=== PATIENT | male | born 1960 | race Hispanic/Latino ===

== ENCOUNTER 2017-02-26 23:08 | Emergency (ER) | payer BC, OTHER ==
[2017-02-26 23:20] VITALS: BMI 30.7
[2017-02-26 23:26] VITALS: TEMP 97.9
[2017-02-26] MEDS ORDERED: Sodium Chloride 0.9% 1,000 ML IV STA (23:45)
--- NOTE | 2017-02-26 23:48 | ED PDOC ---
Arrival/HPI - General Chief Complaint: Medical Clearance Time Seen by Provider: 02/26/17 23:35 Historian: Patient - History of Present Illness Narrative History of Present Illness (Text): 02/26/17 23:43 Taye Cristobal is a 56 year old male, whose past medical history includes renal CA on remission, presents to the emergency department complaining of sudden onset right low back and flank pain for past 2 hours. States that he has not experienced this pain before. States last chemo therapy was over a year ago , done by . Patient states he takes 2 Oxycodones at home daily for chronic body pains, but states he has not taken any in over a month. Denies any dysuria or hematuria. Denies fever, chills, headache, dizziness, nausea, vomiting, diarrhea, or any other complaints at this time. PMD: Oncologist: Dr. Tadeo. Time/Duration: 1-3 hours (2 hours ) Symptom Onset: Sudden Symptom Course: Unchanged Severity Level: Moderate Activities at Onset: Light Context: Home Past Medical History - Provider Review Nursing Documentation Reviewed: Yes - Past History Past History: No Previous - Infectious Disease Hx of Infectious Diseases: None - Tetanus Immunization Tetanus Immunization: Unknown - Cardiac Hx Cardiac Disorders: No Other/Comment: RENAL DISEASE - Pulmonary Hx Bronchitis: Yes - Neurological Hx Neurological Disorder: No Hx Paralysis: No - HEENT Hx HEENT Disorder: Yes (CELLULITIS TO LEFT EYE) - Renal Hx Renal Disorder: Yes (RENAL INSUFFICIENCY) Hx Dialysis: No - Endocrine/Metabolic Hx Endocrine Disorders: No - Hematological/Oncological Hx Blood Disorders: No (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ALT.) - Integumentary Hx Dermatological Disorder: (CELLULITIS TO L EYE 06-26-14,TATTOOS) Other/Comment: chemo 5 months ago for renal disease - Musculoskeletal/Rheumatological Hx Musculoskeletal Disorders: No Hx Falls: No - Gastrointestinal Hx Gastrointestinal Disorders: No Other/Comment: colonoscopy - Genitourinary/Gynecological Hx Genitourinary Disorders: Yes - Psychiatric Hx Substance Use: No - Surgical History Other/Comment: deviated septum 2014 left ft sx 1975 - Anesthesia Hx Anesthesia: Yes Hx Anesthesia Reactions: No Hx Malignant Hyperthermia: No - Suicidal Assessment Feels Threatened In Home Enviroment: No Family/Social History - Physician Review Nursing Documentation Reviewed: Yes Family/Social History: No Known Family HX Smoking Status: Never Smoked Hx Alcohol Use: No Hx Substance Use: No Hx Substance Use Treatment: No Allergies/Home Meds Allergies/Adverse Reactions: Allergies No Known Allergies Allergy (Verified 02/26/17 23:20) Review of Systems - Physician Review All systems were reviewed & negative as marked: Yes - Review of Systems Constitutional: Normal. absent: Fatigue, Fevers Respiratory: Normal. absent: SOB, Cough Cardiovascular: Normal. absent: Chest Pain Gastrointestinal: Normal. absent: Abdominal Pain, Diarrhea, Nausea, Vomiting Musculoskeletal: Other (right flank pain ) Psychiatric: Normal Physical Exam Vital Signs Reviewed: Yes Vital Signs Temp Pulse Resp BP Pulse Ox 02/27/17 02:09 61 18 136/77 96 02/27/17 00:45 60 18 157/94 H 95 02/26/17 23:23 97.9 F 84 20 216/84 H 99 Temperature: Afebrile Blood Pressure: Hypertensive Pulse: Regular Respiratory Rate: Normal Appearance: Positive for: Non-Toxic Pain Distress: None Mental Status: Positive for: Alert and Oriented X 3 - Systems Exam Head: Present: Atraumatic, Normocephalic Pupils: Present: PERRL Conjunctiva: Present: Normal Mouth: Present: Moist Mucous Membranes Respiratory/Chest: Present: Clear to Auscultation, Good Air Exchange. No: Respiratory Distress, Accessory Muscle Use Cardiovascular: Present: Regular Rate and Rhythm, Normal S1, S2. No: Murmurs Abdomen: Present: Normal Bowel Sounds. No: Tenderness, Distention, Peritoneal Signs Back: Present: CVA Tenderness (right CVA ), Paraspinal Tenderness (right) Upper Extremity: Present: NORMAL PULSES Lower Extremity: Present: NORMAL PULSES, Normal ROM, Neurovascularly Intact Neurological: Present: GCS=15, CN II-XII Intact, Speech Normal, Motor Func Grossly Intact, Normal Sensory Function, Norm Deep Tendon Reflexes Skin: Present: Warm, Dry, Normal Color. No: Rashes Psychiatric: Present: Alert, Oriented x 3, Normal Insight, Normal Concentration Medical Decision Making ED Course and Treatment: Progress Notes: 02/27/17 01:57 CT Abdomen and Pelvis results reviewed FINDINGS: Lower thorax: The bilateral lung bases are clear. ABDOMEN: Liver: No acute findings Gallbladder and bile ducts: The gallbladder is only minimally distended, with a single calcified a dependent stone. No intra-extrahepatic biliary ductal dilation. Pancreas: Limited evaluation secondary to the lack of intravenous contrast. Spleen: No acute findings. Adrenals: No acute findings. Kidneys and ureters: No obstructing stones. No hydronephrosis. The bilateral kidneys are nodular in contour. Moderate perinephric inflammatory change, more than one would expect for a patient of this age. PELVIS: Bladder: No acute findings. Reproductive: No acute findings. Appendix: The appendix is of normal caliber (series 2, image 117; series 601, image 47). ABDOMEN and PELVIS: Stomach and bowel: No acute findings. Peritoneum: No acute findings. Lymph nodes: Limited evaluation without intravenous contrast. Vasculature: No aortic aneurysm. Bones: No acute fracture. IMPRESSION: No obstructive uropathy. Infiltration of the perinephric fat within the retroperitoneum, more than normally expected for a patient of this age. Cholelithiasis, without cholecystitis. Normal appendix. On reevaluation patient states that his pain has resolved completely. He is comfortable w dc. Follow up and return precautions advised - Lab Interpretations Lab Results: 02/26/17 23:50 02/26/17 23:50 Lab Results 02/27/17 01:10: Urine Color Yellow, Urine Appearance Clear, Urine pH 6.0, Ur Specific [place] 1.010, Urine Protein Negative, Urine Glucose (UA) Negative, Urine Ketones Negative, Urine Blood Negative, Urine Nitrate Negative, Urine Bilirubin Negative, Urine Urobilinogen 0.2, Ur Leukocyte Esterase Negative, Urine Opiates Screen Negative, Urine Methadone Screen Negative, Ur Barbiturates Screen Negative, Ur Phencyclidine Scrn Negative, Ur Amphetamines Screen Negative , U Benzodiazepines Scrn Negative, U Oth Cocaine Metabols Negative, U Cannabinoids Screen Negative 02/26/17 23:50: WBC 9.8 D, RBC 5.13, Hgb 15.4, Hct 43.0, MCV 83.8, MCH 30.0, MCHC 35.8, RDW 12.7, Plt Count 188, MPV 9.5, Gran % 68.8 H, Lymph % (Auto) 21.0 L, [place] % (Auto) 7.8 H, Eos % (Auto) 2.2, Baso % (Auto) 0.2, Gran # 6.72 H, Lymph # 2.1, [place] # 0.8 H, Eos # 0.2, Baso # 0.02, Sodium 138, Potassium 3.5 L, Chloride 100, Carbon Dioxide 26, Anion Gap 16, BUN 32 H, Creatinine 2.1 H, Est GFR ( Amer) 40, Est GFR (Non-Af Amer) 33, Random Glucose 110, Calcium 9.4 , Total Bilirubin 0.4, AST 22, ALT 36, Alkaline Phosphatase 82, Total Protein 7.8, Albumin 4.1, Globulin 3.7, Albumin/Globulin Ratio 1.1, Lipase 90, Alcohol, Quantitative < 10 - RAD Interpretation Radiology Orders: 02/26/17 23:44 ABD & PELVIS W/O PO OR IV CONT [CT] Stat - Medication Orders Current Medication Orders: Discontinued Medications Sodium Chloride (Sodium Chloride 0.9%) 1,000 mls @ 999 mls/hr IV .Q1H1M STA Stop: 02/27/17 00:45 Last Admin: 02/26/17 23:59 Dose: 999 MLS/HR eMAR Start Stop Document 02/26/17 23:59 SB (Rec: 02/26/17 23:59 [facility]-[id number]) Intravenous Solution Start Date 02/26/17 Start Time 23:59 End Date 02/26/17 Ketorolac Tromethamine (Toradol) 10 mg IVP STAT STA Stop: 02/26/17 23:46 Last Admin: 02/26/17 23:59 Dose: 10 MG IVP Administration Document 02/26/17 23:59 SB (Rec: 02/27/17 00:00 [facility]-[id number]) Charges for Administration # of IVP Administrations 1 Ondansetron HCl (Zofran Inj) 4 mg IVP ONCE ONE Stop: 02/26/17 23:53 Last Admin: 02/27/17 00:00 Dose: 4 MG IVP Administration Document 02/27/17 00:00 SB (Rec: 02/27/17 00:00 [facility]-[id number]) Charges for Administration # of IVP Administrations 1 - Scribe Statement The provider has reviewed the documentation as recorded by the Ritaibe Ventura Rivera Provider Attestation: All medical record entries made by the Scribe were at my direction and personally dictated by me. I have reviewed the chart and agree that the record accurately reflects my personal performance of the history, physical exam, medical decision making, and the department course for this patient. I have also personally directed, reviewed, and agree with the discharge instructions and disposition. Disposition/Present on Arrival - Present on Arrival Any Indicators Present on Arrival: No History of DVT/PE: No History of Uncontrolled Diabetes: No Urinary Catheter: No History of Decub. Ulcer: No History Surgical Site Infection Following: None - Disposition Have Diagnosis and Disposition been Completed?: Yes Diagnosis: Low back pain Disposition: HOME/ ROUTINE Disposition Time: 02:00 Condition: IMPROVED Discharge Instructions (ExitCare): Back Pain (ED) Additional Instructions: Please follow up with your doctor. Return to the ER for any worsening symptoms or for any other concerns. Prescriptions: Naproxen [Naprosyn] 500 mg PO Q12H PRN #6 tablet PRN Reason: Pain, Moderate (4-7)
[2017-02-26 23:58] LABS: ADD MANUAL DIFF? NO
[2017-02-27 00:03] LABS: BASO # 0.02 K/mm3 (0.0-2.0); BASO % 0.2 % (0.0-3.0); EOS # 0.2 (0.0-0.7); EOS % 2.2 % (1.5-5.0); GRAN # 6.72 (1.4-6.5); GRAN % 68.8 % (50.0-68.0); LYMPH # 2.1 (1.2-3.4); MEAN CELL VOLUME 83.8 fL (80.0-105.0); MEAN CORPUSCULAR HGB CONC 35.8 g/dl (31.0-37.0); MEAN PLATELET VOLUME 9.5 fl (7.0-11.0); MONO # 0.8 (0.1-0.6); MONO % 7.8 % (1.0-6.0); PLATELET COUNT 188 10^3/uL (120.0-450.0); RED CELL DISTRIBUTION WIDTH 12.7 % (11.5-14.5); WHITE BLOOD COUNT 9.8 10^3/ul (4.5-11.0)
[2017-02-27 00:14] LABS: ALB/GLOB RATIO 1.1 (1.1-1.8); BILIRUBIN,TOTAL 0.4 mg/dL (0.2-1.3); CALCIUM 9.4 mg/dL (8.4-10.5); POTASSIUM 3.5 mmol/L (3.6-5.0); TOTAL PROTEIN 7.8 g/dL (5.8-8.3)
--- NOTE | 2017-02-27 00:48 | CT ---
EXAM: CT Abdomen and Pelvis Without Intravenous Contrast CLINICAL HISTORY: 56 years old, male; Pain; Abdominal pain; Flank; Other: Unkown; Prior surgery; Surgery type: Hernia. Kidney biopsy; Additional info: Flank pain TECHNIQUE: Axial computed tomography images of the abdomen and pelvis without intravenous contrast. This CT exam was performed using one or more of the following dose reduction techniques: automated exposure control, adjustment of the mA and/or kV according to patient size, and/or use of iterative reconstruction technique. Coronal and sagittal reformatted images were created and reviewed. COMPARISON: No relevant prior studies available. FINDINGS: Lower thorax: The bilateral lung bases are clear. ABDOMEN: Liver: No acute findings Gallbladder and bile ducts: The gallbladder is only minimally distended, with a single calcified a dependent stone. No intra-extrahepatic biliary ductal dilation. Pancreas: Limited evaluation secondary to the lack of intravenous contrast. Spleen: No acute findings. Adrenals: No acute findings. Kidneys and ureters: No obstructing stones. No hydronephrosis. The bilateral kidneys are nodular in contour. Moderate perinephric inflammatory change, more than one would expect for a patient of this age. PELVIS: Bladder: No acute findings. Reproductive: No acute findings. Appendix: The appendix is of normal caliber (series 2, image 117; series 601, image 47). ABDOMEN and PELVIS: Stomach and bowel: No acute findings. Peritoneum: No acute findings. Lymph nodes: Limited evaluation without intravenous contrast. Vasculature: No aortic aneurysm. Bones: No acute fracture. IMPRESSION: No obstructive uropathy. Infiltration of the perinephric fat within the retroperitoneum, more than normally expected for a patient of this age. Cholelithiasis, without cholecystitis. Normal appendix.
[2017-02-27 01:28] LABS: URINE BILIRUBIN NEGATIVE (NEGATIVE); URINE BLOOD NEGATIVE (NEGATIVE); URINE GLUCOSE (UA) NEGATIVE (NEGATIVE); URINE KETONE NEGATIVE (NEGATIVE); URINE LEUKOCYTE ESTERASE NEGATIVE Leu/uL (NEGATIVE); URINE PROTEIN NEGATIVE mg/dL (<30 mg/dL); URINE UROBILINOGEN 0.2 E.U./dL (<1 E.U./dL)
[2017-02-27 01:33] LABS: URINE APPEARANCE CLEAR (CLEAR); URINE COLOR YELLOW (YELLOW)
[2017-02-27 02:10] VITALS: BP 136/77; PULSE 61; RESP 18; O2SAT 96
== END 2017-02-27 02:18 | disposition home or self-care (01) ==
LOC: ED 23:08
DX: M54.5 Low back pain (principal); Z85.528 Personal history of other malignant neoplasm of kidney
CPT/HCPCS: 74176; 80053; 81003; 83690; 85025; 96374; 96375; 99283; G0480; J1885; J2405; J7040

== ENCOUNTER 2017-06-09 19:48 | Emergency (ER) | payer SELFPAY ==
[2017-06-09 19:49] VITALS: BMI 30.7
[2017-06-09 20:54] VITALS: RESP 18; TEMP 98.2
--- NOTE | 2017-06-09 21:55 | ED PDOC ---
Arrival/HPI - General Chief Complaint: Abnormal Skin Integrity Time Seen by Provider: 06/09/17 21:21 Historian: Patient - History of Present Illness Narrative History of Present Illness (Text): 06/09/17 21:53 57 y/o male, c/o lt. pelvic pain s/p slipped and fall on the lt. hip x 1 week from slipped on the wooden step. Aching pain, painful to walk and sit, no fever or chills, no headache or night sweat, no dizziness, no hematuria, no back or neck pain, no numbness or tinging, no other medical or psychological complaints. Past Medical History - Provider Review Nursing Documentation Reviewed: Yes - Past History Past History: No Previous - Infectious Disease Hx of Infectious Diseases: None - Tetanus Immunization Tetanus Immunization: Unknown - Cardiac Hx Cardiac Disorders: No Other/Comment: RENAL DISEASE - Pulmonary Hx Bronchitis: Yes - Neurological Hx Neurological Disorder: No Hx Paralysis: No - HEENT Hx HEENT Disorder: Yes (CELLULITIS TO LEFT EYE) - Renal Hx Renal Disorder: Yes (RENAL INSUFFICIENCY) Hx Dialysis: No - Endocrine/Metabolic Hx Endocrine Disorders: No - Hematological/Oncological Hx Blood Disorders: No (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ALT.) - Integumentary Hx Dermatological Disorder: (CELLULITIS TO L EYE 06-26-14,TATTOOS) Other/Comment: chemo 5 months ago for renal disease - Musculoskeletal/Rheumatological Hx Musculoskeletal Disorders: No Hx Falls: No - Gastrointestinal Hx Gastrointestinal Disorders: No Other/Comment: colonoscopy - Genitourinary/Gynecological Hx Genitourinary Disorders: Yes - Psychiatric Hx Psychophysiologic Disorder: No (OCCASIONAL BEERS) Hx Substance Use: No - Surgical History Other/Comment: deviated septum 2014 left ft sx 1975 - Anesthesia Hx Anesthesia: Yes Hx Anesthesia Reactions: No Hx Malignant Hyperthermia: No - Suicidal Assessment Feels Threatened In Home Enviroment: No Family/Social History - Physician Review Nursing Documentation Reviewed: Yes Family/Social History: Unknown Family HX Smoking Status: Never Smoked Hx Alcohol Use: No Hx Substance Use: No Hx Substance Use Treatment: No Allergies/Home Meds Allergies/Adverse Reactions: Allergies No Known Allergies Allergy (Verified 02/26/17 23:20) Review of Systems - Review of Systems Constitutional: absent: Fatigue, Fevers Eyes: absent: Vision Changes ENT: absent: Hearing Changes Respiratory: absent: SOB, Cough Cardiovascular: absent: Chest Pain Gastrointestinal: absent: Abdominal Pain, Nausea, Vomiting Musculoskeletal: Arthralgias. absent: Back Pain, Myalgias Skin: absent: Rash, Pruritis, Skin Lesions Neurological: absent: Headache, Dizziness Physical Exam Vital Signs Reviewed: Yes Vital Signs Temp Pulse Resp BP Pulse Ox 06/09/17 20:48 98.2 F 84 18 118/75 99 Temperature: Afebrile Blood Pressure: Normal Pulse: Regular Respiratory Rate: Normal Appearance: Positive for: Well-Appearing, Non-Toxic, Comfortable Pain Distress: Mild Mental Status: Positive for: Alert and Oriented X 3 - Systems Exam Head: Present: Atraumatic, Normocephalic Pupils: Present: PERRL Extroacular Muscles: Present: EOMI Conjunctiva: Present: Normal Mouth: Present: Moist Mucous Membranes Neck: Present: Normal Range of Motion Respiratory/Chest: Present: Clear to Auscultation, Good Air Exchange. No: Respiratory Distress, Accessory Muscle Use Cardiovascular: Present: Regular Rate and Rhythm, Normal S1, S2. No: Murmurs Abdomen: Present: Normal Bowel Sounds. No: Tenderness, Distention, Peritoneal Signs Back: Present: Normal Inspection. No: CVA Tenderness, Midline Tenderness, Paraspinal Tenderness, Pain with Leg Raise, Decubitus Ulcer Upper Extremity: Present: Normal Inspection. No: Cyanosis, Edema Lower Extremity: Present: Normal Inspection, Other (+ttp on the pelvic region). No: Edema Neurological: Present: GCS=15, Speech Normal, Gait Normal, Memory Normal Skin: Present: Warm, Dry, Normal Color. No: Rashes Psychiatric: Present: Alert, Oriented x 3, Normal Insight, Normal Concentration Medical Decision Making ED Course and Treatment: 06/09/17 21:54 -pelvic and hip CT -toradol IM -observe and reassess 06/09/17 23:51 -CT hip and pelvis show no acute fracture or subluxation, there is degenerative changes to the lower spine -Pain decreased, feeling much better, will discharge home. -Discharge home with naproxen, ice compression, avoid excessive sitting or standing, follow up with your own pmd and orthopedic within 2 days, return to the ER for any new or worsening signs or symptoms. - RAD Interpretation Radiology Orders: 06/09/17 21:53 PELVIS W/O PO OR IV CONTRAST [CT] Stat 06/09/17 21:55 HIP WITHOUT CONTRAST LEFT [CT] Stat CT Pelvis: FINDINGS: Bones/joints: L4 and L5 vertebral bodies are normal in height. There degenerative changes at L5/S1. There is disc space narrowing and vacuum phenomenon. There is osteophyte formation. Posterior disc bulging. Sacroiliac joints are patent. No sacral fractures identified. There are no pelvic fractures. There are no hip fractures. Soft tissues: unremarkable Vasculature: There are vascular calcifications. Stomach and bowel: There is a nonspecific gas pattern in the pelvis. Appendix and terminal ileum are unremarkable. No obstruction. No mucosal thickening. Intraperitoneal space: There is no free air or free fluid. Bladder: Bladder is partially distended. No stones. Reproductive: Seminal vesicles and prostate are unremarkable. IMPRESSION: No acute or healing fractures; degenerative changes L5-S1; no acute intraabdominal/pelvic abnormality Thank you for allowing us to participate in the care of your patient. Dictated and Authenticated by: Dian Nicholas MD 06/09/2017 11:30 PM Eastern Time ( & [place]) CT Left Hip: IMPRESSION: No acute or healing fracture; no focal soft tissue abnormality Thank you for allowing us to participate in the care of your patient. Dictated and Authenticated by: Dian Nicholas MD 06/09/2017 11:33 PM Eastern Time ([place] & [place]) Nutrition Manager: Radiologist - Medication Orders Current Medication Orders: Discontinued Medications Ketorolac Tromethamine (Toradol) 60 mg IM STAT STA Stop: 06/09/17 21:57 Last Admin: 06/09/17 22:27 Dose: 60 mg - PA / INTERN ARCHITECT / Resident Statement / has reviewed & agrees with the documentation as recorded. Disposition/Present on Arrival - Present on Arrival Any Indicators Present on Arrival: No History of DVT/PE: No History of Uncontrolled Diabetes: No Urinary Catheter: No History of Decub. Ulcer: No History Surgical Site Infection Following: None - Disposition Have Diagnosis and Disposition been Completed?: Yes Diagnosis: Accidental fall, Contusion Disposition: HOME/ ROUTINE Disposition Time: 23:52 Patient Plan: Discharge Condition: IMPROVED Additional Instructions: -Discharge home with naproxen, ice compression, avoid excessive sitting or standing, follow up with your own pmd and orthopedic within 2 days, return to the ER for any new or worsening signs or symptoms. Prescriptions: Naproxen 500 mg PO BID PRN #20 tab PRN Reason: Other Referrals: MJHsara Khan, [Primary Care Provider] - Follow up with primary Joaquina Cui MD [Staff Provider] - Follow up with primary Forms: [facility] ([place]i), WORK NOTE
--- NOTE | 2017-06-09 23:31 | CT ---
EXAM: CT Pelvis Without Intravenous Contrast CLINICAL HISTORY: 57 years old, male; Injury or trauma; Fall; Initial encounter; Blunt trauma (contusions or hematomas); Left; Pelvic region; Injury date: 1 week ago; Additional info: Lt. Pelvis pain S/P fall x 1 week TECHNIQUE: Axial computed tomography images of the pelvis without intravenous contrast. This CT exam was performed using one or more of the following dose reduction techniques: automated exposure control, adjustment of the mA and/or kV according to patient size, and/or use of iterative reconstruction technique. Coronal and sagittal reformatted images were created and reviewed. EXAM DATE/TIME: 06/09/2017 9:53 PM COMPARISON: CT - ABD PELVIS W/O PO OR IV CONT 02/27/2017 12:00:55 AM FINDINGS: Bones/joints: L4 and L5 vertebral bodies are normal in height. There degenerative changes at L5/S1. There is disc space narrowing and vacuum phenomenon. There is osteophyte formation. Posterior disc bulging. Sacroiliac joints are patent. No sacral fractures identified. There are no pelvic fractures. There are no hip fractures. Soft tissues: unremarkable Vasculature: There are vascular calcifications. Stomach and bowel: There is a nonspecific gas pattern in the pelvis. Appendix and terminal ileum are unremarkable. No obstruction. No mucosal thickening. Intraperitoneal space: There is no free air or free fluid. Bladder: Bladder is partially distended. No stones. Reproductive: Seminal vesicles and prostate are unremarkable. IMPRESSION: No acute or healing fractures; degenerative changes L5-S1; no acute intra-abdominal/pelvic abnormality
--- NOTE | 2017-06-09 23:34 | CT ---
EXAM: CT Left Lower Extremity Without Intravenous Contrast, Hip CLINICAL HISTORY: 57 years old, male; Injury or trauma; Fall; Initial encounter; Blunt trauma; Hip; Left; Injury date: 1 week ago; Additional info: Lt. Hip/gluteal pain S/P fall x 1 week TECHNIQUE: Axial computed tomography images of the left hip without intravenous contrast. This CT exam was performed using one or more of the following dose reduction techniques: automated exposure control, adjustment of the mA and/or kV according to patient size, and/or use of iterative reconstruction technique. Coronal and sagittal reformatted images were created and reviewed. EXAM DATE/TIME: 06/09/2017 9:55 PM COMPARISON: CT - ABD PELVIS W/O PO OR IV CONT 02/27/2017 12:00:55 AM FINDINGS: Bones/joints: Left acetabulum is intact. Left ischium and pubis are intact. Proximal left femur is intact. There are no acute or healing fractures. Femoral head is anatomically positioned within the acetabulum. Soft tissues: There is no focal soft tissue swelling about the left hip. Vasculature: Vascular structures are unremarkable. Lymph nodes: There are shotty inguinal nodes. IMPRESSION: No acute or healing fracture; no focal soft tissue abnormality
[2017-06-10] VITALS: BP 128/74; PULSE 74; O2SAT 100
== END 2017-06-10 | disposition home or self-care (01) ==
LOC: ED 19:48
DX: S30.0XXA Contusion of lower back and pelvis, initial encounter (principal); W01.0XXA Fall on same level from slipping, tripping and stumbling without subsequent striking against object, initial encounter; Y93.9 Activity, unspecified; Y92.9 Unspecified place or not applicable
CPT/HCPCS: 72192; 73700; 96372; 99283; J1885

== ENCOUNTER 2017-08-26 18:35 | Emergency (ER) | payer MEDICARE ==
[2017-08-26 18:43] VITALS: BMI 26.1
[2017-08-26 18:48] VITALS: BP 190/106; PULSE 80; RESP 16; TEMP 98.8; O2SAT 96
[2017-08-26] MEDS ORDERED: PrednisoLONE 1% Opht Susp(5 ml) OD STA (19:15)
--- NOTE | 2017-08-26 19:28 | ED PDOC ---
Arrival/HPI - General Chief Complaint: Eye Problem Time Seen by Provider: 08/26/17 18:53 Historian: Patient - History of Present Illness Narrative History of Present Illness (Text): 08/26/17 19:33 57 y/o male w/ hx of uveitis presents with right eye pain since last night. Pain is worse with light. States his vision is blurry in the right eye due to watery discharge. States he gets the same pain every yr due to his hx of uveitis. His soft iron inspector is. Dr. Glover and he follows up with him every yr. pt denies any recent trauma to the eye or foreign body sensation. Past Medical History - Provider Review Nursing Documentation Reviewed: Yes - Travel History Have you recently traveled outside [place] w/in the past 3 mons?: No - Past History Past History: No Previous - Infectious Disease Hx of Infectious Diseases: None - Tetanus Immunization Tetanus Immunization: Unknown - Cardiac Hx Cardiac Disorders: No Hx Hypertension: Yes Other/Comment: RENAL DISEASE - Pulmonary Hx Bronchitis: Yes - Neurological Hx Neurological Disorder: No Hx Paralysis: No - HEENT Hx HEENT Disorder: Yes (CELLULITIS TO LEFT EYE) - Renal Hx Renal Disorder: Yes (RENAL INSUFFICIENCY) Hx Dialysis: No Other/Comment: kidney problem - Endocrine/Metabolic Hx Endocrine Disorders: No - Hematological/Oncological Hx Blood Disorders: No (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ALT.) - Integumentary Hx Dermatological Disorder: (CELLULITIS TO L EYE 06-26-14,TATTOOS) Other/Comment: chemo 5 months ago for renal disease - Musculoskeletal/Rheumatological Hx Musculoskeletal Disorders: No Hx Falls: No - Gastrointestinal Hx Gastrointestinal Disorders: No Other/Comment: colonoscopy - Genitourinary/Gynecological Hx Genitourinary Disorders: Yes - Psychiatric Hx Psychophysiologic Disorder: No (OCCASIONAL BEERS) Hx Substance Use: No - Surgical History Other/Comment: deviated septum 2014 left ft sx 1975 - Anesthesia Hx Anesthesia: Yes Hx Anesthesia Reactions: No Hx Malignant Hyperthermia: No - Suicidal Assessment Feels Threatened In Home Enviroment: No Family/Social History - Physician Review Nursing Documentation Reviewed: Yes Family/Social History: Unknown Family HX Smoking Status: Never Smoked Hx Alcohol Use: Yes Frequency of alcohol use: Socially Hx Substance Use: No Hx Substance Use Treatment: No Allergies/Home Meds Allergies/Adverse Reactions: Allergies No Known Allergies Allergy (Verified 02/26/17 23:20) Home Medications: Home Meds Medication Instructions Recorded Confirmed No Known Home Med 08/26/17 08/26/17 Review of Systems - Physician Review All systems were reviewed & negative as marked: Yes - Review of Systems Constitutional: absent: Fevers Eyes: Vision Changes, Photophobia, Eye Pain Physical Exam Vital Signs Reviewed: Yes Vital Signs Temp Pulse Resp BP Pulse Ox 08/26/17 18:35 98.8 F 80 16 190/106 H 96 Temperature: Afebrile Blood Pressure: Hypertensive Pulse: Regular Respiratory Rate: Normal Appearance: Positive for: Non-Toxic Pain Distress: Mild Mental Status: Positive for: Alert and Oriented X 3 - Systems Exam Head: Present: Atraumatic, Normocephalic Pupils: Present: Other (pupils round and reactive to light) Extroacular Muscles: Present: EOMI Conjunctiva: Present: Injected (right ) Neurological: Present: GCS=15, CN II-XII Intact Psychiatric: Present: Alert, Oriented x 3 Medical Decision Making ED Course and Treatment: 08/26/17 19:[address] Glover who recommended administering pred forte and follow up with him in the office on Monday08/28/17 at 9 am. Pt expressed understanding and agrees with the plan. Reassessment Condition: Improved - Medication Orders Current Medication Orders: Discontinued Medications Acetaminophen (Tylenol 325mg Tab) 975 mg PO STAT STA Stop: 08/26/17 19:20 Last Admin: 08/26/17 19:25 Dose: 975 mg MAR Pain/Vitals Document 08/26/17 19:25 PATRICIA (Rec: 08/26/17 19:25 PATRICIA [id number]) Pain Reassessment Is This A Pain ReAssessment? No Prednisolone Acetate (Pred Forte 1% Opht Susp) 2 ml OD STAT STA Stop: 08/26/17 19:16 Last Admin: 08/26/17 19:28 Dose: 2 drop Disposition/Present on Arrival - Present on Arrival Any Indicators Present on Arrival: No History of DVT/PE: No History of Uncontrolled Diabetes: No Urinary Catheter: No History of Decub. Ulcer: No History Surgical Site Infection Following: None - Disposition Have Diagnosis and Disposition been Completed?: Yes Diagnosis: Uveitis Disposition: HOME/ ROUTINE Disposition Time: 19:25 Patient Plan: Discharge Patient Problems: Current Active Problems Problem Status Onset Uveitis Acute Condition: STABLE Discharge Instructions (ExitCare): Eye Pain (ED) Print Language: SWEDISH Additional Instructions: Administer pred forte eye drop 2 drops on right eye 4 times a day. Follow up with Dr. Glover on Monday08/28/17 at 9 am. Referrals: Jovanni Garrido MD [Primary Care Provider] - Follow up with primary Ke Glover MD [Staff Provider] - Follow up with primary Forms: [employer] ([employer])
== END 2017-08-26 19:36 | disposition home or self-care (01) ==
LOC: ED 18:35
DX: H20.9 Unspecified iridocyclitis (principal)

== ENCOUNTER 2017-11-13 12:59 | Inpatient (IN) | payer MEDICARE ==
[2017-11-13 13:12] VITALS: BMI 25.4
[2017-11-13] MEDS ORDERED: Tetracaine 0.5% Ophth 2 ML BOTTLE OD STA (13:21)
[2017-11-13] MEDS ORDERED: Oxycodone/Acetaminophen 5/325 mg Tab PO STA (13:22)
--- NOTE | 2017-11-13 13:24 | ED PDOC ---
Arrival/HPI - General Chief Complaint: Eye Problem Time Seen by Provider: 11/13/17 13:13 Historian: Patient - History of Present Illness Narrative History of Present Illness (Text): 11/13/17 14:38 pt p/w + ~ 1-2 days onset of right eye pain/right nasal region pain with clear nasal discharge; pt states since last night with blurry vision; pt states similiar symptoms occurred 1 year ago and was dx with Uveitis/possible nasal infection; pt had remaining optho steroids left from last treatment and he used a few drops of it last night; pt states pain/itching/irritation is severe at most pain is 8-9/10; pt states no fever/chills/sweats, + mild headache, no neck pain, no cp/sob/palpitations, no abd pain, no n/v, no numbness/tingling, no urinary/bowel changes, no fall/trauma/sick contact, no travel; pt is here for further eval; pt's without other complaints. PMD: Dr. Jovanni Garrido 11/13/17 18:17 Time/Duration: < week (2 days) Symptom Onset: Sudden Symptom Course: Worsening Quality: Stabbing Severity Level: 9, Severe Activities at Onset: Light Past Medical History - Provider Review Nursing Documentation Reviewed: Yes - Travel History Have you recently traveled outside [place] w/in the past 3 mons?: No - Past History Past History: No Previous - Infectious Disease Hx of Infectious Diseases: None - Tetanus Immunization Tetanus Immunization: Unknown - Reproductive Currently Lactating: No - Cardiac Hx Cardiac Disorders: No Hx Hypertension: Yes Other/Comment: RENAL DISEASE - Pulmonary Hx Bronchitis: Yes - Neurological Hx Neurological Disorder: No - HEENT Hx HEENT Disorder: Yes (CELLULITIS TO LEFT EYE) - Renal Hx Renal Disorder: Yes (RENAL INSUFFICIENCY) Hx Dialysis: No Other/Comment: kidney problem - Endocrine/Metabolic Hx Endocrine Disorders: No - Hematological/Oncological Hx Blood Disorders: No (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ALT.) - Integumentary Hx Dermatological Disorder: (CELLULITIS TO L EYE 06-26-14,TATTOOS) Other/Comment: chemo 5 months ago for renal disease - Musculoskeletal/Rheumatological Hx Musculoskeletal Disorders: No - Gastrointestinal Hx Gastrointestinal Disorders: No Other/Comment: colonoscopy - Genitourinary/Gynecological Hx Genitourinary Disorders: Yes - Psychiatric Hx Psychophysiologic Disorder: No (OCCASIONAL BEERS) Hx Substance Use: No - Surgical History Other/Comment: deviated septum 2014 left ft sx 1976 - Anesthesia Hx Anesthesia: Yes Hx Anesthesia Reactions: No Hx Malignant Hyperthermia: No - Suicidal Assessment Feels Threatened In Home Enviroment: No Family/Social History - Physician Review Nursing Documentation Reviewed: Yes Family/Social History: No Known Family HX Smoking Status: Never Smoked Hx Alcohol Use: Yes Frequency of alcohol use: Socially Hx Substance Use: No Hx Substance Use Treatment: No Allergies/Home Meds Allergies/Adverse Reactions: Allergies No Known Allergies Allergy (Verified 02/26/17 23:20) Home Medications: Home Meds Medication Instructions Recorded Confirmed No Known Home Med 08/26/17 08/26/17 Review of Systems - Review of Systems Constitutional: Normal Eyes: Vision Changes, Eye Pain ENT: Rhinorrhea Respiratory: Normal Cardiovascular: Normal Gastrointestinal: Normal Genitourinary Male: Normal Musculoskeletal: Normal Skin: Normal Neurological: Normal Endocrine: Normal Hemo/Lymphatic: Normal Psychiatric: Normal Physical Exam Vital Signs Reviewed: Yes (elevated BP) Vital Signs Temp Pulse Resp BP Pulse Ox 11/13/17 17:44 51 L 18 149/90 98 11/13/17 13:00 97.7 F 70 18 184/102 H 99 Temperature: Afebrile Blood Pressure: Hypertensive Pulse: Regular Respiratory Rate: Normal Appearance: Positive for: Well-Appearing, Non-Toxic, Other (uncomfortable, moderate distress due to right eye pain, resting on exam bed, cooperative, alert /awake) Pain Distress: Moderate Mental Status: Positive for: Alert and Oriented X 3 - Systems Exam Head: Present: Atraumatic, Normocephalic Pupils: Present: Sluggish (right eye: sclera injection/swelling/chemosis is noted; does not traverse the cornea; + slight photophobia is noted; Fluroescine stain: NO uptake is noted; no FB/obvious masses/lesions noted; visual acuity: 20 /40 right and left, 20/40 b/l; left EYE: WNL, PERRLA, EOMI, scler anicteric), Other Extroacular Muscles: Present: EOMI, Other Conjunctiva: Present: Normal Mouth: Present: Moist Mucous Membranes, Other (uvula/tongue are midline, no exudate/lesions, no drooling/stridor) Pharnyx: Present: Normal Neck: Present: Normal Range of Motion, Trachea Midline. No: MIDLINE TENDERNESS Respiratory/Chest: Present: Clear to Auscultation, Good Air Exchange, Other ( CTA b/l, no w/r/r). No: Respiratory Distress, Accessory Muscle Use Cardiovascular: Present: Regular Rate and Rhythm, Normal S1, S2, Other (no regurg). No: Murmurs Abdomen: Present: Normal Bowel Sounds. No: Tenderness, Distention, Peritoneal Signs Back: Present: Normal Inspection Upper Extremity: Present: Normal Inspection, Normal ROM, NORMAL PULSES, Neurovascularly Intact, Capillary Refill < 2s. No: Cyanosis, Edema Lower Extremity: Present: Normal Inspection, NORMAL PULSES, Other (+1/5 b/l pitting edema noted up to mid tib-fib; no mac's sign noted b/l, strength 5/5 grossly intact in all limbs, neurovasc intact b/l). No: Edema Neurological: Present: GCS=15, CN II-XII Intact, Speech Normal Skin: Present: Warm, Dry, Normal Color, Other (cap refill < 1 sec, no ulcerations, no petechiae, no pallor). No: Rashes Psychiatric: Present: Alert, Oriented x 3, Normal Insight, Normal Concentration Medical Decision Making ED Course and Treatment: 11/13/17 14:12 Impression: right eye pain/right face pain i have consider all the differential diagnosis regarding pt's chief medical complaints/clinical findings, including but are not limited to: uveitis vs iritis, corneal abrasion; FB; orbital/pre-orbital cellulitis; nasal infection; shingles A/P: right eye pain - labs - cultures - iv - ct - observe - supportive care 11/13/2017 14:[address] IMPRESSION: No acute intracranial hemorrhage. Dictator: Taye Pete DO 11/13/17 15:[address] Glover ~ 40min without reply 11/13/17 18:[address] Glover ~ 4:30pm - states agrees with ED mgt/txt, would like pt started on PredForte 1 drop t1ohrbo; cyclogel 1% 1 drop to right eye TID; and prednisone 20mg po TID; pt will be evaluated tomorrow by Dr Glover I spoke to fusion operator PCP, Dr Hirsch, made aware, agrees with ED mgt/txt/dx, agrees with admission pt states his pain is more tolerable pt is made aware of his medical results agrees with admission Re-evaluation Time: 15:23 Reassessment Condition: Improving,but remains with symptoms - Lab Interpretations Lab Results: 11/13/17 14:20 11/13/17 14:20 Lab Results 11/13/17 14:20: Sodium 142, Potassium 4.4, Chloride 104, Carbon Dioxide 27, Anion Gap 15, BUN 18, Creatinine 2.2 H, Est GFR ( Amer) 38, Est GFR (Non- Af Amer) 31, Random Glucose 92, Calcium 10.1, Total Bilirubin 0.4, AST 19, ALT 30, Alkaline Phosphatase 80, Total Protein 7.3, Albumin 4.0, Globulin 3.3, Albumin/Globulin Ratio 1.2 11/13/17 14:20: PT 10.9, INR 1.00, APTT 32.1 11/13/17 14:20: WBC 10.1, RBC 5.33, Hgb 16.0, Hct 45.7, MCV 85.7, MCH 30.0, MCHC 35.0, RDW 13.3, Plt Count 155, MPV 9.6, Gran % 76.8 H, Lymph % (Auto) 16.0 L, [place] % (Auto) 5.7, Eos % (Auto) 1.3 L, Baso % (Auto) 0.2, Gran # 7.76 H, Lymph # 1.6, [place] # 0.6, Eos # 0.1, Baso # 0.02, ESR 11 elevated CREAT I have reviewed the lab results: Yes Interpretation: Abnormal lab values - RAD Interpretation Radiology Orders: 11/13/17 13:19 ORBITS/ FACIALS W/O CONTRAST [CT] Stat 11/13/17 13:25 Brain [HEAD W/O CONTRAST] [CT] Stat PROCEDURE: CT HEAD WITHOUT CONTRAST. HISTORY: Right sided headache. Allergic reaction eye and face. COMPARISON: Lipoma Correlation also made with concurrent CT scan orbits. Comparison also made with prior CT scan of the brain 03/30/2015. TECHNIQUE: Axial computed tomography images were obtained through the head/brain without intravenous contrast. Radiation dose: Total exam DLP = 823.33 mGy-cm. This CT exam was performed using one or more of the following dose reduction techniques: Automated exposure control, adjustment of the mA and/or kV according to patient size, and/or use of iterative reconstruction technique. FINDINGS: HEMORRHAGE: No acute parenchymal, subarachnoid nor extra-axial hemorrhage. BRAIN: No obvious parenchymal nor extra-axial masses or collections seen on this noncontrast study. VENTRICLES: Unremarkable. No hydrocephalus. CALVARIUM: Unremarkable. PARANASAL SINUSES: Postoperative changes of the nasal cavity in the medial wall antrostomy defects and partial ethmoidectomy again noted. . There is there complete opacification right maxillary antrum and minor mucosal thickening within the residual ethmoid air cells and sphenoid sinus. MASTOID AIR CELLS: Unremarkable as visualized. No inflammatory changes. OTHER FINDINGS: Questionable mild left periorbital soft tissue swelling. Globes intact and lenses appropriately located. There are no retrobulbar hemorrhages or collections seen. IMPRESSION: No acute intracranial hemorrhage. HISTORY: Right orbital pain/teary eye; history of R eye/nose infection PROCEDURE: CT orbits dated 11/13/2017. COMPARISON: Correlation made with concurrent CT scan of the brain and prior CT scan brain TECHNIQUE: Contiguous helical/ transaxial l CT images of the orbits were obtained. Coronal and sagittal reformats were generated. Radiation dose: Total exam DLP = 489.95 MGy-cm. This CT exam was performed using one or more of the following dose reduction techniques: Automated exposure control, adjustment of the mA and/or kV according to patient size, and/or use of iterative reconstruction technique. FINDINGS: The current study re- demonstrates postsurgical changes of the nasal cavity and paranasal sinuses. . There has been resection of the middle turbinates and medial allen both maxillary antra. Partial ethmoidectomy also noted. Near complete opacification of the right maxillary antrum. There is mild mucosal thickening seen within multiple residual ethmoid air cells extending superiorly into the inferior margin of the frontal sinus. Minor mucosal thickening present within the sphenoid sinus. There appears to be an periorbital right periorbital infiltration and swelling with less on pronounced left periorbital of infiltration. Minimal on extension into the supraorbital and infraorbital soft tissues. Findings suggest the periorbital cellulitis. No evidence of postseptal extension. The globes intact and lenses appropriately located. There are no retrobulbar hemorrhages or collections. Optic nerves and extraocular musculature unremarkable. There is minor focal leftward deviation of the anterior margin of the nasal septum. Probable old fracture deformity right nasal bone IMPRESSION: Postoperative changes of the nasal cavity and paranasal sinuses as described. Subtotal opacification right maxillary antrum with mild mucosal thickening several residual ethmoid air cells extending superiorly into the inferior margin of the frontal sinus. There is also minor mucosal thickening in the sphenoid sinus. Mild to moderate right periorbital soft tissue swelling which extends slightly into the supraorbital and to a lesser degree infraorbital soft tissues. . Findings consistent with periorbital cellulitis. No evidence of postseptal extension. There appears to be some minor left periorbital soft tissue swelling as well. Lubricating Specialist: Radiologist - Medication Orders Current Medication Orders: Cyclopentolate HCl (Cyclogyl 1% Opht) 1 drop OD TID FINESSE Last Admin: 11/13/17 18:15 Dose: 1 drop Prednisolone Acetate (Pred Forte 1% Opht Susp) 1 ml OD Q2 FINESSE Discontinued Medications Ampicillin Sodium/Sulbactam (Sodium 3 gm/ Sodium Chloride) 100 mls @ 100 mls/ hr IVPB STAT STA PRN Reason: Protocol Stop: 11/13/17 16:18 Last Admin: 11/13/17 15:49 Dose: 100 mls/hr eMAR Start Stop Document 11/13/17 15:49 SRE (Rec: 11/13/17 15:51 SRE [id number]) Intravenous Solution Start Date 11/13/17 Start Time 15:51 End Date 11/13/17 End time 16:50 Total Infusion Time 59 Ibuprofen (Motrin Tab) 400 mg PO STAT STA Stop: 11/13/17 13:23 Last Admin: 11/13/17 13:29 Dose: 400 mg [facility] Pain/Vitals Document 11/13/17 13:29 SRE (Rec: 11/13/17 13:30 SRE [id number]) Pain Reassessment Is This A Pain ReAssessment? Yes Sleep Is patient sleeping during reassessment? No Presence of Pain Presence of Pain Yes Pain Scale Used Pain Scale Used Numeric Location Left, Right or Bilateral Right Pain Location Body Site Eye Description Constant Scale Used Numeric Re-Assess: [facility] Pain/Vitals Document 11/13/17 14:29 SRE (Rec: 01/01/18 15:31 SRE [id number]) Pain Reassessment Is This A Pain ReAssessment? Yes Sleep Is patient sleeping during reassessment? No Presence of Pain Presence of Pain Yes Pain Scale Used Pain Scale Used Numeric Location Left, Right or Bilateral Right Pain Location Body Site Eye Description Constant Oxycodone/Acetaminophen (Percocet 5/325 Mg Tab) 1 tab PO STAT STA Stop: 11/13/17 13:23 Last Admin: 11/13/17 13:31 Dose: 1 tab [facility] Pain Assessment Document 11/13/17 13:31 SRE (Rec: 11/13/17 13:31 SRE [id number]) Pain Reassessment Is this a pain reassessment? Yes Re-Assess: [facility] Pain Assessment Document 11/13/17 14:31 SRE (Rec: 11/13/17 15:31 SRE [id number]) Pain Reassessment Is this a pain reassessment? Yes Sleep Is patient sleeping during reassessment? No Presence of Pain Presence of Pain Yes Pain Scale Used Pain Scale Used Numeric Location Left, Right or Bilateral Right Pain Location Body Site Eye Description Description Constant Prednisone (Prednisone Tab) 20 mg PO STAT STA Stop: 11/13/17 16:38 Last Admin: 11/13/17 17:28 Dose: 20 mg Tetracaine HCl (Tetracaine 0.5% Ophth Soln) 3 drop OD STAT STA Stop: 11/13/17 13:22 Last Admin: 11/13/17 13:31 Dose: 1 bottle Disposition/Present on Arrival - Present on Arrival Any Indicators Present on Arrival: No History of DVT/PE: No History of Uncontrolled Diabetes: No Urinary Catheter: No History of Decub. Ulcer: No History Surgical Site Infection Following: None - Disposition Have Diagnosis and Disposition been Completed?: Yes Diagnosis: Pain, eye, right, Periorbital cellulitis of right eye, Chronic renal failure, Uveitis Disposition: HOSPITALIZED Disposition Time: 17:15 Patient Plan: Admission Condition: STABLE Discharge Instructions (ExitCare): Cellulitis (ED) Referrals: Jovanni Garrido MD [Primary Care Provider] - Follow up with primary Forms: MD [employer] (Kinyarwanda)
--- NOTE | 2017-11-13 14:23 | CT ---
PROCEDURE: CT HEAD WITHOUT CONTRAST. HISTORY: Right sided headache. Allergic reaction eye and face. COMPARISON: Lipoma Correlation also made with concurrent CT scan orbits. Comparison also made with prior CT scan of the brain 03/30/2015. TECHNIQUE: Axial computed tomography images were obtained through the head/brain without intravenous contrast. Radiation dose: Total exam DLP = 823.33 mGy-cm. This CT exam was performed using one or more of the following dose reduction techniques: Automated exposure control, adjustment of the mA and/or kV according to patient size, and/or use of iterative reconstruction technique. FINDINGS: HEMORRHAGE: No acute parenchymal, subarachnoid nor extra-axial hemorrhage. BRAIN: No obvious parenchymal nor extra-axial masses or collections seen on this noncontrast study. VENTRICLES: Unremarkable. No hydrocephalus. CALVARIUM: Unremarkable. PARANASAL SINUSES: Postoperative changes of the nasal cavity in the medial wall antrostomy defects and partial ethmoidectomy again noted. . There is there complete opacification right maxillary antrum and minor mucosal thickening within the residual ethmoid air cells and sphenoid sinus. MASTOID AIR CELLS: Unremarkable as visualized. No inflammatory changes. OTHER FINDINGS: Questionable mild left periorbital soft tissue swelling. Globes intact and lenses appropriately located. There are no retrobulbar hemorrhages or collections seen. IMPRESSION: No acute intracranial hemorrhage.
[2017-11-13 14:33] LABS: BASO # 0.02 K/mm3 (0.0-2.0); BASO % 0.2 % (0.0-3.0); EOS # 0.1 (0.0-0.7); EOS % 1.3 % (1.5-5.0); GRAN # 7.76 (1.4-6.5); GRAN % 76.8 % (50.0-68.0); LYMPH # 1.6 (1.2-3.4); MEAN CELL VOLUME 85.7 fl (80.0-105.0); MEAN PLATELET VOLUME 9.6 fl (7.0-11.0); MONO # 0.6 (0.1-0.6); MONO % 5.7 % (1.0-6.0); RBC 5.33 10^6/uL (3.5-6.1); RED CELL DISTRIBUTION WIDTH 13.3 % (11.5-14.5); WHITE BLOOD COUNT 10.1 10^3/ul (4.5-11.0)
[2017-11-13 14:44] LABS: ALB/GLOB RATIO 1.2 (1.1-1.8); CALCIUM 10.1 mg/dL (8.4-10.5)
[2017-11-13 14:49] LABS: PARTIAL THROMBOPLASTIN TIME 32.1 Seconds (25.1-36.5); PROTHROMBIN TIME 10.9 SECONDS (9.4-12.5)
--- NOTE | 2017-11-13 14:55 | CT ---
HISTORY: Right orbital pain/teary eye; history of R eye/nose infection PROCEDURE: CT orbits dated 11/13/2017. COMPARISON: Correlation made with concurrent CT scan of the brain and prior CT scan brain 03/30/2015 TECHNIQUE: Contiguous helical/ transaxial l CT images of the orbits were obtained. Coronal and sagittal reformats were generated. Radiation dose: Total exam DLP = 489.95 MGy-cm. This CT exam was performed using one or more of the following dose reduction techniques: Automated exposure control, adjustment of the mA and/or kV according to patient size, and/or use of iterative reconstruction technique. FINDINGS: The current study re- demonstrates postsurgical changes of the nasal cavity and paranasal sinuses. . There has been resection of the middle turbinates and medial allen both maxillary antra. Partial ethmoidectomy also noted. Near complete opacification of the right maxillary antrum. There is mild mucosal thickening seen within multiple residual ethmoid air cells extending superiorly into the inferior margin of the frontal sinus. Minor mucosal thickening present within the sphenoid sinus. There appears to be an periorbital right periorbital infiltration and swelling with less on pronounced left periorbital of infiltration. Minimal on extension into the supraorbital and infraorbital soft tissues. Findings suggest the periorbital cellulitis. No evidence of postseptal extension. The globes intact and lenses appropriately located. There are no retrobulbar hemorrhages or collections. Optic nerves and extraocular musculature unremarkable. There is minor focal leftward deviation of the anterior margin of the nasal septum. Probable old fracture deformity right nasal bone IMPRESSION: Postoperative changes of the nasal cavity and paranasal sinuses as described. Subtotal opacification right maxillary antrum with mild mucosal thickening several residual ethmoid air cells extending superiorly into the inferior margin of the frontal sinus. There is also minor mucosal thickening in the sphenoid sinus. Mild to moderate right periorbital soft tissue swelling which extends slightly into the supraorbital and to a lesser degree infraorbital soft tissues. . Findings consistent with periorbital cellulitis. No evidence of postseptal extension. There appears to be some minor left periorbital soft tissue swelling as well.
[2017-11-13] MEDS: CYCLOPENTOLATE 1% OD SCH (18:15)
[2017-11-13] MEDS: PrednisoLONE 1% Opht Susp(5 ml) OD SCH ×3 (18:32→22:18)
[2017-11-13] MEDS ORDERED: AMPicillin/Sulbactam 1.5gm 1 GM/100 ML BAG IVPB ONE (21:05)
[2017-11-13] MEDS ORDERED: Oxycodone/Acetaminophen 5/325 mg Tab PO PRN (21:10)
[2017-11-13] MEDS ORDERED: Influenza Vaccine 60 mcg/0.5 mL SYR (4YR UP) IM ONE (22:36)
[2017-11-13] MEDS ORDERED: Pneumococcal 23-Valent Vaccine IM ONE (22:36)
[2017-11-13] MEDS: Piperacillin/Tazobact 3.375 gm 100 ML IVPB SCH (23:16)
[2017-11-14] MEDS: PrednisoLONE 1% Opht Susp(5 ml) OD SCH ×12 (02:34→21:56)
[2017-11-14] MEDS: Piperacillin/Tazobact 3.375 gm 100 ML IVPB SCH (06:12)
--- NOTE | 2017-11-14 09:52 | CON ---
DATE: HISTORY OF PRESENT ILLNESS: Mr. Cristobal was asked to be seen by me for uveitis in his right eye. He said uveitis in his right eye several times. I put him on Pred Forte one drop in the right eye every 2 hours last night and prednisone 20 mg three times a day orally. Today, he feels much, much better and can see much better. PHYSICAL EXAMINATION: The eye is slightly injected to the right eye. The anterior chamber shows 2+ flare and cells. The corneas exam is normal. The lens exam shows some peripheral anterior synechiae. The retina exam is normal. ASSESSMENT: Mr. Cristobal has chronic uveitis, which can be seen by me after discharge. Ke Glover MD
[2017-11-14] MEDS: CYCLOPENTOLATE 1% OD SCH ×3 (10:38→17:29)
--- NOTE | 2017-11-14 12:22 | CP.PCM.CON ---
<Shawn Haddad - Last Filed: 11/14/17 12:32> History of Present Illness - History of Present Illness History of Present Illness: Infectious disease consultation Attending: This is a 57 yo male with past medical hx of IGG nephritis, chronic uveitis, HTN , renal cell carcinoma, presenting with chief complaint of right eye pain and irritation x 2 days. Pt previously had similar issue in left eye 1 year ago with dx of uveitis. Pt was given steroid eye drops by Dr. Glover. Pt used some remaining drops in right eye before coming into ER. Denies fevers, chills. Reports headache. Denies drainage of pus. Denies recent travel and sick contacts. Reports chronic rhinorrhea but denies sinus tenderness. PMH: RCC, s/p chemotherapy, IGG nephritis, chronic uveitis, HTN PSH: foot surgery Allergies: NKDA FH: DM, lung cancer in family Home meds: percocet, xanax, steroid eye drops, lisinopril Social: denies smoking. social drinker. denies drug use. Review of Systems - Review of Systems All systems: reviewed and no additional remarkable complaints except Review of Systems: negative except as stated in HPI Past Patient History - Infectious Disease Hx of Infectious Diseases: None - Tetanus Immunizations Tetanus Immunization: Unknown - Past Medical History & Family History Past Medical History?: Yes Past Family History: Reviewed and not pertinent - Past Social History Smoking Status: Never Smoked Chewing Tobacco Use: No Cigar Use: No Alcohol: Social Drugs: Denies Home Situation {Lives}: Alone Domestic Violence: Negative - CARDIAC Hx Cardiac Disorders: No Hx Hypertension: Yes - PULMONARY Hx Bronchitis: Yes - NEUROLOGICAL Hx Dizziness: Yes Hx Migraine: Yes - HEENT Hx HEENT Problems: Yes (CELLULITIS TO LEFT EYE) Other/Comment: sx for deviated septum 4 yrs ago, c/o of having 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 after having deviated septum sx, has had for last 2 yrs recurrent migranes and uvitis, c/o photophobia, blurred vision r eye - RENAL Hx Chronic Kidney Disease: Yes (RENAL INSUFFICIENCY) Hx Dialysis: No Other/Comment: kidney problem, 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 - ENDOCRINE/METABOLIC Hx Endocrine Disorders: No - HEMATOLOGICAL/ONCOLOGICAL Hx Blood Disorders: No (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[employer].) - INTEGUMENTARY Hx Dermatological Problems: (CELLULITIS TO L EYE 06-26-14,TATTOOS) Other/Comment: multiple tatoos - MUSCULOSKELETAL/RHEUMATOLOGICAL Hx Falls: No - GASTROINTESTINAL Hx Gastrointestinal Disorders: No Other/Comment: colonoscopy - GENITOURINARY/GYNECOLOGICAL Hx Genitourinary Disorders: Yes Hx Prostate Problems: (pt denies prostate problems) - PSYCHIATRIC Hx Substance Use: No - SURGICAL HISTORY Other/Comment: deviated septum 2014 left ft sx 1975 - ANESTHESIA Hx Anesthesia: Yes Hx Anesthesia Reactions: No Hx Malignant Hyperthermia: No Meds Allergies/Adverse Reactions: Allergies Allergy/AdvReac Type Severity Reaction Status Date / Time No Known Allergies Allergy Verified 02/26/17 23:20 - Medications Medications: Current Medications Alprazolam (Xanax) 1 mg PO TID PRN; Protocol PRN Reason: Anxiety Last Admin: 11/13/17 22:59 Dose: 1 mg Cyclopentolate HCl (Cyclogyl 1% Opht) 1 drop OD TID [facility] Last Admin: 11/14/17 10:38 Dose: 1 drop Ampicillin Sodium/Sulbactam (Sodium 3 gm/ Sodium Chloride) 100 mls @ 200 mls/ hr IVPB Q6 [facility] PRN Reason: Protocol Lisinopril (Zestril) 10 mg PO DAILY [facility] Last Admin: 11/14/17 10:36 Dose: 10 mg Oxycodone/Acetaminophen (Percocet 5/325 Mg Tab) 1 tab PO Q4H PRN PRN Reason: Pain, moderate (4-7) Stop: 11/16/17 21:11 Prednisolone Acetate (Pred Forte 1% Opht Susp) 1 ml OD Q2 [facility] Last Admin: 11/14/17 10:37 Dose: 1 drop Prednisone (Prednisone Tab) 20 mg PO TID [facility] Last Admin: 11/14/17 10:36 Dose: 20 mg Physical Exam - Constitutional Appears: No Acute Distress - Head Exam Head Exam: ATRAUMATIC, NORMOCEPHALIC - Eye Exam Eye Exam: Conjunctival injection, Periorbital swelling. absent: Periorbital tenderness Additional comments: mild injection and mild periorbital swelling - ENT Exam ENT Exam: Mucous Membranes Moist - Neck Exam Neck exam: Positive for: Normal Inspection - Respiratory Exam Respiratory Exam: Clear to Auscultation Bilateral - Cardiovascular Exam Cardiovascular Exam: REGULAR RHYTHM - GI/Abdominal Exam GI & Abdominal Exam: Normal Bowel Sounds, Soft - Extremities Exam Extremities exam: Positive for: full ROM, normal inspection - Neurological Exam Neurological exam: Alert, Oriented x3 - Psychiatric Exam Psychiatric exam: Normal Affect, Normal Mood - Skin Skin Exam: Dry, Intact, Normal Color, Warm Results - Vital Signs Recent Vital Signs: Last Vital Signs Temp 97.3 F L 11/14/17 07:00 Pulse 60 11/14/17 10:36 Resp 18 11/14/17 07:00 BP 161/99 H 11/14/17 10:36 Pulse Ox 95 11/14/17 07:00 - Labs Result Diagrams: 11/13/17 14:20 11/13/17 14:20 Assessment & Plan - Assessment and Plan (Free Text) Assessment: This is a 57 yo male with past medical hx of IGG nephritis, chronic uveitis, HTN presenting with eye pain and irritation/swelling x 2 days. 1. Preseptal cellulitis -orbit CT is suspicious for preseptal cellulitis -given IV zosyn in ER yesterday, empirically started on unasyn -continue IV unasyn 3 g q 6 hrs -clinically improving -steroid eye drops per ophtho -will discharge on PO antibiotics if clinical picture continues to improve discussed with Dr. Hargrove. <Raúl Hargrove - Last Filed: 11/14/17 17:54> Meds - Medications Medications: Current Medications Alprazolam (Xanax) 1 mg PO TID PRN; Protocol PRN Reason: Anxiety Last Admin: 11/13/17 22:59 Dose: 1 mg Cyclopentolate HCl (Cyclogyl 1% Opht) 1 drop OD TID [facility] Last Admin: 11/14/17 17:29 Dose: 1 drop Ampicillin Sodium/Sulbactam (Sodium 3 gm/ Sodium Chloride) 100 mls @ 200 mls/ hr IVPB Q6 [facility] PRN Reason: Protocol Last Admin: 11/14/17 17:28 Dose: 200 mls/hr Lisinopril (Zestril) 10 mg PO DAILY [facility] Last Admin: 11/14/17 10:36 Dose: 10 mg Oxycodone/Acetaminophen (Percocet 5/325 Mg Tab) 1 tab PO Q4H PRN PRN Reason: Pain, moderate (4-7) Stop: 11/16/17 21:11 Prednisolone Acetate (Pred Forte 1% Opht Susp) 1 ml OD Q2 [facility] Last Admin: 11/14/17 17:29 Dose: 1 drop Prednisone (Prednisone Tab) 20 mg PO TID [facility] Last Admin: 11/14/17 17:28 Dose: 20 mg Results - Vital Signs Recent Vital Signs: Last Vital Signs Temp 98.4 F 11/14/17 16:02 Pulse 78 11/14/17 16:02 Resp 18 11/14/17 16:02 BP 143/93 H 11/14/17 16:02 Pulse Ox 97 11/14/17 16:02 - Labs Result Diagrams: 11/13/17 14:20 11/13/17 14:20 Assessment & Plan - Assessment and Plan (Free Text) Assessment: Infectious Diseases Attending Attestation Patient seen and examined and discussed with back office medical assistant. I have reviewed the history of present illness, past medical, social, personal, family histories , as well as physical exam, laboratories and imaging studies, assessment and plan of the back office medical assistant. I agree with the above findings, assessment. In addition, patient has right sided facial preseptal cellulitis. Cannot rule out sinus infection as etiology. Patient clinically improving on Unasyn - will continue this antibiotic and discussed with Dr. Hirsch about ENT evaluation. Will monitor clinically.
[2017-11-14] MEDS: Fluticasone Nasal 50 mcg/Spray NS SCH (18:47)
[2017-11-14] MEDS: MethylPREDNISolone 40 mg Vial IV SCH (21:55)
[2017-11-15] MEDS: PrednisoLONE 1% Opht Susp(5 ml) OD SCH ×7 (00:06→12:32)
--- NOTE | 2017-11-15 01:22 | HP ---
HISTORY OF PRESENT ILLNESS: Mr. Cristobal is a 57-year-old male, admitted to the hospital with 1-day swelling of the right eye and decrease in vision. He has chronic uveitis. He has been on prednisone at home. He stopped taking prednisone for the past few days. He had similar symptoms a year ago when he was diagnosed with uveitis. There is a slight discharge from the right eye. CT head did not show any acute changes. CAT scan of the right orbit showed orbital cellulitis. PAST MEDICAL HISTORY: Chronic uveitis, renal insufficiency, IgA nephropathy. SURGICAL HISTORY: Deviated septum surgery. PERSONAL HISTORY: Never smoked. No history of alcohol abuse. FAMILY HISTORY: Noncontributory. ALLERGIES: NO KNOWN DRUG ALLERGIES. HOME MEDICATIONS: Prednisone. REVIEW OF SYSTEMS: As per HPI. Rest of 12-point review of systems reviewed and negative. PHYSICAL EXAMINATION: GENERAL: Comfortable in bed, in no acute distress. VITAL SIGNS: Temperature 98.7, heart rate is 70 per minute, blood pressure 140/90, pulse oximetry is 98% on room air, respiratory rate 18 per minute. HEENT: Swelling around the right eye markedly decreased. Slight congestion of the conjunctiva. No discharge from the eye. NECK: No lymphadenopathy. CHEST: Air entry present and equal bilateral. No added sounds. CARDIOVASCULAR: S1 and S2 normal. No murmurs, no gallops. ABDOMEN: Soft, nontender. No hepatosplenomegaly. EXTREMITIES: No edema. ASSET COORDINATOR: Alert and oriented x3. No focal sensory or motor deficit. PSYCH: Alert and oriented x3. No cranial nerve palsy. SKIN: No petechiae. No rash. LABORATORY DATA: White count 10.1, hemoglobin 16, hematocrit 45.7, platelets 155. Sodium 142, potassium 4.4, BUN 18, creatinine 2.2, glucose 92. CAT scan of the head and orbital CAT scan as per HPI. ASSESSMENT AND PLAN: He will be admitted to the hospital, ID consultation with Dr. De La Garza requested. IV antibiotics, Zosyn given in the ER. Zosyn was discontinued and Augmentin started by ID q.6 hours IV. He was given Solu-Medrol. We will wean the Solu-Medrol quickly, lisinopril 20 mg daily, Xanax 1 mg p.o. t.i.d. p.r.n. We will continue to monitor clinically. Ophthalmology consultation with Dr. Glover requested. Notes reviewed. Padmini Mckinney MD
--- NOTE | 2017-11-15 02:32 | HP ---
HISTORY OF PRESENT ILLNESS: The is a 57-year-old, patient of Dr. Benton who has been suffering from uveitis for almost 5 years. He has been on prednisone and lately Dr. Benton was trying to taper him down. He states currently he was on 10 mg and 2 weeks ago, he stopped his prednisone and for the last few days, he started to have pain, itching, heaviness, and blurry vision from the right eye. He has been using the eye drops that was given by Dr. Glover, but yesterday, his pain and discomfort got worse, so he came to Emergency Room for further evaluation with complaint of nasal stuffiness, complaint of severe headache, but no fever or chills. PAST MEDICAL HISTORY: Significant for: 1. IgA nephropathy. 2. He has tubulointerstitial nephritis. 3. Uveitis. 4. History of sinusitis. 5. Borderline hypertension. SOCIAL HISTORY: He does smoke. 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 Currently, he is retired and he stays at home. MEDICATIONS AT HOME: The patient is on Percocet, lisinopril 10 mg daily, and Xanax 1 mg three times a day. REVIEW OF SYSTEMS: Complain of having foggy vision from the right eye and feels like there is a snow in front of his visual field. He does complain of slight headache and light bothers him. PHYSICAL EXAMINATION: VITAL SIGNS: He is afebrile, pulse 78, respirations 18, and blood pressure 143/93. HEAD AND NECK: He has conjunctival redness with watery tears. His pupil is slow to react to light. LUNGS: Bilateral fair airflow. No rhonchi or crackle. HEART: S1 and S2 audible. ABDOMEN: Soft and nontender. No rebound. No guarding. NEUROLOGIC: The patient is awake, alert, oriented, and communicative. LABORATORY DATA: WBC is 10.1, hemoglobin 16, hematocrit 45, and platelets 155. PT 10.9 and INR 1.00. Chemistry: Sodium 142, potassium 4.4, chloride 104, CO2 of 27, BUN 18, creatinine 2.2, and blood sugar of 92. C-reactive protein is 9.46. CT scan of the head done that is negative. CT scan of the orbit shows postop changes in the nasal cavity and paranasal sinuses, right maxillary antrum is specified and residual ethmoid air cell extending into inferior margin of the frontal sinus with mucosal thickening. ASSESSMENT: 1. Right eye uveitis. 2. Maxillary and ethmoid sinusitis. 3. Hypertension 4. Immunoglobulin A nephropathy. PLAN: Currently, the patient is on multiple eye drops as recommended by card cutter. We will give him analgesic as needed. He is on prednisone 20 mg three times a day. We will continue him on Unasyn as recommended by ID. We will resume his lisinopril and Xanax. I will start him on Flonase. Dr. Benton will follow up the patient in a.m. Dirk Hirsch MD
[2017-11-15 03:23] VITALS: RESP 20; O2SAT 94
[2017-11-15 07:53] VITALS: BP 140/80; PULSE 74; TEMP 97.8
[2017-11-15] MEDS: CYCLOPENTOLATE 1% OD SCH (09:05)
[2017-11-15] MEDS: MethylPREDNISolone 40 mg Vial IV SCH (09:05)
[2017-11-15] MEDS: Fluticasone Nasal 50 mcg/Spray NS SCH (09:05)
--- NOTE | 2017-11-15 10:26 | PN ---
DATE: 11/15/2017 SUBJECTIVE: The patient has no complaints of any chest pain. No shortness of breath. No headaches. PHYSICAL EXAMINATION: VITAL SIGNS: Temperature is 97.5, pulse of 65, blood pressure 145/84, and respirations 20. GENERAL: The patient is lying in bed, flat, comfortable. HEENT: No oral lesion. Anicteric sclerae. Moist mucosa. NECK: No JVD, adenopathy, or thyromegaly. CARDIOVASCULAR: S1 and S2, regular. No murmurs, rubs, or gallops. LUNGS: Clear to auscultation bilaterally. No wheeze, rales, or rhonchi. ABDOMEN: Bowel sounds are positive, soft, nontender and nondistended. EXTREMITIES: No cyanosis, clubbing or edema. right periorbital cellulitis, improving. ASSESSMENT: 1. Right eye uveitis. 2. IgG4-associated tubulointerstitial nephritis. 3. Chronic kidney disease, stage III. PLAN: The patient is currently comfortable. His creatinine is stable at 3.2. He has IgG4 tubulointerstitial nephritis. The patient also has uveitis. The patient is on eye drops. He is also on Solu-Medrol. The patient is on Xanax daily. She is on heart-healthy diet. The patient is on Xanax as needed. He is feeling better. Jeovany Benton MD
--- NOTE | 2017-11-15 12:45 | CP.PCM.PN ---
<Shawn Haddad - Last Filed: 11/15/17 12:46> Subjective - Date & Time of Evaluation Date of Evaluation: 11/15/17 Time of Evaluation: 12:45 - Subjective Subjective: Infectious disease progress note. Attending: Dr. Hargrove Pt seen and examined at bedside. No acute distress. No events overnight. Swelling improved around pt's right eye. Pt has been afebrile and pt feels much better. Will be discharged home on augmentin. Objective - Vital Signs/Intake and Output Vital Signs (last 24 hours): Temp Pulse Resp BP Pulse Ox 97.8 F 74 20 140/80 94 L 11/15/17 07:30 11/15/17 09:05 11/15/17 07:30 11/15/17 09:05 11/15/17 07:30 Intake and Output: 11/15/17 11/15/17 06:59 18:59 Intake Total 1080 Balance 1080 - Medications Medications: Current Medications Alprazolam (Xanax) 1 mg PO TID PRN; Protocol PRN Reason: Anxiety Last Admin: 11/13/17 22:59 Dose: 1 mg Cyclopentolate HCl (Cyclogyl 1% Opht) 1 drop OD TID [facility] Last Admin: 11/15/17 09:05 Dose: 1 drop Fluticasone Propionate (Flonase) 1 actuation NS DAILY [facility] Last Admin: 11/15/17 09:05 Dose: 1 spr Ampicillin Sodium/Sulbactam (Sodium 3 gm/ Sodium Chloride) 100 mls @ 200 mls/ hr IVPB Q6 [facility] PRN Reason: Protocol Last Admin: 11/15/17 12:32 Dose: Not Given Lisinopril (Zestril) 10 mg PO DAILY [facility] Last Admin: 11/15/17 09:05 Dose: 10 mg Methylprednisolone (Solu-Medrol) 40 mg IV Q12 [facility] Last Admin: 11/15/17 09:05 Dose: 40 mg Oxycodone/Acetaminophen (Percocet 5/325 Mg Tab) 1 tab PO Q4H PRN PRN Reason: Pain, moderate (4-7) Stop: 11/16/17 21:11 Prednisolone Acetate (Pred Forte 1% Opht Susp) 1 ml OD Q2 [facility] Last Admin: 11/15/17 12:32 Dose: Not Given - Labs Labs: PT 10.9 SECONDS (9.4-12.5) 11/13/17 14:20 INR 1.00 (0.93-1.08) 11/13/17 14:20 APTT 32.1 Seconds (25.1-36.5) 11/13/17 14:20 - Constitutional Appears: Non-toxic, No Acute Distress - Head Exam Head Exam: ATRAUMATIC, NORMAL INSPECTION, NORMOCEPHALIC - Eye Exam Eye Exam: absent: Periorbital tenderness, Scleral icterus Additional comments: markedly improved swelling and injection - ENT Exam ENT Exam: Mucous Membranes Moist - Neck Exam Neck Exam: Normal Inspection - Respiratory Exam Respiratory Exam: NORMAL BREATHING PATTERN. absent: Respiratory Distress - Cardiovascular Exam Cardiovascular Exam: +S1, +S2 - GI/Abdominal Exam GI & Abdominal Exam: Soft, Normal Bowel Sounds. absent: Tenderness - Extremities Exam Extremities Exam: Full ROM, Normal Inspection - Neurological Exam Neurological Exam: Alert, Awake - Psychiatric Exam Psychiatric exam: Normal Affect, Normal Mood - Skin Skin Exam: Dry, Intact, Normal Color, Warm Assessment and Plan - Assessment and Plan (Free Text) Assessment: This is a 57 yo male with past medical hx of IGG nephritis, chronic uveitis, HTN presenting with eye pain and irritation/swelling x 2 days. 1. Preseptal cellulitis -orbit CT is suspicious for preseptal cellulitis -given IV zosyn in ER initially, empirically started on unasyn -patient treated in hospital on IV unasyn -clinically improving -steroid eye drops per ophtho, -recommendation for discharge on PO augmentin 875 mg/125 mg BID x [address] Hargrove. <Raúl Hargrove - Last Filed: 11/15/17 15:02> Objective - Vital Signs/Intake and Output Vital Signs (last 24 hours): Temp Pulse Resp BP Pulse Ox 97.8 F 74 20 140/80 94 L 11/15/17 07:30 11/15/17 09:05 11/15/17 07:30 11/15/17 09:05 11/15/17 07:30 Intake and Output: 11/15/17 11/15/17 06:59 18:59 Intake Total 1080 Balance 1080 - Labs Labs: PT 10.9 SECONDS (9.4-12.5) 11/13/17 14:20 INR 1.00 (0.93-1.08) 11/13/17 14:20 APTT 32.1 Seconds (25.1-36.5) 11/13/17 14:20 Assessment and Plan - Assessment and Plan (Free Text) Assessment: Infectious Diseases Attending Physician Attestation Patient seen and examined, discussed with medical claims processor. I agree with the above findings, assessment and plan. In addition, patient should follow up PMD to monitor resolution of the right sided facial preseptal cellulitis.
== END 2017-11-15 14:32 | disposition home or self-care (01) | DRG 603 ==
LOC: ED 12:59 → ERH 17:50 → 5RNO 19:20
PROVIDERS: ADMIT Internal Medicine; ATTEND Internal Medicine Nephrology
DX: L03.213 Periorbital cellulitis (principal); N18.3 Chronic kidney disease, stage 3 (moderate); N12 Tubulo-interstitial nephritis, not specified as acute or chronic; H20.9 Unspecified iridocyclitis; J32.0 Chronic maxillary sinusitis; J32.2 Chronic ethmoidal sinusitis; I12.9 Hypertensive chronic kidney disease with stage 1 through stage 4 chronic kidney disease, or unspecified chronic kidney disease; F17.210 Nicotine dependence, cigarettes, uncomplicated; Z92.21 Personal history of antineoplastic chemotherapy; Z80.1 Family history of malignant neoplasm of trachea, bronchus and lung; Z83.3 Family history of diabetes mellitus

== ENCOUNTER 2017-12-20 03:22 | Inpatient (IN) | payer MEDICARE, OTHER ==
--- NOTE | 2017-12-20 03:44 | ED PDOC ---
Arrival/HPI - General Chief Complaint: Abdominal Pain Time Seen by Provider: 12/20/17 03:35 Historian: Patient - History of Present Illness Narrative History of Present Illness (Text): 12/20/17 03:43 Taye Cristobal is a 57 year old male, whose past medical history includes renal insufficiency, hypertension, and bronchitis, who presents to the Emergency department with right flank pain since yesterday. Patient reports associated vomiting. Patient denies any fever, chills, chest pain, shortness of breath, diarrhea, urinary symptoms, neck pain, headache, dizziness, or any other complaints. Time/Duration: 24 hours Symptom Onset: Sudden Symptom Course: Unchanged Activities at Onset: Light Context: Home Past Medical History - Provider Review Nursing Documentation Reviewed: Yes - Past History Past History: No Previous - Infectious Disease Hx of Infectious Diseases: None - Tetanus Immunization Tetanus Immunization: Unknown - Reproductive Currently Lactating: No - Cardiac Hx Cardiac Disorders: No Hx Hypertension: Yes - Pulmonary Hx Bronchitis: Yes - Neurological Hx Dizziness: Yes Hx Migraine: Yes - HEENT Hx HEENT Disorder: Yes (CELLULITIS TO LEFT EYE) Other/Comment: sx for deviated septum 4 yrs ago, c/o of having 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 after having deviated septum sx, has had for last 2 yrs recurrent migranes and uvitis, c/o photophobia, blurred vision r eye - Renal Hx Renal Disorder: Yes (RENAL INSUFFICIENCY) Hx Dialysis: No Other/Comment: kidney problem, 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 - Endocrine/Metabolic Hx Endocrine Disorders: No - Hematological/Oncological Hx Blood Disorders: No (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ALT.) - Integumentary Hx Dermatological Disorder: (CELLULITIS TO L EYE 06-26-14,TATTOOS) Other/Comment: multiple tatoos - Musculoskeletal/Rheumatological Hx Falls: No - Gastrointestinal Hx Gastrointestinal Disorders: No Other/Comment: colonoscopy - Genitourinary/Gynecological Hx Genitourinary Disorders: Yes Hx Prostate Problems: (pt denies prostate problems) - Psychiatric Hx Psychophysiologic Disorder: No (OCCASIONAL BEERS) Hx Substance Use: No Other/Comment: in last 5 years lost his his job and his house - Surgical History Other/Comment: deviated septum 2014 left ft sx 1975 - Anesthesia Hx Anesthesia: Yes Hx Anesthesia Reactions: No Hx Malignant Hyperthermia: No - Suicidal Assessment Feels Threatened In Home Enviroment: No Family/Social History - Physician Review Nursing Documentation Reviewed: Yes Family/Social History: Unknown Family HX Smoking Status: Never Smoked Hx Alcohol Use: Yes (occasional beer) Hx Substance Use: No Hx Substance Use Treatment: No Allergies/Home Meds Allergies/Adverse Reactions: Allergies No Known Allergies Allergy (Verified 02/26/17 23:20) Home Medications: Home Meds Medication Instructions Recorded Confirmed Lisinopril [Zestril] 10 mg PO DAILY 12/20/17 12/20/17 Prednisone [Charles] 5 mg PO .5XDAY 12/20/17 12/20/17 oxyCODONE/Acetaminophen [Percocet 1 tab PO DAILY 12/20/17 12/20/17 5/325 mg Tab] Review of Systems - Physician Review All systems were reviewed & negative as marked: Yes - Review of Systems Constitutional: Normal Eyes: Normal ENT: Normal Respiratory: Normal. absent: SOB, Cough Cardiovascular: Normal. absent: Chest Pain Gastrointestinal: Vomiting. absent: Diarrhea, Nausea Genitourinary Male: Normal. absent: Dysuria, Frequency, Hematuria, Urinary Output Changes Musculoskeletal: Back Pain (+right flank pain). absent: Neck Pain Skin: Normal. absent: Rash Endocrine: Normal. absent: Diaphoresis, Polyuria, Polydipsia Hemo/Lymphatic: Normal Psychiatric: Normal Physical Exam Vital Signs Reviewed: Yes Vital Signs Temp Pulse Resp BP Pulse Ox 12/20/17 08:30 98.1 F 54 L 16 166/84 H 98 12/20/17 07:30 66 18 155/80 H 98 12/20/17 05:23 98.5 F 78 16 160/73 H 99 12/20/17 03:35 98 F 61 18 179/81 H 98 Temperature: Afebrile Blood Pressure: Hypertensive Pulse: Regular Respiratory Rate: Normal Appearance: Positive for: Well-Appearing, Non-Toxic, Comfortable Pain Distress: None Mental Status: Positive for: Alert and Oriented X 3 - Systems Exam Head: Present: Atraumatic, Normocephalic Pupils: Present: PERRL Extroacular Muscles: Present: EOMI Conjunctiva: Present: Normal Mouth: Present: Moist Mucous Membranes Neck: Present: Normal Range of Motion Respiratory/Chest: Present: Clear to Auscultation, Good Air Exchange. No: Respiratory Distress, Accessory Muscle Use Cardiovascular: Present: Regular Rate and Rhythm, Normal S1, S2. No: Murmurs Abdomen: No: Tenderness, Distention, Peritoneal Signs Back: Present: Other (mild right flank tenderness). No: Midline Tenderness Upper Extremity: Present: Normal Inspection. No: Cyanosis, Edema Lower Extremity: Present: Normal Inspection. No: Edema Neurological: Present: GCS=15, CN II-XII Intact, Speech Normal Skin: Present: Warm, Dry, Normal Color. No: Rashes Psychiatric: Present: Alert, Oriented x 3, Normal Insight, Normal Concentration Medical Decision Making ED Course and Treatment: 12/20/17 03:35 Impression: 57 year old male presents to the Emergency department with right flank pain. Plan: -- CT Abdomen and Pelvis -- Labs, lipase -- Urinalysis -- Reassess and disposition Prior Visits: Notes and results from previous visits were reviewed. Patient was last seen in the emergency department on 11/13/17 for uveitis. Progress Notes: 12/21/17 07:[address] valles, request dr srikanth duron and surgical eval accepted by dr duke bedside - Lab Interpretations Microbiology Results: Microbiology Results 12/20/17 07:20 Blood Blood Culture - Preliminary NO GROWTH AFTER 24 HOURS Lab Results: 12/20/17 03:45 12/20/17 03:45 Lab Results 12/20/17 06:35: Urine Color Light yellow, Urine Appearance Clear, Urine pH 6.0, Ur Specific [place] 1.015, Urine Protein 100 H, Urine Glucose (UA) Negative, Urine Ketones Negative, Urine Blood Negative, Urine Nitrate Negative, Urine Bilirubin Negative, Urine Urobilinogen 0.2, Ur Leukocyte Esterase Negative, Urine RBC 0 - 2, Urine WBC 0 - 2, Ur Epithelial Cells 0 - 2 12/20/17 03:45: Sodium 141, Potassium 4.4, Chloride 105, Carbon Dioxide 25, Anion Gap 15, BUN 34 H, Creatinine 3.2 H, Est GFR ( Amer) 25, Est GFR ( Non-Af Amer) 20, Random Glucose 124 H, Calcium 9.4, Total Bilirubin 0.3, AST 24 , ALT 32, Alkaline Phosphatase 58, Total Protein 6.7, Albumin 3.8, Globulin 2.9 , Albumin/Globulin Ratio 1.3, Lipase 354 H 12/20/17 03:45: PT 11.1, INR 0.97, APTT 30.7 12/20/17 03:45: WBC 7.1 D, RBC 4.98, Hgb 14.5, Hct 42.7, MCV 85.7, MCH 29.1, MCHC 34.0, RDW 13.5, Plt Count 149, MPV 9.3, Gran % 71.8 H, Lymph % (Auto) 18.8 L, [place] % (Auto) 7.6 H, Eos % (Auto) 1.7, Baso % (Auto) 0.1, Gran # 5.07, Lymph # (Auto) 1.3, [place] # (Auto) 0.5, Eos # (Auto) 0.1, Baso # (Auto) 0.01 I have reviewed the lab results: Yes - RAD Interpretation Radiology Orders: 12/20/17 04:22 ABD & PELVIS W/O PO OR IV CONT [CT] Stat - Medication Orders Current Medication Orders: Acetaminophen (Tylenol 325mg Tab) 650 mg PO Q6H PRN PRN Reason: Fever >100.4 F Amlodipine Besylate (Norvasc) 10 mg PO DAILY [facility] Enoxaparin Sodium (Lovenox) 30 mg SC DAILY [facility] PRN Reason: Protocol Last Admin: 12/20/17 10:47 Dose: 30 mg Subcutaneous Administrations Document 12/20/17 10:47 Olvin (Rec: 12/20/17 10:48 [id number]) Injection Site MAR Injection Site Left Abdomen Charges for Administration # of Subcutaneous Administrations 1 Sodium Chloride (Sodium Chloride 0.9%) 1,000 mls @ 100 mls/hr IV .Q10H [facility] Last Admin: 12/21/17 06:06 Dose: Lisinopril (Zestril) 10 mg PO DAILY [facility] Last Admin: 12/20/17 15:06 Dose: 10 mg MAR Pulse and Blood Pressure Document 12/20/17 15:06 ANA ROSA (Rec: 12/20/17 15:06 [id number]) Pulse Pulse Rate (60-90) 63 Blood Pressure Blood Pressure (100/60-150/90) 168/88 Morphine Sulfate (Morphine) 2 mg IVP Q4H PRN PRN Reason: Pain, moderate (4-7) Last Admin: 12/20/17 19:48 Dose: 2 mg MAR Pain Assessment Document 12/20/17 19:48 MB (Rec: 12/20/17 19:48 MB [id number][place] Pain Reassessment Is this a pain reassessment? No Sleep Is patient sleeping during reassessment? No Presence of Pain Presence of Pain Yes Pain Scale Used Pain Scale Used Numeric Location Left, Right or Bilateral Right Upper or Lower Lower Pain Location Body Site Abdomen Back Description Intensity of Pain at present 8 IVP Administration Document 12/20/17 19:48 MB (Rec: 12/20/17 19:48 MB [id number]) Charges for Administration # of IVP Administrations 1 Re-Assess: [facility] Pain Assessment Document 12/20/17 20:48 MB (Rec: 12/20/17 21:35 MB [id number]) Pain Reassessment Is this a pain reassessment? Yes Sleep Is patient sleeping during reassessment? Yes Morphine Sulfate (Morphine) 4 mg IVP Q4H PRN PRN Reason: Pain, severe (8-10) Ondansetron HCl (Zofran Inj) 4 mg IVP Q6H PRN PRN Reason: Nausea/Vomiting Discontinued Medications Acetaminophen (Tylenol 325mg Tab) 650 mg PO STAT STA Stop: 12/20/17 06:14 Last Admin: 12/20/17 06:31 Dose: 650 mg [facility] Pain/Vitals Document 12/20/17 06:31 AB (Rec: 12/20/17 06:31 AB [id number]) Pain Reassessment Is This A Pain ReAssessment? Yes Sleep Is patient sleeping during reassessment? No Presence of Pain Presence of Pain Yes Pain Scale Used Pain Scale Used Numeric Location Pain Location Body Site Back Enoxaparin Sodium (Lovenox) 30 mg SC DAILY [facility] PRN Reason: Protocol Piperacillin Sod/Tazobactam Sod (Zosyn 3.375 In Ns 100ml) 100 mls @ 200 mls/hr IVPB STAT STA PRN Reason: Protocol Stop: 12/20/17 07:54 Last Admin: 12/20/17 07:50 Dose: 200 mls/hr eMAR Start Stop Document 12/20/17 07:50 STEVE (Rec: 12/20/17 07:58 STEVE [id number]) Intravenous Solution Start Date 12/20/17 Start Time 07:50 End Date 12/20/17 End time 08:30 Total Infusion Time 40 Ciprofloxacin (Cipro 400mg/200ml Dsw) 400 mg in 200 mls @ 133.3 mls/hr IVPB Q12 [facility] PRN Reason: Protocol Stop: 12/20/17 23:31 Last Admin: 12/20/17 21:40 Dose: 133.3 mls/hr eMAR Start Stop Document 12/20/17 21:40 MB (Rec: 12/20/17 21:40 MB [id number]) Intravenous Solution Start Date 12/20/17 Start Time 21:40 Ondansetron HCl (Zofran Inj) 4 mg IVP Q6H [facility] Last Admin: 12/20/17 10:48 Dose: - Scribe Statement The provider has reviewed the documentation as recorded by the Rosalva Holbrook training under Brittany Wallace All medical record entries made by the Ritaibreymundo were at my direction and personally dictated by me. I have reviewed the chart and agree that the record accurately reflects my personal performance of the history, physical exam, medical decision making, and the department course for this patient. I have also personally directed, reviewed, and agree with the discharge instructions and disposition. Disposition/Present on Arrival - Present on Arrival Any Indicators Present on Arrival: No History of DVT/PE: No History of Uncontrolled Diabetes: No Urinary Catheter: No History of Decub. Ulcer: No History Surgical Site Infection Following: None - Disposition Have Diagnosis and Disposition been Completed?: Yes Diagnosis: Acute cholecystitis Disposition: HOSPITALIZED Disposition Time: 07:00 Patient Problems: Current Active Problems Problem Status Onset Acute cholecystitis Acute Condition: STABLE
[2017-12-20 04:02] LABS: BASO # 0.01 K/mm3 (0.0-2.0); BASO % 0.1 % (0.0-3.0); EOS # 0.1 (0.0-0.7); EOS % 1.7 % (1.5-5.0); GRAN # 5.07 (1.4-6.5); GRAN % 71.8 % (50.0-68.0); HEMOGLOBIN 14.5 g/dL (14.0-18.0); LYMPH # 1.3 (1.2-3.4); LYMPH % 18.8 % (22.0-35.0); MEAN CELL VOLUME 85.7 fl (80.0-105.0); MEAN CORPUSCULAR HEMOGLOBIN 29.1 pg (25.0-35.0); MEAN PLATELET VOLUME 9.3 fl (7.0-11.0); MONO # 0.5 (0.1-0.6); MONO % 7.6 % (1.0-6.0); RBC 4.98 10^6/uL (3.5-6.1); RED CELL DISTRIBUTION WIDTH 13.5 % (11.5-14.5); WHITE BLOOD COUNT 7.1 10^3/ul (4.5-11.0)
[2017-12-20 04:20] LABS: ALB/GLOB RATIO 1.3 (1.1-1.8); ALBUMIN 3.8 g/dL (3.0-4.8); CALCIUM 9.4 mg/dL (8.4-10.5)
[2017-12-20 04:23] LABS: INR 0.97 (0.93-1.08); PARTIAL THROMBOPLASTIN TIME 30.7 Seconds (25.1-36.5); PROTHROMBIN TIME 11.1 SECONDS (9.4-12.5)
[2017-12-20 06:54] LABS: URINE BILIRUBIN NEGATIVE (NEGATIVE); URINE BLOOD NEGATIVE (NEGATIVE); URINE GLUCOSE (UA) NEGATIVE (NEGATIVE); URINE LEUKOCYTE ESTERASE NEGATIVE Leu/uL (NEGATIVE); URINE NITRATE NEGATIVE (NEGATIVE); URINE PROTEIN 100 mg/dL (<30 mg/dL); URINE UROBILINOGEN 0.2 E.U./dL (<1 E.U./dL)
[2017-12-20 06:59] LABS: URINE COLOR LIGHT YELLOW (YELLOW)
[2017-12-20 07:00] LABS: URINE APPEARANCE CLEAR (CLEAR)
[2017-12-20 07:05] LABS: URINE EPITHELIAL CELLS 0 - 2 /hpf (0-5); URINE RBC 0 - 2 /hpf (0-2); URINE WBC 0 - 2 /hpf (0-6)
--- NOTE | 2017-12-20 07:23 | CT ---
EXAM: CT Abdomen and Pelvis Without Intravenous Contrast EXAM DATE/TIME: 12/20/2017 4:22 AM CLINICAL HISTORY: 57 years old, male; Pain; Abdominal pain; Flank; Right; Additional info: Right flank pain TECHNIQUE: Axial computed tomography images of the abdomen and pelvis without intravenous contrast. All CT scans at this facility use one or more dose reduction techniques, viz.: automated exposure control; ma/kV adjustment per patient size (including targeted exams where dose is matched to indication; i.e. head); or iterative reconstruction technique. Coronal and sagittal reformatted images were created and reviewed. COMPARISON: CT - ABD PELVIS W/O PO OR IV CONT 02/27/2017 12:00:55 AM FINDINGS: Lower thorax: No acute findings. ABDOMEN: Liver: Unremarkable. Gallbladder and bile ducts: Several gallstones in neck and proximal cystic duct. Mild pericholecystic fatty stranding. No biliary dilatation. Pancreas: Unremarkable. No ductal dilation. Spleen: Unremarkable. No splenomegaly. Adrenals: Unremarkable. No mass. Kidneys and ureters: Bilateral perinephric stranding again noted, slightly more prominent on the right, little change. No calculus. No hydronephrosis. Stomach and bowel: Unremarkable. No dilatation of small or large bowel. No mucosal thickening. Appendix: Tiny 1-2 mm size appendicoliths otherwise normal appendix. PELVIS: Bladder: Unremarkable. No stones. Reproductive: Unremarkable as visualized. ABDOMEN and PELVIS: Intraperitoneal space: Unremarkable. No free air. No significant fluid collection. Bones/joints: Spondylosis lower thoracic spine and at L5-S1. Mild facet joint arthrosis. Soft tissues: Unremarkable. Vasculature: Unremarkable. No abdominal aortic aneurysm. Lymph nodes: No enlarged lymph nodes. IMPRESSION: 1. Cholelithiasis with stones in neck and proximal cystic duct, associated findings concerning for early sign of cholecystitis. 2. Nonspecific bilateral perinephric stranding, unchanged.
[2017-12-20] MEDS ORDERED: Piperacillin/Tazobact 3.375 gm 100 ML IVPB STA (07:25)
--- NOTE | 2017-12-20 07:32 | ED PDOC ---
Physical Exam Vital Signs Temp Pulse Resp BP Pulse Ox 12/20/17 07:30 66 18 155/80 H 98 12/20/17 05:23 98.5 F 78 16 160/73 H 99 12/20/17 03:35 98 F 61 18 179/81 H 98 Medical Decision Making ED Course and Treatment: 12/20/2017 07:23 Abd/Pelvis CT IMPRESSION: 1. Cholelithiasis with stones in enck and proximal cystic duct, associated findings concerning for early signs of cholecystitis. 2. Nonspecific bilateral perinephric stranding, unchanged. Dictator: Kristen Acosta MD 12/20/17 07:30 Patient signed out to me by Dr. Cao. Dr. Cao discussed case with Dr. Benton, whom recommends admission to the surgical service. US showed cholecystitis and case discussed with Dr. Garcia who will accept the patient to his service. 12/20/17 07:59 Case discussed with Lupe, surgical instrument technician, who will be coming to see patient. - Lab Interpretations Lab Results: 12/20/17 03:45 12/20/17 03:45 Lab Results 12/20/17 06:35: Urine Color Light yellow, Urine Appearance Clear, Urine pH 6.0, Ur Specific [place] 1.015, Urine Protein 100 H, Urine Glucose (UA) Negative, Urine Ketones Negative, Urine Blood Negative, Urine Nitrate Negative, Urine Bilirubin Negative, Urine Urobilinogen 0.2, Ur Leukocyte Esterase Negative, Urine RBC 0 - 2, Urine WBC 0 - 2, Ur Epithelial Cells 0 - 2 12/20/17 03:45: Sodium 141, Potassium 4.4, Chloride 105, Carbon Dioxide 25, Anion Gap 15, BUN 34 H, Creatinine 3.2 H, Est GFR ( Amer) 25, Est GFR ( Non-Af Amer) 20, Random Glucose 124 H, Calcium 9.4, Total Bilirubin 0.3, AST 24 , ALT 32, Alkaline Phosphatase 58, Total Protein 6.7, Albumin 3.8, Globulin 2.9 , Albumin/Globulin Ratio 1.3, Lipase 354 H 12/20/17 03:45: PT 11.1, INR 0.97, APTT 30.7 12/20/17 03:45: WBC 7.1 D, RBC 4.98, Hgb 14.5, Hct 42.7, MCV 85.7, MCH 29.1, MCHC 34.0, RDW 13.5, Plt Count 149, MPV 9.3, Gran % 71.8 H, Lymph % (Auto) 18.8 L, [place] % (Auto) 7.6 H, Eos % (Auto) 1.7, Baso % (Auto) 0.1, Gran # 5.07, Lymph # (Auto) 1.3, [place] # (Auto) 0.5, Eos # (Auto) 0.1, Baso # (Auto) 0.01 - RAD Interpretation Radiology Orders: 12/20/17 04:22 ABD & PELVIS W/O PO OR IV CONT [CT] Stat - Medication Orders Current Medication Orders: Discontinued Medications Acetaminophen (Tylenol 325mg Tab) 650 mg PO STAT [facility] Stop: 12/20/17 06:14 Last Admin: 12/20/17 06:31 Dose: 650 mg MAR Pain/Vitals Document 12/20/17 06:31 AB (Rec: 12/20/17 06:31 AB [id number]) Pain Reassessment Is This A Pain ReAssessment? Yes Sleep Is patient sleeping during reassessment? No Presence of Pain Presence of Pain Yes Pain Scale Used Pain Scale Used Numeric Location Pain Location Body Site Back Piperacillin Sod/Tazobactam Sod (Zosyn 3.375 In Ns 100ml) 100 mls @ 200 mls/hr IVPB STAT STA PRN Reason: Protocol Stop: 12/20/17 07:54 Last Admin: 12/20/17 07:50 Dose: 200 mls/hr eMAR Start Stop Document 12/20/17 07:50 STEVE (Rec: 12/20/17 07:58 STEVE [id number]) Intravenous Solution Start Date 12/20/17 Start Time 07:50 End Date 12/20/17 End time 08:30 Total Infusion Time 40 Disposition/Present on Arrival - Present on Arrival Any Indicators Present on Arrival: No History of DVT/PE: No History of Uncontrolled Diabetes: No Urinary Catheter: No History of Decub. Ulcer: No History Surgical Site Infection Following: None - Disposition Have Diagnosis and Disposition been Completed?: Yes Diagnosis: Acute cholecystitis Disposition: HOSPITALIZED Disposition Time: 07:30 Patient Plan: Admission Patient Problems: Current Active Problems Problem Status Onset Acute cholecystitis Acute Condition: STABLE
--- NOTE | 2017-12-20 08:54 | CP.PCM.HP ---
"History of Present Illness - History of Present Illness History of Present Illness: GENERAL SURGERY H&P FOR DR. CROWLEY. Patient is a 57 year old male with a PMHx of Renal Insufficiency, HTN, B/L orbital periorbital cellulitis/uveitis, IgA 4 associated interstital nephritis, Renal CA (In Remission who presented with sharp, 10/10, RUQ pain that radiated to the flank. Patient states the pain began this morning around 3/4 AM. He had one episode on Non-Bloody, Non-Bilious vomiting when he woke up. He hasn't tried any modalities to relieve the pain. He states that rubbing his RUQ/Flank slightly relieves the pain. Denies anything that exacerbates the pain. ROS POSITIVES: RUQ pain, subjective fever, mild nausea, increased urinary frequency NEGATIVES: chills, SOB, chest pain, diarrhea, constipation, blood in stool, melena, dysuria, hematuria, incontinence PMHx: Renal Insufficiency, HTN, B/L orbital periorbital cellulitis/uveitis, IgA 4 associated interstital nephritis, Renal CA (In Remission PSHx: Deviated Septum, Colonoscopy (8 years ago), Kidney biopsy (6 years ago), Left Foot Surgery Allergies: NKDA SocialHx: Denies Tobacco use, admits to occasional Alcohol use, Denies illicit Drug use. Retired [employer] worker. Hos: Discharged 11/13/17 for B/L periorbital cellulitis FamHx: Cholecystitis (Mother) Meds: Reviewed Present on Admission - Present on Admission Any Indicators Present on Admission: No Review of Systems - Review of Systems Review of Systems: As per HPI. Past Patient History - Infectious Disease Hx of Infectious Diseases: None - Tetanus Immunizations Tetanus Immunization: Unknown - Past Medical History & Family History Past Medical History?: Yes - Past Social History Smoking Status: Never Smoked - CARDIAC Hx Cardiac Disorders: No Hx Hypertension: Yes - PULMONARY Hx Bronchitis: Yes - NEUROLOGICAL Hx Dizziness: Yes Hx Migraine: Yes - HEENT Hx HEENT Problems: Yes (CELLULITIS TO LEFT EYE) Other/Comment: sx for deviated septum 4 yrs ago, c/o of having 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 after having deviated septum sx, has had for last 2 yrs recurrent migranes and uvitis, c/o photophobia, blurred vision r eye - RENAL Hx Chronic Kidney Disease: Yes (RENAL INSUFFICIENCY) Hx Dialysis: No Other/Comment: kidney problem, 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 - ENDOCRINE/METABOLIC Hx Endocrine Disorders: No - HEMATOLOGICAL/ONCOLOGICAL Hx Blood Disorders: No (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ALT.) - INTEGUMENTARY Hx Dermatological Problems: (CELLULITIS TO L EYE 06-26-14,TATTOOS) Other/Comment: multiple tatoos - MUSCULOSKELETAL/RHEUMATOLOGICAL Hx Falls: No - GASTROINTESTINAL Hx Gastrointestinal Disorders: No Other/Comment: colonoscopy - GENITOURINARY/GYNECOLOGICAL Hx Genitourinary Disorders: Yes Hx Prostate Problems: (pt denies prostate problems) - PSYCHIATRIC Hx Psychophysiologic Disorder: No (OCCASIONAL BEERS) Hx Substance Use: No Other/Comment: in last 5 years lost his his job and his house - SURGICAL HISTORY Other/Comment: deviated septum 2014 left ft sx 1975 - ANESTHESIA Hx Anesthesia: Yes Hx Anesthesia Reactions: No Hx Malignant Hyperthermia: No Meds Allergies/Adverse Reactions: Allergies Allergy/AdvReac Type Severity Reaction Status Date / Time No Known Allergies Allergy Verified 02/26/17 23:20 Physical Exam - Constitutional Appears: Well, Non-toxic, No Acute Distress - Head Exam Head Exam: ATRAUMATIC, NORMAL INSPECTION, NORMOCEPHALIC - Eye Exam Eye Exam: EOMI, Normal appearance - ENT Exam ENT Exam: Mucous Membranes Moist - Respiratory Exam Respiratory Exam: Clear to Auscultation Bilateral, NORMAL BREATHING PATTERN. absent: Rales, Rhonchi, Wheezes - Cardiovascular Exam Cardiovascular Exam: Bradycardia, +S1, +S2 - GI/Abdominal Exam GI & Abdominal Exam: Normal Bowel Sounds, Soft, Tenderness (RUQ). absent: Distended, Firm, Guarding, Mass, Organomegaly, Rebound, Rigid Additional comments: Negative Christensen's Sign. - Extremities Exam Extremities exam: Positive for: normal capillary refill, normal inspection - Back Exam Back exam: absent: CVA tenderness (L), CVA tenderness (R) - Neurological Exam Neurological exam: Alert, Oriented x3 - Psychiatric Exam Psychiatric exam: Normal Affect, Normal Mood - Skin Skin Exam: Dry, Intact, Normal Color, Warm Additional comments: Multiple Tattoos Results - Vital Signs Recent Vital Signs: Last Vital Signs Temp 98.5 F 12/20/17 05:23 Pulse 66 12/20/17 07:30 Resp 18 12/20/17 07:30 BP 155/80 H 12/20/17 07:30 Pulse Ox 98 12/20/17 07:30 - Labs Result Diagrams: 12/20/17 03:45 12/20/17 03:45 Assessment & Plan - Assessment and Plan (Free Text) Assessment: 57 year old male with RUQ tenderness. R/O acute cholecystitis. CT Abd/Pelvis - Noted Lipase - 354 | Cr - 3.2 Liver Enzymes/T. Bili: Within normal limits. No Leukocytosis, VSS, Afebrile Plan: NPO IV fluids PRN Pain Control PRN Nausea Control HIDA Medicine Consult (Dr. Benton) Pending HIDA Scan results to determine further surgical intervention. Further Recs as per Dr. Jose Patel - PGY1"
[2017-12-20] MEDS ORDERED: Morphine 2 mg/ml ISec IVP PRN (09:28)
[2017-12-20] MEDS: Sodium Chloride 0.9% 1,000 ML IV SCH ×2 (09:55→21:35)
[2017-12-20] MEDS ORDERED: Enoxaparin 30 mg Syringe SC SCH (10:00)
[2017-12-20] MEDS: Enoxaparin 30 mg Syringe SC SCH (10:47)
[2017-12-20 11:41] VITALS: BMI 26.9
--- NOTE | 2017-12-20 17:48 | NM ---
PROCEDURE: Nuclear Medicine Hepatobiliary Scan HISTORY: R/O Cholelithiasis COMPARISON: Comparison is made to the previous CT dated 12/20/2017 TECHNIQUE: 5.4 mCi of technetium 99m Mebrofenin was administered intravenously. Planar images of the abdomen were obtained at 5 min intervals to 60 mins. Delayed images were also obtained. FINDINGS: LIVER: Timely and homogenous uptake. COMMON BILE DUCT: identified at 5 mins. GALLBLADDER: Was not ended if right. SMALL BOWEL: Identified at 15 mins. IMPRESSION: Nonvisualization of the gallbladder up to 4 hours delayed images. Findings concerning for acute cholecystitis.
[2017-12-20] MEDS ORDERED: Morphine 4 mg/ml ISec IVP PRN (19:37)
--- NOTE | 2017-12-20 19:41 | CP.PCM.PCO ---
Physician Communication Note - Physician Communication Note Physician Communication Note: HIDA + for acute rosenda, plan for OR vs. Monday.
[2017-12-20] MEDS: Morphine 2 mg/ml ISec IVP PRN (19:48)
[2017-12-20] MEDS ORDERED: Ciprofloxacin 400mg/200ml D5W 400 MG/200 ML BAG IVPB SCH (22:00)
[2017-12-21] MEDS: Sodium Chloride 0.9% 1,000 ML IV SCH ×2 (06:06→18:08)
[2017-12-21 07:22] LABS: MEAN CELL VOLUME 86.8 fl (80.0-105.0); MEAN CORPUSCULAR HEMOGLOBIN 28.9 pg (25.0-35.0); MEAN CORPUSCULAR HGB CONC 33.3 g/dl (31.0-37.0); MEAN PLATELET VOLUME 9.2 fl (7.0-11.0); RBC 4.85 10^6/uL (3.5-6.1); RED CELL DISTRIBUTION WIDTH 13.6 % (11.5-14.5); WHITE BLOOD COUNT 7.1 10^3/ul (4.5-11.0)
[2017-12-21 07:31] LABS: ALB/GLOB RATIO 1.3 (1.1-1.8); ALBUMIN 3.5 g/dL (3.0-4.8); CALCIUM 9.1 mg/dL (8.4-10.5)
--- NOTE | 2017-12-21 09:26 | CP.PCM.PN ---
Subjective - Date & Time of Evaluation Date of Evaluation: 12/21/17 Time of Evaluation: 09:16 - Subjective Subjective: GENERAL SURGERY CONSULT PROGRESS NOTE FOR DR. CROWLEY. Patient seen and examined. No overnight events reported. Denies any fevers/ chills. Complains of mild RUQ abdominal pain. Objective - Vital Signs/Intake and Output Vital Signs (last 24 hours): Temp Pulse Resp BP Pulse Ox 97.8 F 76 22 149/104 H 99 12/21/17 08:00 12/21/17 08:00 12/21/17 08:00 12/21/17 08:00 12/21/17 08:00 - Medications Medications: Current Medications Acetaminophen (Tylenol 325mg Tab) 650 mg PO Q6H PRN PRN Reason: Fever >100.4 F Amlodipine Besylate (Norvasc) 10 mg PO DAILY [facility] Enoxaparin Sodium (Lovenox) 30 mg SC DAILY [facility] PRN Reason: Protocol Last Admin: 12/20/17 10:47 Dose: 30 mg Sodium Chloride (Sodium Chloride 0.9%) 1,000 mls @ 100 mls/hr IV .Q10H [facility] Last Admin: 12/21/17 06:06 Dose: Not Given Lisinopril (Zestril) 10 mg PO DAILY [facility] Last Admin: 12/20/17 15:06 Dose: 10 mg Morphine Sulfate (Morphine) 2 mg IVP Q4H PRN PRN Reason: Pain, moderate (4-7) Last Admin: 12/20/17 19:48 Dose: 2 mg Morphine Sulfate (Morphine) 4 mg IVP Q4H PRN PRN Reason: Pain, severe (8-10) Ondansetron HCl (Zofran Inj) 4 mg IVP Q6H PRN PRN Reason: Nausea/Vomiting - Labs Labs: 12/21/17 06:30 12/21/17 06:30 PT 11.1 SECONDS (9.4-12.5) 12/20/17 03:45 INR 0.97 (0.93-1.08) 12/20/17 03:45 APTT 30.7 Seconds (25.1-36.5) 12/20/17 03:45 - Additional Findings Additional findings: - Constitutional Appears: Well, Non-toxic, No Acute Distress - Head Exam Head Exam: ATRAUMATIC, NORMAL INSPECTION, NORMOCEPHALIC - Eye Exam Eye Exam: EOMI, Normal appearance - ENT Exam ENT Exam: Mucous Membranes Moist - Respiratory Exam Respiratory Exam: NORMAL BREATHING PATTERN. absent: Accessory Muscle Use. - Cardiovascular Exam Cardiovascular Exam: +S1, +S2 - GI/Abdominal Exam GI & Abdominal Exam: Soft, Tenderness (RUQ). absent: Distended, Firm, Guarding , Mass, Organomegaly, Rebound, Rigid Additional comments: Negative Christensen's Sign. - Extremities Exam Extremities exam: Positive for: normal capillary refill, normal inspection - Back Exam Back exam: absent: CVA tenderness (L), CVA tenderness (R) - Neurological Exam Neurological exam: Alert, Oriented x3 - Psychiatric Exam Psychiatric exam: Normal Affect, Normal Mood - Skin Skin Exam: Dry, Intact, Normal Color, Warm Additional comments: Multiple Tattoos Assessment and Plan - Assessment and Plan (Free Text) Assessment: 57 year old male with acute cholecystitis HIDA - Positive Plan: OR on Monday morning IV fluids PRN Pain Control PRN Nausea Control NPO after midnight Cont. Antibiotics Medicine Consult (Dr. Benton). Recs Appreciated Added home prednisone regiment. Further Recs as per Dr. Jose Patel - PGY1
[2017-12-21] MEDS ORDERED: Non Formulary Medication (Prednisone [Rayos] 5 MG) PO SCH (09:30)
--- NOTE | 2017-12-21 10:27 | RAD ---
HISTORY: pre op COMPARISON: 03/28/2014 TECHNIQUE: Chest PA and lateral FINDINGS: LUNGS: No active pulmonary disease. PLEURA: No significant pleural effusion identified. No pneumothorax apparent. CARDIOVASCULAR: Normal. OSSEOUS STRUCTURES: No significant abnormalities. VISUALIZED UPPER ABDOMEN: Normal. OTHER FINDINGS: None. IMPRESSION: No active disease.
--- NOTE | 2017-12-21 18:04 | CARD ---
APPROVED REPORT EKG Measurement Heart [id number] <Conclusion> Sinus bradycardia Possible Anterior infarct, age undetermined Abnormal ECG
--- NOTE | 2017-12-21 21:17 | CON ---
DATE: 12/20/2017 Preoperative evaluation and risk stratification for surgery for OR for cholecystectomy. HISTORY OF PRESENT ILLNESS: Briefly, this is a 57-year-old male with past medical history significant for renal insufficiency, hypertension, bilateral orbital cellulitis, uveitis, renal cell cancer, some renal insufficiency, admitted with acute cholecystitis for preoperative evaluation. The patient denies any chest pain, shortness of breath, any palpitation, very active life, lives 3rd floor and takes the stairs with 2 bags of grocery. No chest pain. PAST MEDICAL HISTORY: Significant for renal insufficiency and possible renal cell cancer and on chemo. PAST SURGICAL HISTORY: History of colonoscopy, history of kidney biopsy 6 years ago, left foot surgery, deviated nasal septum surgery. ALLERGIES: NO KNOWN DRUG ALLERGIES. SOCIAL HISTORY: Denies smoking. Denies any history of alcohol abuse, socially drinks. CURRENT MEDICATIONS: The patient is taking oxycodone, prednisone, lisinopril. REVIEW OF SYSTEMS: As per HPI. PHYSICAL EXAMINATION: GENERAL: Not in apparent distress. VITAL SIGNS: Temperature afebrile, heart rate 76, blood pressure 149/104. HEENT: PERRLA. Extraocular muscles are intact. NECK: Supple. No carotid bruit or thyromegaly. CHEST: Clear to auscultation. HEART: S1 and S2 regular. ABDOMEN: Soft. EXTREMITIES: Clubbing and cyanosis, negative. LABORATORY DATA: Blood workup as follows: WBC 7.1, hemoglobin 14, hematocrit 42.1, platelet count 160. Chemistry showed sodium 144, potassium 4.9, chloride 101, carbon dioxide 25, anion gap of 13, BUN 30, creatinine 2.7. Total protein 6.2, albumin 3.5, albumin-globulin ratio 1.3. The patient's last echo in the chart, sinus bradycardia, otherwise normal, dated 01/26/2015. IMPRESSION: A 57-year-old male with a past medical history significant for hypertension, renal insufficiency with a creatinine clearance 20-25 mL an hour, stage IV chronic kidney disease, history of renal cell cancer, on chemo, admitted with acute cholecystitis requiring surgery, going to the OR. The patient has very active life, goes to the 3rd floor, take stairs, no evidence of ischemia. No evidence of congestive heart failure. No evidence of arrhythmia. The patient is okay to go with moderate risks of underlying comorbidity. No absolute contraindications. We will suggest aggressive control of blood pressure, monitor renal function, avoid nephrotoxic medications. Put hydralazine p.r.n. We will follow with you. We will get EKG before OR as no EKG is available. The most recent EKG is in 2014 and normal sinus. We will follow with you. Thank you for providing the opportunity in taking care of the patient. Anai Peña MD
[2017-12-21] MEDS: Morphine 2 mg/ml ISec IVP PRN (21:26)
--- NOTE | 2017-12-21 22:03 | CON ---
DATE: HISTORY OF PRESENT ILLNESS: The patient is seen with right upper quadrant pain. An ultrasound showing stones. A CAT showing what seems to be mild inflammation consistent with acute cholecystitis. The HIDA is positive. Afebrile. Vital signs are normal. LABORATORY DATA: White count is normal. functions show a BUN of 30 and the creatinine is 2.7. He is known to have a glomerulonephritis, being followed by Dr. Benton. Physical exam is remarkable for being healthy, cooperative, mild epigastric right upper quadrant pain without guarding or rebound. We will plan elective cholecystectomy. At this time, we are planning antibiotics and the operation is planned for 7:30 in the morning. Francisco Garcia MD
[2017-12-22] MEDS: Sodium Chloride 0.9% 1,000 ML IV SCH (06:02)
[2017-12-22 07:11] LABS: MEAN CELL VOLUME 86.6 fl (80.0-105.0); MEAN CORPUSCULAR HEMOGLOBIN 28.8 pg (25.0-35.0); MEAN CORPUSCULAR HGB CONC 33.3 g/dl (31.0-37.0); MEAN PLATELET VOLUME 9.3 fl (7.0-11.0); RBC 4.86 10^6/uL (3.5-6.1); RED CELL DISTRIBUTION WIDTH 13.3 % (11.5-14.5); WHITE BLOOD COUNT 10.8 10^3/ul (4.5-11.0)
[2017-12-22 07:27] LABS: ALB/GLOB RATIO 1.2 (1.1-1.8); ALBUMIN 3.6 g/dL (3.0-4.8); CALCIUM 9.6 mg/dL (8.4-10.5)
[2017-12-22] MEDS ORDERED: Iohexol 240 (50 ml) ONE (07:27)
[2017-12-22] MEDS ORDERED: Bupivacaine 0.5% Inj(30mL) ONE (07:27)
[2017-12-22] MEDS ORDERED: Propofol 10 mg/ml Inj (20 ML) ONE (07:34)
[2017-12-22] MEDS ORDERED: Midazolam 2 MG/2 ML VIAL ONE (07:34)
[2017-12-22] MEDS ORDERED: Rocuronium 10 mg/ml (5 ml) ONE ×2 (07:45→08:52)
[2017-12-22] MEDS ORDERED: Neostigmine Methylsulfate 3mg/3ml Syringe IV ONE ×2 (08:34→09:20)
--- NOTE | 2017-12-22 08:49 | CON ---
DATE: 12/21/2017 CHIEF COMPLAINT AND HISTORY OF PRESENT ILLNESS: This is a 57-year-old male who is coming into the hospital because of right upper quadrant pain. The patient states that he started having right upper quadrant pain prior to coming into the emergency room. He said it was about 8/10. It was not associated with nausea, no vomiting. He has no dysuria, frequency, no nocturia. He states when he was at home, he did have, what he thought was, feeling of fever, but did not measure what the temperature. He was having increased urinary frequency. The patient did have an episode of vomiting, non bloody. He said since he has been in the ER, it did improve. The patient has a history of IgG4-associated tubulointerstitial nephritis. He said this morning, he is comfortable. He has no complaints of any headache, no nausea. REVIEW OF SYSTEMS: All other review of symptoms are within normal limits except as mentioned. PAST MEDICAL HISTORY: 1. IgG4-associated tubulointerstitial nephritis. 2. CKD stage 3. 3. Uveitis. 4. Sinusitis. SOCIAL HISTORY: He does smoke. He does not drink. He lives alone. He is currently unemployed. FAMILY HISTORY: Noncontributory. MEDICATIONS: He takes Percocet for chronic back pain and lisinopril. PHYSICAL EXAMINATION: VITAL SIGNS: Temperature is 97.5, pulse is 50, blood pressure is 191/98, respirations 20, and O2 saturation 100%. GENERAL: The patient lying in bed, uncomfortable, and in no acute distress. HEENT: Atraumatic and normocephalic. Anicteric sclerae. Moist mucosa. [place] conjunctivae. No oral lesions. NECK: No JVD, anterior and posterior adenopathy, thyromegaly, or bruits. CARDIOVASCULAR: S1 and S2 regular. No murmur, rubs, or gallop. LUNGS: Clear to auscultation bilaterally. No wheezes, rales, or rhonchi. ABDOMEN: Bowel sounds are positive. Right upper quadrant tenderness with no rebound and no guarding. EXTREMITIES: No cyanosis, clubbing, or edema. NEUROLOGIC: No facial asymmetry. Tongue is midline. No uvula deviation. Power is 5/5 upper extremity and lower extremity. Sensation intact in upper extremity and lower extremity. PSYCHIATRIC: He is awake, alert and oriented x3. No anxiety or depression. He has normal affect. GENITOURINARY: No CVA tenderness. VASCULAR: 2+ pulses in the carotid pulses and pedal pulses. SKIN: No erythema or nodules. SPINE: Shows normal curvature. LABORATORY DATA: White count of 7.1, hemoglobin 14.5. He has an INR of 0.97. Chemistry shows sodium of 141, potassium is 4.4. Creatinine is 3.2, his baseline creatinine is about 2.2. Urine shows protein is 100, his nitrites and bilirubin are negative. CT of the abdomen and pelvis done shows cholelithiasis with stones in the neck and proximal cystic duct as well as GI finding concerning for early cholecystitis. Perinephric stranding, that is unchanged. Biliary scan shows non-visualization of the gallbladder after 4 hours delayed imaging. ASSESSMENT: 1. Acute cholecystitis. 2. Acute kidney injury with chronic kidney disease, stage 3. 3. IgG4-associated tubulointerstitial nephritis. PLAN: The patient's pain is under control. He is coming in with right upper quadrant pain. CT scan that shows gallstones. Clinically, he has cholecystitis. He has kidney function that is worsened previously, he has been placed on IV fluids to help improve his kidney function. He is on Zestril for his hypertension. His blood pressure remains elevated. I will add amlodipine to help control his blood pressure. He is on Zofran as needed. The patient is on morphine for pain. He is on Lovenox for DVT prophylaxis. He will most likely need surgery. I will recommend cardiac evaluation with Dr. Peña. I will continue to follow the patient. I know the patient well as an outpatient. He also has chronic back pains and does use pain medications for this. Jeovany Benton MD
--- NOTE | 2017-12-22 09:44 | PCM.SURG1 ---
Surgeon's Initial Post Op Note - Surgeon's Notes Surgeon: Dr. Garcia Flat[place] Ironer: Dr. Michele PGY3 Dr. Merritt PGY2 Type of Anesthesia: General Endo, Local Pre-Operative Diagnosis: acute cholecystitis Operative Findings: acutely inflammed gallbladder, IOC showing long cystic duct , CBD visualized w/ contrast passing into duodenum Post-Operative Diagnosis: same Operation Performed: laparoscopic cholecystectomy with IOC Specimen/Specimens Removed: gallbladder Estimated Blood Loss: EBL {In ML}: 25 Blood Products Given: N/A Drains Used: No Drains Post-Op Condition: Good Date of Surgery/Procedure: 12/22/17 Time of Surgery/Procedure: 09:43
[2017-12-22] MEDS ORDERED: HYDROmorphone 0.5 mg/0.5 ml ISec IVP PRN (09:49)
--- NOTE | 2017-12-22 09:59 | PN ---
DATE: SUBJECTIVE: The patient has no complaints of any chest pain. No shortness of breath. No headaches. No dizziness. PHYSICAL EXAMINATION VITAL SIGNS: Temperature is 97.2, pulse of 71, blood pressure 166/88, and respirations 20. GENERAL: The patient is lying in bed, flat, comfortable. HEENT: No oral lesion. Anicteric sclerae. Moist mucosa. NECK: No JVD, adenopathy, or thyromegaly. CARDIOVASCULAR: S1 and S2, regular. No murmurs, rubs, or gallops. LUNGS: Clear to auscultation bilaterally. No wheeze, rales, or rhonchi. ABDOMEN: Bowel sounds are positive. Soft, nontender and nondistended. EXTREMITIES: No cyanosis, clubbing or edema. LABORATORY DATA: Creatinine is 2.7. ASSESSMENT 1. Acute cholecystitis. 2. Chronic kidney disease stage IV. 3. IgG4 tubulointerstitial nephritis. 4. Hypertension, uncontrolled. PLAN: The patient is scheduled for cholecystectomy this morning. I did speak to Dr. Garcia. The patient is on Lovenox for DVT prophylaxis. He is on morphine for pain. I added Norvasc yesterday to the patient's lisinopril. The patient's blood pressure continues to be elevated. I will increase the patient's lisinopril to 40 mg. The patient should get additional dose of Solu-Medrol prior to going to the OR. The patient is on his regular dose of prednisone 25 mg daily. He has been taking this on his own and has not had this oversight. I warned him to not continue such high doses of prednisone. He is on a liquid diet. I will decrease his fluids. We need to taper his prednisone as an outpatient. We will continue to follow closely. Jeovany Benton MD
[2017-12-22] MEDS ORDERED: Ciprofloxacin 400mg/200ml D5W 400 MG/200 ML BAG IVPB SCH ×2 (11:30→22:00)
[2017-12-22] MEDS: Oxycodone/Acetaminophen 5/325 mg Tab PO PRN ×2 (15:21→20:13)
--- NOTE | 2017-12-22 17:26 | RAD ---
PROCEDURE: Intraoperative cholangiogram. HISTORY: R/O OBSTRUCTION COMPARISON: None TECHNIQUE: Standard protocol for this study/examination. FINDINGS: Total fluoroscopic time (continuous mode) utilized during the procedure: 19.9 seconds. No filling defects identified within the visualized common duct. Unremarkable ampulla as visualized. IMPRESSION: Submitted images from the current procedure: 1.0
[2017-12-23 01:37] VITALS: RESP 18
[2017-12-23] MEDS: Oxycodone/Acetaminophen 10/325 mg Tab PO PRN ×4 (05:36→20:16)
[2017-12-23 07:55] LABS: HEMOGLOBIN 14.2 g/dL (14.0-18.0); MEAN CELL VOLUME 87.4 fl (80.0-105.0); MEAN CORPUSCULAR HEMOGLOBIN 28.9 pg (25.0-35.0); MEAN PLATELET VOLUME 9.7 fl (7.0-11.0); RBC 4.92 10^6/uL (3.5-6.1); RED CELL DISTRIBUTION WIDTH 13.7 % (11.5-14.5); WHITE BLOOD COUNT 15.8 10^3/ul (4.5-11.0)
[2017-12-23 08:12] LABS: ALB/GLOB RATIO 1.2 (1.1-1.8); ALBUMIN 3.7 g/dL (3.0-4.8); CALCIUM 9.6 mg/dL (8.4-10.5)
[2017-12-23] MEDS: Sodium Chloride 0.9% 1,000 ML IV SCH ×3 (08:39→23:53)
[2017-12-23] MEDS: Enoxaparin 30 mg Syringe SC SCH (10:06)
--- NOTE | 2017-12-23 13:26 | CP.PCM.PN ---
Subjective - Date & Time of Evaluation Date of Evaluation: 12/23/17 Time of Evaluation: 13:22 - Subjective Subjective: Surgery: Dr. Garcia Patient doing well. Denies fever, chills, n/v. Reports flatus. Has been OOB. Tolerating diet. Objective - Vital Signs/Intake and Output Vital Signs (last 24 hours): Temp Pulse Resp BP Pulse Ox 97.8 F 68 18 164/81 H 99 12/23/17 08:54 12/23/17 08:54 12/23/17 08:54 12/23/17 10:00 12/23/17 08:54 Intake and Output: 12/23/17 12/23/17 06:59 18:59 Intake Total 1840 Balance 1840 - Medications Medications: Current Medications Acetaminophen (Tylenol 325mg Tab) 650 mg PO Q6H PRN PRN Reason: Fever >100.4 F Amlodipine Besylate (Norvasc) 10 mg PO DAILY [facility] Last Admin: 12/23/17 10:00 Dose: 10 mg Enoxaparin Sodium (Lovenox) 30 mg SC DAILY [facility] PRN Reason: Protocol Last Admin: 12/23/17 10:06 Dose: 30 mg Hydralazine HCl (Apresoline) 10 mg IVP Q6 PRN PRN Reason: for SBP>160 Sodium Chloride (Sodium Chloride 0.9%) 1,000 mls @ 50 mls/hr IV .Q20H [facility] Last Admin: 12/23/17 08:39 Dose: 50 mls/hr Lisinopril (Zestril) 40 mg PO DAILY [facility] Last Admin: 12/23/17 10:00 Dose: 40 mg Metoclopramide HCl (Reglan) 10 mg IV ONCE PRN PRN Reason: Nausea/Vomiting Ondansetron HCl (Zofran Inj) 4 mg IVP Q6H PRN PRN Reason: Nausea/Vomiting Oxycodone/Acetaminophen (Percocet 10/325 Mg Tab) 1 tab PO Q4H PRN PRN Reason: Pain, severe (8-10) Last Admin: 12/23/17 10:01 Dose: 1 tab Oxycodone/Acetaminophen (Percocet 5/325 Mg Tab) 1 tab PO Q4H PRN PRN Reason: Pain, moderate (4-7) Stop: 12/25/17 13:59 Last Admin: 12/22/17 20:13 Dose: 1 tab Prednisone (Prednisone Tab) 25 mg PO DAILY [facility] - Labs Labs: 12/23/17 07:00 12/23/17 07:00 PT 11.1 SECONDS (9.4-12.5) 12/20/17 03:45 INR 0.97 (0.93-1.08) 12/20/17 03:45 APTT 30.7 Seconds (25.1-36.5) 12/20/17 03:45 - Constitutional Appears: Non-toxic, No Acute Distress - Head Exam Head Exam: ATRAUMATIC, NORMOCEPHALIC - Eye Exam Eye Exam: EOMI, Normal appearance - ENT Exam ENT Exam: Mucous Membranes Moist - Respiratory Exam Respiratory Exam: NORMAL BREATHING PATTERN. absent: Respiratory Distress - Cardiovascular Exam Cardiovascular Exam: REGULAR RHYTHM. absent: Tachycardia - GI/Abdominal Exam GI & Abdominal Exam: Soft. absent: Distended, Tenderness Assessment and Plan - Assessment and Plan (Free Text) Assessment: 57 y/o male POD1 lap ros[place] Plan: -leukocytosis, most likely reactive repeat Monday -will most likely d/c monday pending labs -cont diet -cont OOB -cont IS use -medical consult appreciated -d/w Dr. Jose Sheets PGY3
--- NOTE | 2017-12-23 16:03 | PN ---
DATE: 12/23/2017 SUBJECTIVE: The patient has no complaints of any chest pain. No shortness of breath. No headache or dizziness. He states that she feels well. He is tolerating his diet. PHYSICAL EXAMINATION: VITAL SIGNS: Temperature is 97.8, pulse is 58, blood pressure is 164/81, respirations 18. GENERAL: The patient is lying in bed, flat, comfortable. HEENT: No oral lesion. Anicteric sclerae. Moist mucosa. NECK: No JVD, adenopathy, or thyromegaly. CARDIOVASCULAR: S1 and S2, regular. No murmurs, rubs, or gallops. LUNGS: Clear to auscultation bilaterally. No wheeze, rales, or rhonchi. ABDOMEN: Bowel sounds are positive, soft, nontender and nondistended. EXTREMITIES: No cyanosis, clubbing or edema. LABORATORY DATA: White count of 15.8. ASSESSMENT: 1. Status post cholecystectomy, postoperative day #1. 2. Chronic kidney disease, stage 4. 3. IgG4 tubulointerstitial nephritis. 4. Hypertension. PLAN: The patient is currently comfortable. The patient is feeling well. The patient is on Norvasc for his blood pressure. Blood pressure is better, we will still need further management as an outpatient. He is on Lovenox for DVT prophylaxis. The patient is on prednisone daily. I did speak to Dr. Garcia regarding the case. The patient can be discharged from my point of view and be followed up as an outpatient. Jeovany Benton MD
[2017-12-24 08:03] VITALS: BP 157/94; PULSE 64; TEMP 98.2; O2SAT 97
[2017-12-24 08:09] LABS: HEMOGLOBIN 14.7 g/dL (14.0-18.0); MEAN CELL VOLUME 87.7 fl (80.0-105.0); MEAN CORPUSCULAR HEMOGLOBIN 29.2 pg (25.0-35.0); MEAN CORPUSCULAR HGB CONC 33.3 g/dl (31.0-37.0); MEAN PLATELET VOLUME 9.5 fl (7.0-11.0); RBC 5.03 10^6/uL (3.5-6.1); RED CELL DISTRIBUTION WIDTH 13.8 % (11.5-14.5); WHITE BLOOD COUNT 9.8 10^3/ul (4.5-11.0)
[2017-12-24 08:24] LABS: ALB/GLOB RATIO 1.3 (1.1-1.8); ALBUMIN 3.9 g/dL (3.0-4.8); CALCIUM 9.8 mg/dL (8.4-10.5)
--- NOTE | 2017-12-24 08:51 | CP.PCM.DIS ---
Provider - Provider Date of Admission: 12/21/17 15:10 Attending physician: Francisco Garcia MD Primary care physician: Jovanni Garrido MD Time Spent in preparation of Discharge (in minutes): 45 Diagnosis - Discharge Diagnosis (1) Acute cholecystitis Status: Acute Priority: High (2) Hypertension Status: Chronic Priority: Medium (3) Chronic uveitis of both eyes Status: Chronic Priority: Medium (4) IgA nephropathy Status: Chronic Priority: Medium (5) Renal cancer Status: Resolved Priority: Low Hospital Course - Lab Results Lab Results: Most Recent Lab Values WBC 9.8 10^3/ul (4.5-11.0) D 12/24/17 07:30 RBC 5.03 10^6/uL (3.5-6.1) 12/24/17 07:30 Hgb 14.7 g/dL (14.0-18.0) 12/24/17 07:30 Hct 44.1 % (42.0-52.0) 12/24/17 07:30 MCV 87.7 fl (80.0-105.0) 12/24/17 07:30 MCH 29.2 pg (25.0-35.0) 12/24/17 07:30 MCHC 33.3 g/dl (31.0-37.0) 12/24/17 07:30 RDW 13.8 % (11.5-14.5) 12/24/17 07:30 Plt Count 152 10^3/uL (120.0-450.0) 12/24/17 07:30 MPV 9.5 fl (7.0-11.0) 12/24/17 07:30 Gran % 71.8 % (50.0-68.0) H 12/20/17 03:45 Lymph % (Auto) 18.8 % (22.0-35.0) L 12/20/17 03:45 Gates % (Auto) 7.6 % (1.0-6.0) H 12/20/17 03:45 Eos % (Auto) 1.7 % (1.5-5.0) 12/20/17 03:45 Baso % (Auto) 0.1 % (0.0-3.0) 12/20/17 03:45 Gran # 5.07 (1.4-6.5) 12/20/17 03:45 Lymph # (Auto) 1.3 (1.2-3.4) 12/20/17 03:45 Gates # (Auto) 0.5 (0.1-0.6) 12/20/17 03:45 Eos # (Auto) 0.1 (0.0-0.7) 12/20/17 03:45 Baso # (Auto) 0.01 K/mm3 (0.0-2.0) 12/20/17 03:45 PT 11.1 SECONDS (9.4-12.5) 12/20/17 03:45 INR 0.97 (0.93-1.08) 12/20/17 03:45 APTT 30.7 Seconds (25.1-36.5) 12/20/17 03:45 Sodium 145 mmol/L (132-148) 12/24/17 07:30 Potassium 3.9 mmol/L (3.6-5.0) 12/24/17 07:30 Chloride 108 mmol/L (98-107) H 12/24/17 07:30 Carbon Dioxide 25 mmol/L (21-33) 12/24/17 07:30 Anion Gap 16 (10-20) 12/24/17 07:30 BUN 29 mg/dL (7-21) H 12/24/17 07:30 Creatinine 2.3 mg/dl (0.8-1.5) H 12/24/17 07:30 Est GFR ( Amer) 36 12/24/17 07:30 Est GFR (Non-Af Amer) 30 12/24/17 07:30 Random Glucose 85 mg/dL (70-110) 12/24/17 07:30 Calcium 9.8 mg/dL (8.4-10.5) 12/24/17 07:30 Total Bilirubin 0.4 mg/dL (0.2-1.3) 12/24/17 07:30 AST 16 U/L (17-59) L 12/24/17 07:30 ALT 24 U/L (7-56) 12/24/17 07:30 Alkaline Phosphatase 51 U/L (38-126) 12/24/17 07:30 Total Protein 6.9 g/dL (5.8-8.3) 12/24/17 07:30 Albumin 3.9 g/dL (3.0-4.8) 12/24/17 07:30 Globulin 3.1 gm/dL 12/24/17 07:30 Albumin/Globulin Ratio 1.3 (1.1-1.8) 12/24/17 07:30 Lipase 354 U/L (23-300) H 12/20/17 03:45 Urine Color Light yellow (YELLOW) 12/20/17 06:35 Urine Appearance Clear (CLEAR) 12/20/17 06:35 Urine pH 6.0 (4.7-8.0) 12/20/17 06:35 Ur Specific [place] 1.015 (1.005-1.035) 12/20/17 06:35 Urine Protein 100 mg/dL (<30 mg/dL) H 12/20/17 06:35 Urine Glucose (UA) Negative mg/dL (NEGATIVE) 12/20/17 06:35 Urine Ketones Negative mg/dL (NEGATIVE) 12/20/17 06:35 Urine Blood Negative (NEGATIVE) 12/20/17 06:35 Urine Nitrate Negative (NEGATIVE) 12/20/17 06:35 Urine Bilirubin Negative (NEGATIVE) 12/20/17 06:35 Urine Urobilinogen 0.2 E.U./dL (<1 E.U./dL) 12/20/17 06:35 Ur Leukocyte Esterase Negative [place]/uL (NEGATIVE) 12/20/17 06:35 Urine RBC 0 - 2 /hpf (0-2) 12/20/17 06:35 Urine WBC 0 - 2 /hpf (0-6) 12/20/17 06:35 Ur Epithelial Cells 0 - 2 /hpf (0-5) 12/20/17 06:35 Blood Type O POSITIVE 12/22/17 06:30 Blood Type Confirm O POSITIVE 12/22/17 07:46 Antibody Screen Negative 12/22/17 06:30 BBK History Checked No verified bt 12/22/17 06:30 - Hospital Course Hospital Course: Patient is a 57year old male who presented to the ED on 12/20/17 with sharp RUQ pain that radiated to the flank for 1 day associated with emesis. CT abdomen and pelvis was showed cholelithiasis and suspicion of early cholecystitis. Patient was admitted and medicine was consulted to manage patient's complicated medical problems. HIDA scan was performed and indicative of acute cholecystitis. Patient was taken to the OR for laparoscopic cholecystectomy and intraoperative cholangiogram on 12/22 which was performed without complication. Patient tolerated the procedure well and on postoperative day 1 was able to tolerate a regular diet and pain was well controlled on PO pain medications; however, his WBC was 15.8 so patient remained for one more day of observation. On POD #2 patient's WBC had resolved, and his clinical status had only improved , so he was discharged to home with PO pain medication and instructions to follow up with Dr. Garcia in his office and with his primary medical doctor. For full hospital course, refer to chart Discharge Exam - Head Exam Head Exam: ATRAUMATIC, NORMOCEPHALIC - Eye Exam Eye Exam: Normal appearance. absent: Conjunctival injection, Scleral icterus - ENT Exam ENT Exam: Mucous Membranes Moist, Normal Oropharynx - Respiratory Exam Respiratory Exam: NORMAL BREATHING PATTERN, UNREMARKABLE. absent: Accessory Muscle Use - Cardiovascular Exam Cardiovascular Exam: RRR - GI/Abdominal Exam GI & Abdominal Exam: Soft, Tenderness (mild RUQ tenderness). absent: Distended Additional comments: incisions well approximated, no drainage or bleeding or erythema - Neurological Exam Neurological exam: Alert, Normal Gait, Oriented x3 - Psychiatric Exam Psychiatric exam: Normal Affect, Normal Mood - Skin Skin Exam: Dry, Intact, Normal Color Discharge Plan - Discharge Medications Prescriptions: oxyCODONE/Acetaminophen [Percocet 5/325 mg Tab] 1 ea PO Q4 PRN #24 tab PRN Reason: Pain, Severe (8-10) - Follow Up Plan Condition: STABLE Disposition: HOME/ ROUTINE Instructions: Renal Failure Diet (DC), Laparoscopic Cholecystectomy (DC), Chronic Bronchitis (DC), Cholecystitis (DC), Cholecystitis (GEN) Additional Instructions: You are being discharged to home. Please follow up with your primary care physician within one week. Do not lift >10 pounds until cleared by Dr. Garcia. You are being sent home with Percocet for pain relief. If you have constipation with the pain medication take a stool softener to prevent straining Call Dr. Garcia's office to follow up in 1-2 weeks. If you experience redness, heat, oozing, or pain at your surgical incision sites , severe nausea and vomiting over extended period of time, please return to the ER. These are all signs of infection. Please keep this medication locked up and away from children and teenagers. Feel better. Referrals: Francisco Garcia MD [Staff Provider] - Jovanni Garrido MD [Primary Care Provider] - Follow up with primary
[2017-12-24] MEDS: Enoxaparin 30 mg Syringe SC SCH (11:35)
[2017-12-24] MEDS: Oxycodone/Acetaminophen 10/325 mg Tab PO PRN (11:49)
--- NOTE | 2017-12-24 18:32 | PN ---
DATE: REASON FOR THE CONSULTATION AND FOLLOWUP: Preop evaluation and postop followup for cholecystectomy. SUBJECTIVE: Not in apparent distress. PHYSICAL EXAMINATION: VITAL SIGNS: Temperature afebrile, heart rate 64, blood pressure 139/84. HEENT: PERRLA. Extraocular muscles intact. NECK: Supple. No carotid bruits or thyromegaly. CHEST: Clear to auscultation. HEART: S1, S2, regular. ABDOMEN: Soft. EXTREMITIES: Clubbing and cyanosis, negative. LABORATORY DATA: Blood workup as follows: WBC , hematocrit , hematocrit 44.1, platelet count 152. Chemistry shows sodium 145, potassium 3.9, chloride 108, carbon dioxide 25, anion gap of 16, BUN 29, and creatinine 2.3. 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 Is status post acute cholecystitis. Is status post cholecystectomy. Uncontrolled hypertension. Is status post laparoscopic cholecystectomy. RECOMMENDATION: Aggressive control of blood pressure. Avoid nephrotoxic medication, DVT prophylaxis. We will increase hydralazine to 50 b.i.d. for better control of blood pressure. Monitor renal function closely. We will increase 50 hydralazine b.i.d. and hold for FBP less than 130. We will follow with you. We will give 25 mg stat dose first now. Thank you, Dr. Benton, for providing us the opportunity in taking care of the patient, Mr. Cristobal. Anai Peña MD
--- NOTE | 2017-12-25 09:44 | PN ---
DATE: 12/23/2017 Taye Cristobal is seen. He is feeling much better. Afebrile. Vital signs are stable. The white count is slightly elevated this morning at 15, but the abdomen is soft and nontender. He feels good. Liver functions are normal. Glucose elevated at 148. As discussed with Dr. Benton because of the nephropathy, we will watch . Increase his diet. Francisco Garcia MD
[2017-12-25] MEDS ORDERED: Oxycodone/Acetaminophen 5/325 mg Tab PO SCH (10:00)
--- NOTE | 2017-12-29 08:27 | OP ---
PROCEDURE DATE: 12/22/2017 PREOPERATIVE DIAGNOSES: Acute chronic cholecystitis and lithiasis. POSTOPERATIVE DIAGNOSES: Acute chronic cholecystitis and lithiasis. OPERATION PERFORMED: Laparoscopic cholecystectomy and intraoperative cholangiogram. DESCRIPTION OF PROCEDURE: In the operating room, patient was identified by the name, name of the procedure, laterality, and my jerrell. After the successful timeout, the abdomen was accessed through a supraumbilical incision followed by a Veress needle, followed by a Visiport. A xiphoid 5 and two lateral 5s were placed. This allowed pulling up on the fundus and then the infundibulum. There was a little bit of bleeding. The peritoneum was swept down. Both the cystic duct and artery were clearly identified. The cystic duct seemed to be large. A clip was placed on the gallbladder side, a large clip, and it was opened, cholangiogram obtained. I could not get it to go into the proximal duct, but I really was not worried about that. There was no residual. It was clearly a long cystic duct as could seen by the valvula and the cystic duct was doubly clipped, as was the artery. After the successful visualization of all the structures going into the gallbladder, seen the liver behind identifying the view of safety, gallbladder was taken off using a Harmonic scalpel and the hook as necessary, placed in the bag and removed. The incision was irrigated and dried. There was nothing untoward. No bleeding, bile, or other structures were damaged. The incisions were closed, after the CO2 was removed, with an interrupted Vicryl, both the umbilicus and the xiphoid. The wounds were injected with Marcaine and incision was closed with Vicryl, followed by subcuticular PDS. Patient was taken to the recovery room in good condition after sponge and needle counts were declared correct. Francisco Garcia MD
== END 2017-12-24 14:42 | disposition home or self-care (01) | DRG 418 ==
LOC: ED 03:22 → ERH 07:30 → 2A 09:07 → 5RNO 18:31 → OBSVTOIN 12-21 15:10 → 5RNO 12-21 22:09 → 5RSO 12-22 07:44
PROVIDERS: ADMIT Surgery; ATTEND Surgery
PROC: BF131ZZ Fluoroscopy of Gallbladder and Bile Ducts using Low Osmolar Contrast (ICD-10-PCS; 2017-12-22)
PROC: 0FT44ZZ Resection of Gallbladder, Percutaneous Endoscopic Approach (ICD-10-PCS; principal; 2017-12-22 07:30)
DX: K81.2 Acute cholecystitis with chronic cholecystitis (principal); N18.4 Chronic kidney disease, stage 4 (severe); N17.9 Acute kidney failure, unspecified; N12 Tubulo-interstitial nephritis, not specified as acute or chronic; N02.8 Recurrent and persistent hematuria with other morphologic changes; C64.9 Malignant neoplasm of unspecified kidney, except renal pelvis; I12.9 Hypertensive chronic kidney disease with stage 1 through stage 4 chronic kidney disease, or unspecified chronic kidney disease; H20.13 Chronic iridocyclitis, bilateral; E78.5 Hyperlipidemia, unspecified; J32.9 Chronic sinusitis, unspecified; F17.200 Nicotine dependence, unspecified, uncomplicated

== ENCOUNTER 2018-03-10 18:38 | Emergency (ER) | payer MEDICARE, OTHER ==
[2018-03-10 18:39] VITALS: BMI 26.9
[2018-03-10] MEDS ORDERED: Tmp-Smz 800 mg-160 mg DS Tab PO STA (18:59)
--- NOTE | 2018-03-10 19:03 | ED PDOC ---
Arrival/HPI - General Chief Complaint: Bite Time Seen by Provider: 03/10/18 18:58 Historian: Patient - History of Present Illness Narrative History of Present Illness (Text): 03/10/18 19:01 57 y/o male, pmh including ckd and htn, nkda, c/o insect bite on the rt. sided neck started last night. Pt. stated that he was bitten by a unknown insect during the sleep last night, itching with mild pain, no fever or chills, no painful neck movement, no headache, no rash, no palpitation, no change in vision , no other medical or psychological complaints. Past Medical History - Provider Review Nursing Documentation Reviewed: Yes - Past History Past History: No Previous - Infectious Disease Hx of Infectious Diseases: None - Tetanus Immunization Tetanus Immunization: Unknown - Reproductive Currently Lactating: No - Cardiac Hx Cardiac Disorders: No Hx Hypertension: Yes - Pulmonary Hx Bronchitis: Yes - Neurological Hx Dizziness: Yes Hx Migraine: Yes - HEENT Hx HEENT Disorder: Yes (CELLULITIS TO LEFT EYE) Other/Comment: sx for deviated septum 4 yrs ago, c/o of having 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 after having deviated septum sx, has had for last 2 yrs recurrent migranes and uvitis, c/o photophobia, blurred vision r eye - Renal Hx Renal Disorder: Yes (RENAL INSUFFICIENCY) Hx Dialysis: No Other/Comment: kidney problem, 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 - Endocrine/Metabolic Hx Endocrine Disorders: No - Hematological/Oncological Hx Blood Transfusions: No Hx Blood Transfusion Reaction: No - Integumentary Hx Dermatological Disorder: (CELLULITIS TO L EYE 06-26-14,TATTOOS) Other/Comment: multiple tatoos - Musculoskeletal/Rheumatological Hx Falls: No - Gastrointestinal Hx Gastrointestinal Disorders: No Other/Comment: colonoscopy - Genitourinary/Gynecological Hx Genitourinary Disorders: Yes Hx Prostate Problems: (pt denies prostate problems) - Psychiatric Hx Psychophysiologic Disorder: No (OCCASIONAL BEERS) Hx Substance Use: No Other/Comment: in last 5 years lost his his job and his house - Surgical History Hx Cholecystectomy: Yes (2015) - Anesthesia Hx Anesthesia: Yes Hx Anesthesia Reactions: No Hx Malignant Hyperthermia: No - Suicidal Assessment Feels Threatened In Home Enviroment: No Family/Social History - Physician Review Nursing Documentation Reviewed: Yes Family/Social History: Unknown Family HX Smoking Status: Never Smoked Hx Alcohol Use: Yes (occasional beer) Hx Substance Use: No Hx Substance Use Treatment: No Allergies/Home Meds Allergies/Adverse Reactions: Allergies No Known Allergies Allergy (Verified 03/10/18 18:50) Home Medications: Home Meds Medication Instructions Recorded Confirmed Lisinopril [Zestril] 10 mg PO DAILY 12/20/17 03/10/18 Prednisone [Charles] 5 mg PO .12/20/17 03/10/18 oxyCODONE/Acetaminophen [Percocet 1 tab PO DAILY 12/20/17 03/10/18 5/325 mg Tab] Review of Systems - Review of Systems Constitutional: absent: Fatigue, Fevers Eyes: absent: Vision Changes ENT: absent: Hearing Changes Respiratory: absent: SOB, Cough Cardiovascular: absent: Chest Pain Gastrointestinal: absent: Abdominal Pain, Nausea, Vomiting Skin: Rash, Skin Lesions, Cellulitis. absent: Pruritis, Laceration, Abscess, Ulcer Neurological: absent: Headache Psychiatric: absent: Anxiety, Depression, Suicidal Ideation Physical Exam Vital Signs Reviewed: Yes Vital Signs Temp Pulse Resp BP Pulse Ox 03/10/18 20:12 68 17 182/95 H 100 03/10/18 19:49 70 184/104 H 03/10/18 18:44 98.9 F 97 H 19 163/111 H 96 Temperature: Afebrile Blood Pressure: Hypertensive Pulse: Regular Respiratory Rate: Normal Appearance: Positive for: Well-Appearing, Non-Toxic, Comfortable Pain Distress: Moderate Mental Status: Positive for: Alert and Oriented X 3 - Systems Exam Head: Present: Atraumatic, Normocephalic Pupils: Present: PERRL Extroacular Muscles: Present: EOMI Conjunctiva: Present: Normal Mouth: Present: Moist Mucous Membranes Neck: Present: Normal Range of Motion Respiratory/Chest: Present: Clear to Auscultation, Good Air Exchange. No: Respiratory Distress, Accessory Muscle Use Cardiovascular: Present: Regular Rate and Rhythm, Normal S1, S2. No: Murmurs Abdomen: No: Tenderness, Distention, Peritoneal Signs Back: Present: Normal Inspection Upper Extremity: Present: Normal Inspection. No: Cyanosis, Edema Lower Extremity: Present: Normal Inspection. No: Edema Neurological: Present: GCS=15, Speech Normal, Motor Func Grossly Intact, Gait Normal, Memory Normal Skin: Present: Warm, Dry, Rashes (Rt. sided trapezius region visible approx. 2cm with central insect bite jerrell with cellulitis noted with no fluctuant abscess, no ulcers, negative kernig and brudzinski signs. ), Normal Color Psychiatric: Present: Alert, Oriented x 3, Normal Insight, Normal Concentration Medical Decision Making ED Course and Treatment: 03/10/18 19:03 -keflex/bactrim ds/benadryl -Pt. didn't take his BP medications, doesn't know which one he is taking except he has antihypertensive medication at home, clonidine 0.2mg po ordered as his BP is 180/104 03/10/18 20:42 -Pt. is vitally stable, eating and drinking well, no change in energy level. -Discharge home with keflex, bactrim ds, zyrtec, continue your pain medication at home, follow up with your own pmd and infectious disease within 2 days, return to the ER for any new or worsening signs or symptoms. - Medication Orders Current Medication Orders: Discontinued Medications Cephalexin Monohydrate (Keflex) 500 mg PO STAT STA PRN Reason: Protocol Stop: 03/10/18 19:00 Last Admin: 03/10/18 19:25 Dose: 500 mg Clonidine HCl (Catapres) 0.2 mg PO STAT STA Stop: 03/10/18 19:32 Last Admin: 03/10/18 19:49 Dose: 0.2 mg MAR Pulse and Blood Pressure Document 03/10/18 19:49 IT (Rec: 03/10/18 19:50 IT [id number]) Pulse Pulse Rate (60-90) 70 Blood Pressure Blood Pressure (100/60-150/90) 184/104 Diphenhydramine HCl (Benadryl) 25 mg PO ONCE ONE Stop: 03/10/18 19:00 Last Admin: 03/10/18 19:25 Dose: 25 mg Trimethoprim/Sulfamethoxazole (Bactrim Ds Tab) 1 tab PO STAT STA PRN Reason: Protocol Stop: 03/10/18 19:00 Last Admin: 03/10/18 19:25 Dose: 1 tab - PA / HELICOPTER TECHNICIAN / Resident Statement MD/DO has reviewed & agrees with the documentation as recorded. Disposition/Present on Arrival - Present on Arrival Any Indicators Present on Arrival: No History of DVT/PE: No History of Uncontrolled Diabetes: No Urinary Catheter: No History of Decub. Ulcer: No History Surgical Site Infection Following: None - Disposition Have Diagnosis and Disposition been Completed?: Yes Diagnosis: Insect bite, Cellulitis Disposition: HOME/ ROUTINE Disposition Time: 19:05 Patient Plan: Discharge Patient Problems: Current Active Problems Problem Status Onset Insect bite Acute Cellulitis Acute Condition: GOOD Discharge Instructions (ExitCare): Cellulitis (ED) Additional Instructions: -Discharge home with keflex, bactrim ds, zyrtec, continue your pain medication at home, follow up with your own pmd and infectious disease within 2 days, return to the ER for any new or worsening signs or symptoms. Prescriptions: Cephalexin [Keflex] 500 mg PO QID #40 capsule Cetirizine HCl [Zyrtec Allergy] 10 mg PO DAILY #10 sgl Sulfamethoxazole/Trimethoprim [Bactrim DS 800 mg-160 mg] 1 tab PO BID #20 tab Referrals: Raúl Hargrove MD [Staff Provider] - Follow up with primary Forms: WORK NOTE
[2018-03-10 20:13] VITALS: PULSE 68; RESP 17; O2SAT 100
[2018-03-10 20:37] VITALS: BP 150/86; TEMP 98.4
== END 2018-03-10 20:37 | disposition home or self-care (01) ==
LOC: ED 18:38
DX: S10.96XA Insect bite of unspecified part of neck, initial encounter (principal); L03.90 Cellulitis, unspecified; W57.XXXA Bitten or stung by nonvenomous insect and other nonvenomous arthropods, initial encounter; I12.9 Hypertensive chronic kidney disease with stage 1 through stage 4 chronic kidney disease, or unspecified chronic kidney disease; N18.9 Chronic kidney disease, unspecified

== ENCOUNTER 2018-03-11 12:59 | Emergency (ER) | payer MEDICARE, OTHER ==
[2018-03-11 13:30] VITALS: O2SAT 98; BMI 25.3
--- NOTE | 2018-03-11 14:26 | ED PDOC ---
Arrival/HPI - General Chief Complaint: Abnormal Skin Integrity Time Seen by Provider: 03/11/18 13:11 Historian: Patient - History of Present Illness Narrative History of Present Illness (Text): 03/11/18 14:57 57-year-old male presents today for reevaluation of abscess/cellulitis in the right side of the neck. Patient was seen in the hospital yesterday and was given Bactrim and Keflex. Patient states the pain is improved but now he is experiencing pain around the right eye. Patient states he has a history of chronic uveitis. Patient states when he woke up today felt an irritation to the right eye. Patient states he used his steroid eyedrops as well as his cycloplegic eyedrops. Patient states he gets a flareup of uveitis twice a year. Patient states he has not been taking his by mouth prednisone as prescribed. Patient states he does not take his eyedrops as he is supposed to. Patient denies fevers or chills. Denies headaches dizziness or weakness. No other complaints Past Medical History - Provider Review Nursing Documentation Reviewed: Yes - Travel History Have you recently traveled outside [place] w/in the past 3 mons?: No - Past History Past History: No Previous - Infectious Disease Hx of Infectious Diseases: None - Tetanus Immunization Tetanus Immunization: Unknown - Reproductive Currently Lactating: No - Cardiac Hx Cardiac Disorders: No Hx Hypertension: Yes - Pulmonary Hx Bronchitis: Yes - Neurological Hx Dizziness: Yes Hx Migraine: Yes - HEENT Hx HEENT Disorder: Yes (CELLULITIS TO LEFT EYE) Other/Comment: sx for deviated septum 4 yrs ago, c/o of having 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 after having deviated septum sx, has had for last 2 yrs recurrent migranes and uvitis, c/o photophobia, blurred vision r eye - Renal Hx Renal Disorder: Yes (RENAL INSUFFICIENCY) Hx Dialysis: No Other/Comment: kidney problem, 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 - Endocrine/Metabolic Hx Endocrine Disorders: No - Hematological/Oncological Hx Blood Transfusions: No Hx Blood Transfusion Reaction: No - Integumentary Hx Dermatological Disorder: (CELLULITIS TO L EYE 06-26-14,TATTOOS) Other/Comment: multiple tatoos - Musculoskeletal/Rheumatological Hx Falls: No - Gastrointestinal Hx Gastrointestinal Disorders: No Other/Comment: colonoscopy - Genitourinary/Gynecological Hx Genitourinary Disorders: Yes Hx Prostate Problems: (pt denies prostate problems) - Psychiatric Hx Psychophysiologic Disorder: No (OCCASIONAL BEERS) Hx Substance Use: No Other/Comment: in last 5 years lost his his job and his house - Surgical History Hx Cholecystectomy: Yes (2015) - Anesthesia Hx Anesthesia: Yes Hx Anesthesia Reactions: No Hx Malignant Hyperthermia: No - Suicidal Assessment Feels Threatened In Home Enviroment: No Family/Social History - Physician Review Nursing Documentation Reviewed: Yes Family/Social History: Unknown Family HX Smoking Status: Never Smoked Hx Alcohol Use: Yes (occasional beer) Hx Substance Use: No Hx Substance Use Treatment: No Allergies/Home Meds Allergies/Adverse Reactions: Allergies No Known Allergies Allergy (Verified 03/11/18 13:36) Home Medications: Home Meds Medication Instructions Recorded Confirmed Lisinopril [Zestril] 10 mg PO DAILY 12/20/17 03/11/18 Prednisone [Charles] 5 mg PO .12/20/17 03/11/18 oxyCODONE/Acetaminophen [Percocet 1 tab PO DAILY 12/20/17 03/11/18 5/325 mg Tab] Review of Systems - Review of Systems Constitutional: absent: Fatigue, Fevers Respiratory: absent: SOB, Cough Cardiovascular: absent: Chest Pain, Palpitations Gastrointestinal: absent: Abdominal Pain, Nausea, Vomiting Skin: Cellulitis. absent: Pruritis Neurological: absent: Headache, Dizziness Psychiatric: absent: Anxiety, Depression, Suicidal Ideation Physical Exam Vital Signs Reviewed: Yes Vital Signs Temp Pulse Resp BP Pulse Ox 03/11/18 13:29 98.2 F 79 18 142/73 98 03/11/18 13:25 98 F 98 Temperature: Afebrile Blood Pressure: Normal Pulse: Regular Respiratory Rate: Normal Appearance: Positive for: Well-Appearing, Non-Toxic, Comfortable Pain Distress: None Mental Status: Positive for: Alert and Oriented X 3 - Systems Exam Head: Present: Atraumatic Pupils: Present: Other (right pupil dilated ) Extroacular Muscles: Present: EOMI Conjunctiva: Present: Injected (right conjunctival injection; no dye uptake. no dendretic lesions, no corneal abrasion. EOMI) Mouth: Present: Moist Mucous Membranes Nose (External): Present: Atraumatic Neck: Present: Normal Range of Motion, Trachea Midline, Other (there is a small dime sized area of erythema and induration; no fluctuance. minimal tenderness; no streaking erythema; full rom of neck. ). No: MIDLINE TENDERNESS Respiratory/Chest: Present: Clear to Auscultation, Good Air Exchange. No: Respiratory Distress, Accessory Muscle Use Cardiovascular: Present: Regular Rate and Rhythm, Normal S1, S2. No: Murmurs Neurological: Present: GCS=15, Speech Normal Skin: Present: Warm, Dry, Normal Color Psychiatric: Present: Alert, Oriented x 3 Medical Decision Making ED Course and Treatment: 03/11/18 14:41 57yr old male presents today with right eye irritation. wants f/u for right sided neck cellulitis/early abscess. pt with hx of uveitis in the past; took steriod eye drops and cycloplegic eye drops; pt states he didnt take his daily prednisone 10mg because he ran out. visual acuity; 20/70 each eye. 20/40 both eyes. right eye + conjunctival injection, right eye with dilated pupil; no dye uptake. no dendritic lesions on the cornea. case discussed with dr. glover (patients eye doctor): he advised prednisone PO daily, continue steriod and cycloplegic eye drops that patient has. NO abx eye drops, f/u in the office tomorrow at 9am. i discussed plan with patient in depth; advised continuing antibiotics Bactrim and Keflex for early abscess/cellulitis on the right side of the neck which is improving. Advised continuing steroid and cycloplegic eyedrops advise taking prednisone daily and follow-up in the eye doctor's office tomorrow at 9 AM Patient verbalizes understanding of discharge instructions and need for immediate followup. all aspects of this case were discussed the attending of record. Impression; uveitis Continue antibiotics as prescribed for cellulitis/early abscess to right posterior neck Continue eye drops prescribed by your eye doctor Follow up with dr. glover tomorrow morning at 9am Follow up with the primary care physician within the next 2 days. return immediately if symptoms worsen,persist or if new symptoms develop. Disposition/Present on Arrival - Present on Arrival Any Indicators Present on Arrival: No History of DVT/PE: No History of Uncontrolled Diabetes: No Urinary Catheter: No History of Decub. Ulcer: No History Surgical Site Infection Following: None - Disposition Have Diagnosis and Disposition been Completed?: Yes Diagnosis: Uveitis Disposition: HOME/ ROUTINE Disposition Time: 14:21 Patient Plan: Discharge Patient Problems: Current Active Problems Problem Status Onset Uveitis Acute Condition: GOOD Discharge Instructions (ExitCare): Uveitis Additional Instructions: Continue antibiotics as prescribed for cellulitis/early abscess to right posterior neck Continue eye drops prescribed by your eye doctor Follow up with dr. glover tomorrow morning at 9am Follow up with the primary care physician within the next 2 days. return immediately if symptoms worsen,persist or if new symptoms develop. Prescriptions: predniSONE [predniSONE Tab] 10 mg PO DAILY #5 tab Referrals: Ke Glover MD [Staff Provider] - Follow up with primary Jeovany Benton MD [Family Provider] - Follow up with primary
[2018-03-11 14:49] VITALS: BP 132/71; PULSE 72; RESP 20; TEMP 98
== END 2018-03-11 14:50 | disposition home or self-care (01) ==
LOC: ED 12:59
DX: H20.9 Unspecified iridocyclitis (principal); I10 Essential (primary) hypertension

== ENCOUNTER 2018-03-18 15:16 | Inpatient (IN) | payer MEDICARE, OTHER ==
[2018-03-18] MEDS ORDERED: cefTRIAXone 1 gm 1 GM/100 ML BAG IVPB STA (16:29)
--- NOTE | 2018-03-18 16:30 | ED PDOC ---
Arrival/HPI - General Historian: Patient - History of Present Illness Time/Duration: 24 hours Symptom Onset: Sudden Symptom Course: Unchanged Quality: Aching, Pressure Severity Level: Moderate Activities at Onset: Rest, Light Context: Home <Marilyn Garcia - Last Filed: 03/20/18 21:58> <Ruchi Deluna - Last Filed: 03/21/18 06:59> - General Chief Complaint: Eye Problem Time Seen by Provider: 03/18/18 16:02 - History of Present Illness Narrative History of Present Illness (Text): 03/18/18 16:22 Pt is a 57 year-old male who presents today for reevaluation of right eye uveitis Patient has been on Bactrim and Keflex since 03/11/18 for an insect bite to the right posterior aspect of the neck. Patient states the pain is better but is experiencing pain around the right eye. Patient states he has a history of chronic uveitis. Patient states when he woke up today felt irritation in the right eye as well as the left despite using the steroid eyedrops he was given. Patient states he gets a flareup of uveitis approximately twice a year. Patient denies fevers or chills. Denies headaches dizziness or weakness or any other complaints (Marilyn Garcia) Past Medical History - Provider Review Nursing Documentation Reviewed: Yes - Travel History Have you recently traveled outside [place] w/in the past 3 mons?: No - Past History Past History: No Previous - Infectious Disease Hx of Infectious Diseases: None - Tetanus Immunization Tetanus Immunization: Unknown - Reproductive Currently Lactating: No - Cardiac Hx Cardiac Disorders: No Hx Hypertension: Yes - Pulmonary Hx Bronchitis: Yes - Neurological Hx Dizziness: Yes Hx Migraine: Yes - HEENT Hx HEENT Disorder: Yes (CELLULITIS TO LEFT EYE) Other/Comment: sx for deviated septum 4 yrs ago, c/o of having 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 after having deviated septum sx, has had for last 2 yrs recurrent migranes and uvitis, c/o photophobia, blurred vision r eye - Renal Hx Renal Disorder: Yes (RENAL INSUFFICIENCY) Hx Dialysis: No Other/Comment: kidney problem, 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 - Endocrine/Metabolic Hx Endocrine Disorders: No - Hematological/Oncological Hx Blood Transfusions: No Hx Blood Transfusion Reaction: No - Integumentary Hx Dermatological Disorder: (CELLULITIS TO L EYE 06-26-14,TATTOOS) Other/Comment: multiple tatoos - Musculoskeletal/Rheumatological Hx Falls: No - Gastrointestinal Hx Gastrointestinal Disorders: No Other/Comment: colonoscopy - Genitourinary/Gynecological Hx Genitourinary Disorders: Yes Hx Prostate Problems: (pt denies prostate problems) - Psychiatric Hx Psychophysiologic Disorder: No (OCCASIONAL BEERS) Hx Substance Use: No Other/Comment: in last 5 years lost his his job and his house - Surgical History Hx Cholecystectomy: Yes (2015) - Anesthesia Hx Anesthesia: Yes Hx Anesthesia Reactions: No Hx Malignant Hyperthermia: No - Suicidal Assessment Feels Threatened In Home Enviroment: No <Marilyn Garcia - Last Filed: 03/20/18 21:58> Family/Social History - Physician Review Nursing Documentation Reviewed: Yes Family/Social History: Unknown Family HX Smoking Status: Never Smoked Hx Alcohol Use: Yes (occasional beer) Hx Substance Use: No Hx Substance Use Treatment: No <Marilyn Garcia - Last Filed: 03/20/18 21:58> Allergies/Home Meds <Marilyn Garcia - Last Filed: 03/20/18 21:58> <Ruchi Deluna - Last Filed: 03/21/18 06:59> Allergies/Adverse Reactions: Allergies No Known Allergies Allergy (Verified 03/18/18 15:50) Home Medications: Home Meds Medication Instructions Recorded Confirmed Lisinopril [Zestril] 10 mg PO DAILY 12/20/17 03/18/18 Prednisone [Charles] 5 mg PO .12/20/17 03/18/18 oxyCODONE/Acetaminophen [Percocet 1 tab PO DAILY 12/20/17 03/18/18 5/325 mg Tab] Review of Systems - Physician Review All systems were reviewed & negative as marked: Yes - Review of Systems Constitutional: Normal Eyes: Normal, Vision Changes (right eye), Photophobia, Eye Pain (right eye and surrounding area) ENT: Normal Respiratory: Normal Cardiovascular: Normal Gastrointestinal: Normal Genitourinary Male: Normal Musculoskeletal: Normal Skin: Normal, Abscess (right neck) Neurological: Normal Endocrine: Normal Hemo/Lymphatic: Normal Psychiatric: Normal <Marilyn Garcia - Last Filed: 03/20/18 21:58> Physical Exam Vital Signs Reviewed: Yes Temperature: Afebrile Blood Pressure: Normal Pulse: Regular Respiratory Rate: Normal Appearance: Positive for: Well-Appearing, Non-Toxic, Comfortable Pain Distress: None Mental Status: Positive for: Alert and Oriented X 3 - Systems Exam Head: Present: Atraumatic, Normocephalic Pupils: Present: PERRL. No: Sluggish, Non-Reactive Extroacular Muscles: Present: EOMI Conjunctiva: Present: Injected Mouth: Present: Moist Mucous Membranes Neck: Present: Normal Range of Motion Respiratory/Chest: Present: Clear to Auscultation, Good Air Exchange. No: Respiratory Distress, Accessory Muscle Use Cardiovascular: Present: Regular Rate and Rhythm, Normal S1, S2. No: Murmurs Abdomen: No: Tenderness, Distention, Peritoneal Signs Back: Present: Normal Inspection Upper Extremity: Present: Normal Inspection. No: Cyanosis, Edema Lower Extremity: Present: Normal Inspection. No: Edema Neurological: Present: GCS=15, CN II-XII Intact, Speech Normal Skin: Present: Warm, Dry, Normal Color, Abscess (Healing abscess on the right posterior aspect of neck). No: Rashes Psychiatric: Present: Alert, Oriented x 3, Normal Insight, Normal Concentration <Marilyn Garcia - Last Filed: 03/20/18 21:58> Vital Signs Pulse Resp BP Pulse Ox 03/18/18 20:31 18 168/101 H 03/18/18 20:08 168/101 H 03/18/18 19:18 86 20 158/101 H 98 03/18/18 15:49 82 18 98 Medical Decision Making <Marilyn Garcia - Last Filed: 03/20/18 21:58> <Ruchi Deluna - Last Filed: 03/21/18 06:59> ED Course and Treatment: 03/18/18 16:30 Impression Pt is a 57 year-old male who presents today for reevaluation of right eye uveitis Patient has been on Bactrim and Keflex since 03/11/18 for an insect bite to the right posterior aspect of the neck. Plan CT of bilateral orbits CT CS w/o contrast labs Progress note Case dw Dr Deluna; pt evaluated at bedside CT reveals right pre-septal orbital cellulitis Dr. Deluna spoke with opthalmologist who suggested Pred Forte and Maxitrol Hospitalist contacted to admit pt Lisinipril 10 mg given prior to transfer to floor (Marilyn Garcia) Patient seen and evaluated with PA. Patient reports history of "insect bite" to neck last week, developed pain to right eye that he says is "exactly like my uveitis". He reports photophobia, blurred vision from right eye. No floaters. On exam, he is able to look in all directions with no pain. No proptosis noted. Some soft tissue swelling noted to lower right lid and periorbital region. No nasal discharge noted. Pupils are reactive. Visual acuity difficult to assess completely in right eye due to discomfort but he is able to read from 5 feet away. There is no veiscular rash noted to nose or face. CT results consistent with PERIORBITAL cellulitis, please clarify from PA's above noted. I discussed exam and patient's history directly with on-call opthamologist covering for patient's opthamologist Dr. Lucien Glover. Patient saw optho earlier this week was placed on Xalatan. He had been taking Pred Forte. Pred forte was continued, patient given Cyclogyl, and Maxitrol recommended. Will admit for inpatient treatment evaluation as patient requires opthalmic evaluation and management of IOP, monitoring of orbital exam and movements, and will require iv antibiotics, ID consultation. Case d.w Dr. Mckinney covering for PMD Dr. Juan M Benton. Please clarify that patient was admitted to PMD Dr. Juan M Benton's service, NOT hospitalist. Dr. De La Garza, ID consulted. No veiscular lesions noted and no pain with eye movements in ED. DDx periorbital cellulitis, sinusitis, uveitis, conjunctivits, keratitis, glaucoma, viral infection, cellulitis. (Ruchi Deluna) - Lab Interpretations Microbiology Results: Microbiology Results 03/18/18 17:10 Blood Blood Culture - Preliminary NO GROWTH AFTER 48 HOURS 03/18/18 16:45 Blood Blood Culture - Preliminary NO GROWTH AFTER 48 HOURS Lab Results: 03/18/18 17:10 03/18/18 17:10 Lab Results 03/18/18 17:10: ESR 45 H 03/18/18 17:10: Sodium 146, Potassium 5.0, Chloride 112 H, Carbon Dioxide 22, Anion Gap 16, BUN 35 H, Creatinine 3.0 H, Est GFR ( Amer) 26, Est GFR ( Non-Af Amer) 22, Random Glucose 88, Calcium 9.2, Total Bilirubin 0.2, AST 20, ALT 31, Alkaline Phosphatase 63, Total Protein 6.7, Albumin 4.0, Globulin 2.7, Albumin/Globulin Ratio 1.5 03/18/18 17:10: WBC 10.1, RBC 4.75, Hgb 13.9 L, Hct 40.6 L, MCV 85.5, MCH 29.3, MCHC 34.2, RDW 12.7, Plt Count 187, MPV 9.1, Gran % 79.2 H, Lymph % (Auto) 14.1 L, [place] % (Auto) 5.3, Eos % (Auto) 1.2 L, Baso % (Auto) 0.2, Gran # 8.00 H, Lymph # (Auto) 1.4, [place] # (Auto) 0.5, Eos # (Auto) 0.1, Baso # (Auto) 0.02 - RAD Interpretation Radiology Orders: 03/18/18 16:28 NECK SOFT TISSUE W/O CONTRAST [CT] Stat ORBITS/ FACIALS W/O CONTRAST [CT] Stat - Medication Orders Current Medication Orders: Acetaminophen (Tylenol 325mg Tab) 650 mg PO Q4H PRN PRN Reason: Fever >100.5 F Amlodipine Besylate (Norvasc) 10 mg PO DAILY [facility] Last Admin: 03/20/18 09:52 Dose: 10 mg MAR Blood Pressure Document 03/20/18 09:52 [facility] (Rec: 03/20/18 09:52 [id number] Blood Pressure Blood Pressure (100/60-150/90) 145/85 Clonidine HCl (Catapres) 0.1 mg PO BID [facility] Last Admin: 03/20/18 17:12 Dose: 0.1 mg MAR Pulse and Blood Pressure Document 03/20/18 17:12 DSZ (Rec: 03/20/18 17:13 [id number] Pulse Pulse Rate (60-90) 75 Blood Pressure Blood Pressure (100/60-150/90) 166/95 Cyclopentolate HCl (Cyclogyl 1% Opht) 1 drop OD TID [facility] Last Admin: 03/20/18 17:40 Dose: 1 drop Famotidine (Pepcid) 40 mg PO HS [facility] Last Admin: 03/20/18 21:42 Dose: 40 mg Meropenem 500 mg/ Sodium (Chloride) 50 mls @ 100 mls/hr IVPB Q12 [facility] PRN Reason: Protocol Stop: 03/27/18 22:01 Last Admin: 03/20/18 21:42 Dose: 100 mls/hr eMAR Start Stop Document 03/20/18 21:42 MJ (Rec: 03/20/18 21:42 [id number]) Intravenous Solution Start Date 03/20/18 Start Time 21:42 End Date 03/20/18 End time 22:12 Total Infusion Time 30 Acyclovir 250 mg/ Sodium (Chloride) 100 mls @ 100 mls/hr IV Q12H [facility] PRN Reason: Protocol Stop: 03/27/18 20:31 Last Admin: 03/20/18 21:50 Dose: 100 mls/hr eMAR Start Stop Document 03/20/18 21:50 MJ (Rec: 03/20/18 21:50 MJ [id number]) Intravenous Solution Start Date 03/20/18 Start Time 21:50 End Date 03/20/18 Latanoprost (Xalatan Opht) 0 ml OD HS [facility] Last Admin: 03/20/18 21:41 Dose: 2.5 ml Methylprednisolone (Solu-Medrol) 40 mg IVP DAILY [facility] Last Admin: 03/20/18 09:51 Dose: 40 mg IVP Administration Document 03/20/18 09:51 DSZ (Rec: 03/20/18 09:52 DSZ [id number]) Charges for Administration # of IVP Administrations 1 Oxycodone/Acetaminophen (Percocet 5/325 Mg Tab) 1 tab PO Q4 PRN PRN Reason: Pain, severe (8-10) Stop: 03/21/18 23:43 Last Admin: 03/20/18 21:43 Dose: 1 tab MAR Pain Assessment Document 03/20/18 21:43 MJ (Rec: 03/20/18 21:43 MJ [id number]) Pain Reassessment Is this a pain reassessment? No Sleep Is patient sleeping during reassessment? No Presence of Pain Presence of Pain Yes Pain Scale Used Pain Scale Used Numeric Description Pain Behavior Moaning Alleviating Factors/Management Medication Techniques Alleviating Factors Medication Prednisolone Acetate (Pred Forte 1% Opht Susp) 0 ml OD Q6H [facility] Last Admin: 03/20/18 21:41 Dose: 1 drop Discontinued Medications Cyclopentolate HCl (Cyclogyl 1% Opht) 1 drop OD ONCE ONE Stop: 03/18/18 18:18 Last Admin: 03/18/18 18:42 Dose: 1 drop Ceftriaxone Sodium (Rocephin 1 Gram Ivpb) 1 gm in 100 mls @ 200 mls/hr IVPB ONCE STA PRN Reason: Protocol Stop: 03/18/18 16:58 Last Admin: 03/18/18 17:54 Dose: 200 mls/hr eMAR Start Stop Document 03/18/18 17:54 SS (Rec: 03/18/18 17:54 SS [id number]) Intravenous Solution Start Date 03/18/18 Start Time 17:54 Vancomycin HCl (Vancomycin 1gm) 1 gm in 250 mls @ 167 mls/hr IVPB STAT STA PRN Reason: Protocol Stop: 03/18/18 21:45 Last Admin: 03/18/18 22:05 Dose: 167 mls/hr eMAR Start Stop Document 03/18/18 22:05 BN (Rec: 03/18/18 22:05 BN [id number]) Intravenous Solution Start Date 03/18/18 Start Time 22:05 Sodium Chloride (Sodium Chloride 0.9%) 1,000 mls @ 100 mls/hr IV .Q10H [facility] Stop: 03/19/18 17:59 Last Admin: 03/19/18 08:45 Dose: 100 mls/hr eMAR Start Stop Document 03/19/18 08:45 SES (Rec: 03/19/18 08:45 SES [id number]) Intravenous Solution Start Date 03/19/18 Start Time 08:45 Prednisolone Acetate (Pred Forte 1% Opht Susp) 0 ml OD STAT STA Stop: 03/18/18 18:17 Last Admin: 03/18/18 18:40 Dose: 2 drop Prednisolone Acetate (Pred Forte 1% Opht Susp) 0 ml OD BID [facility] Last Admin: 03/19/18 17:11 Dose: 2 drop Disposition/Present on Arrival - Present on Arrival Any Indicators Present on Arrival: Yes History of DVT/PE: No History of Uncontrolled Diabetes: No Urinary Catheter: No History of Decub. Ulcer: No History Surgical Site Infection Following: None - Disposition Have Diagnosis and Disposition been Completed?: Yes Patient Plan: Admission <Marilyn Garcia - Last Filed: 03/20/18 21:58> - Present on Arrival Any Indicators Present on Arrival: No - Disposition Have Diagnosis and Disposition been Completed?: Yes Disposition Time: 17:49 Patient Plan: Admission <Ruchi Deluna - Last Filed: 03/21/18 06:59> - Disposition Diagnosis: Periorbital cellulitis of right eye, Uveitis, Chronic renal failure, Preseptal cellulitis Disposition: HOSPITALIZED Patient Problems: Current Active Problems Problem Status Onset Chronic renal failure Acute Periorbital cellulitis of right eye Acute Preseptal cellulitis Acute Uveitis Acute Condition: FAIR
--- NOTE | 2018-03-18 17:10 | CT ---
PROCEDURE: CT ORBITS WITHOUT CONTRAST. HISTORY: right orbital swelling COMPARISON: None available. TECHNIQUE: Axial CT images of the orbits were obtained. Coronal and sagittal reformats were generated. Radiation dose: Total exam DLP = 793 mGy-cm. This CT exam was performed using one or more of the following dose reduction techniques: Automated exposure control, adjustment of the mA and/or kV according to patient size, and/or use of iterative reconstruction technique. FINDINGS: RIGHT ORBIT: RIGHT BONY ORBIT: Normal. RIGHT INTRAORBITAL STRUCTURES: Globe: Normal. Extraocular muscles: Normal. Post septal space: Normal. Optic Nerve: Normal. Lacrimal Apparatus: Normal. RIGHT PRESEPTAL SOFT TISSUES: There is severe soft tissue swelling consistent with preseptal cellulitis. There is more severe involvement of the lower eyelid. LEFT ORBIT: LEFT BONY ORBIT: Normal. LEFT INTRAORBITAL STRUCTURES: Globe: Normal. Extraocular muscles: Normal. Post septal space: Normal Optic Nerve: Normal. . Lacrimal Apparatus: Normal. LEFT PRESEPTAL SOFT TISSUES: Mild soft tissue swelling OTHER: Mild mucosal thickening in the maxillary sinuses. Previous maxillary sinus surgery and resection of the middle terminates IMPRESSION: Severe soft tissue swelling of the right eye consistent with preseptal cellulitis. Mild swelling on the left. No intraorbital inflammation.
--- NOTE | 2018-03-18 17:13 | CT ---
PROCEDURE: CT NECK WITHOUT CONTRAST HISTORY: right neck swelling COMPARISON: None. TECHNIQUE: CT of the neck without intravenous contrast. Coronal and sagittal reformats generated. Radiation dose: DLP 469 mGy-cm This CT exam was performed using one or more of the following dose reduction techniques: Automated exposure control, adjustment of the mA and/or kV according to patient size, and/or use of iterative reconstruction technique. FINDINGS: NASOPHARYNX: Unremarkable. SUPRAHYOID NECK: Unremarkable oropharynx, oral cavity, parapharyngeal space and retropharyngeal space. INFRAHYOID NECK: Unremarkable larynx, hypopharynx, and supraglottic space. Vocal cords intact. MASS: None. GLANDS: Parotid and submandibular glands unremarkable. Normal size thyroid gland, without nodule. LYMPH NODES: Normal. No lymphadenopathy. CERVICAL SPINE: No fracture or focal lesion. OTHER FINDINGS: None. IMPRESSION: Unremarkable non-contrast enhanced CT of the neck.
[2018-03-18 17:26] LABS: BASO # 0.02 K/mm3 (0.0-2.0); BASO % 0.2 % (0.0-3.0); EOS # 0.1 (0.0-0.7); EOS % 1.2 % (1.5-5.0); GRAN % 79.2 % (50.0-68.0); HEMOGLOBIN 13.9 g/dL (14.0-18.0); LYMPH # 1.4 (1.2-3.4); LYMPH % 14.1 % (22.0-35.0); MEAN CELL VOLUME 85.5 fl (80.0-105.0); MEAN CORPUSCULAR HEMOGLOBIN 29.3 pg (25.0-35.0); MEAN CORPUSCULAR HGB CONC 34.2 g/dl (31.0-37.0); MEAN PLATELET VOLUME 9.1 fl (7.0-11.0); MONO # 0.5 (0.1-0.6); MONO % 5.3 % (1.0-6.0); RBC 4.75 10^6/uL (3.5-6.1); RED CELL DISTRIBUTION WIDTH 12.7 % (11.5-14.5); WHITE BLOOD COUNT 10.1 10^3/ul (4.5-11.0)
[2018-03-18] MEDS ORDERED: Vancomycin 1gm in NS 250ml 1 GM/250 ML BAG IVPB STA ×2 (17:36→20:16)
[2018-03-18 17:44] LABS: ALB/GLOB RATIO 1.5 (1.1-1.8); CALCIUM 9.2 mg/dL (8.4-10.5)
[2018-03-18] MEDS ORDERED: CYCLOPENTOLATE 1% OD ONE ×2 (17:51→18:17)
[2018-03-18] MEDS ORDERED: PrednisoLONE 1% Opht Susp(5 ml) OD STA (18:16)
[2018-03-18 20:38] VITALS: BMI 27.7
[2018-03-18] MEDS: Latanoprost 2.5 ml Opht Soln OD SCH (22:07)
[2018-03-18] MEDS: Meropenem 500 MG in Sodium Chloride 0.9% 50 ML IVPB SCH (22:07)
[2018-03-18] MEDS: Acyclovir 250 MG in Sodium Chloride 0.9% 100 ML IV SCH (22:07)
[2018-03-19] MEDS ORDERED: Sodium Chloride 0.9% 1,000 ML IV SCH (08:00)
[2018-03-19] MEDS: Oxycodone/Acetaminophen 5/325 mg Tab PO PRN ×2 (08:45→20:38)
[2018-03-19] MEDS: Acyclovir 250 MG in Sodium Chloride 0.9% 100 ML IV SCH ×2 (09:37→20:38)
[2018-03-19] MEDS: MethylPREDNISolone 40 mg Vial IVP SCH (09:37)
--- NOTE | 2018-03-19 10:09 | CP.PCM.HP ---
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 Patient reports he had a spider bite last week on his R neck and went to the ED on 03/10/19. He was given Bactrim and Keflex and was sent home. The next day he went to the ED complaining of R eye pain. He tried to used his steroid drops without any relief. Dr. Glover, patient's valuation manager, recommended PO steroids, steroid and cycloplegic eye drops. Patient saw Dr. Glover on Monday last week and reports the eye pain has not gone away since then. Patient states he gets a clear drainage from his R eye with some blurry vision. He also admitted to draining the spider bite on his R neck at home. He is not sure whether or not if he touched his eye afterward. He usually gets uveitis about twice per year. Patient has been on chronic PO Prednisone for his uveitis which has been tapered down as outpatient to 10mg PO daily. He denies fevers, chills, chest pain, shortness of breath, nausea/vomiting/diarrhea, numbness/tingling, recent travel or sick contacts. 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 Drinks alcohol occasionally Present on Admission - Present on Admission Any Indicators Present on Admission: No Review of Systems - Review of Systems All systems: reviewed and no additional remarkable complaints except Review of Systems: + R eye pain, R blurry vision, R eye clear drainage. Past Patient History - Infectious Disease Hx of Infectious Diseases: None - Tetanus Immunizations Tetanus Immunization: Unknown - Past Medical History & Family History Past Medical History?: Yes - Past Social History Smoking Status: Never Smoked Alcohol: Occasional Drugs: Denies Home Situation {Lives}: With Family - CARDIAC Hx Cardiac Disorders: No Hx Hypertension: Yes - PULMONARY Hx Bronchitis: Yes - NEUROLOGICAL Hx Dizziness: Yes Hx Migraine: Yes - HEENT Hx HEENT Problems: Yes (CELLULITIS TO LEFT EYE) Other/Comment: sx for deviated septum 4 yrs ago, c/o of having 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 after having deviated septum sx, has had for last 2 yrs recurrent migranes and uvitis, c/o photophobia, blurred vision r eye - RENAL Hx Chronic Kidney Disease: Yes (RENAL INSUFFICIENCY) Hx Dialysis: No Other/Comment: kidney problem, 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 - ENDOCRINE/METABOLIC Hx Endocrine Disorders: No - HEMATOLOGICAL/ONCOLOGICAL Hx Blood Transfusions: No Hx Blood Transfusion Reaction: No - INTEGUMENTARY Hx Dermatological Problems: (CELLULITIS TO L EYE 06-26-14,TATTOOS) Other/Comment: multiple tatoos - MUSCULOSKELETAL/RHEUMATOLOGICAL Hx Falls: No - GASTROINTESTINAL Hx Gastrointestinal Disorders: No Other/Comment: colonoscopy - GENITOURINARY/GYNECOLOGICAL Hx Genitourinary Disorders: Yes Hx Prostate Problems: (pt denies prostate problems) - PSYCHIATRIC Hx Psychophysiologic Disorder: No (OCCASIONAL BEERS) Hx Substance Use: No Other/Comment: in last 5 years lost his his job and his house - SURGICAL HISTORY Hx Cholecystectomy: Yes (2015) - ANESTHESIA Hx Anesthesia: Yes Hx Anesthesia Reactions: No Hx Malignant Hyperthermia: No Meds Allergies/Adverse Reactions: Allergies Allergy/AdvReac Type Severity Reaction Status Date / Time No Known Allergies Allergy Verified 03/18/18 15:50 Physical Exam - Constitutional Appears: No Acute Distress - Head Exam Head Exam: ATRAUMATIC, NORMAL INSPECTION, NORMOCEPHALIC - Eye Exam Eye Exam: Conjunctival injection, EOMI, Periorbital swelling Pupil Exam: PERRL - ENT Exam ENT Exam: Mucous Membranes Moist - Neck Exam Additional comments: R neck lesion, no drainage - Respiratory Exam Respiratory Exam: Clear to Auscultation Bilateral, NORMAL BREATHING PATTERN - Cardiovascular Exam Cardiovascular Exam: REGULAR RHYTHM, +S1, +S2. absent: Gallop, Rubs, Systolic Murmur - GI/Abdominal Exam GI & Abdominal Exam: Normal Bowel Sounds, Soft. absent: Guarding, Rebound, Rigid, Tenderness - Extremities Exam Extremities exam: Positive for: normal inspection. 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 orbit showed periorbital cellulitis. This can be secondary to R uveitis versus infection secondary to spider bite. Plan: 1. Cellulitis of R eye - Secondary to IgG4 uveitis v. MRSA infection from spider bite v. other infectious process - CT neck was negative for acute pathology - CT of R orbit showed R eye soft tissue preceptal cellulitis - ID consulted - Work up pending: HIV, HSV, CMV, HHV8, Varicella - Tylenol prn fever - Acyclovir, Vancomyzin and Merrem - Solumedrol 40IVP daily - pain control - Continue Steroid eye drops - Ophthalmology consulted- pt usually sees Dr. Glover as outpatient 2. CASS on CKD - Can be secondary to medications such as Bactrim - Cr: 3.0, baseline: ~2.3 - Hold Lisinopril for now - IV hydration- NS@100 - Avoid nephrotoxic medications - Renally dose medications 3. HTN - Hold Lisinopril - Start Norvasc and Clonidine BID GI ppx: Pepcid DVT ppx: SCDs Case seen, discussed and reviewed with Dr. Serenity Sanchez PGY2 - Date & Time Date: 03/19/18 Time: 09:00 <Jeovany Benton - Last Filed: 03/20/18 18:05> Results - Vital Signs Recent Vital Signs: Last Vital Signs Temp 98.7 F 03/20/18 13:49 Pulse 75 03/20/18 17:12 Resp 18 03/20/18 13:49 BP 166/95 H 03/20/18 17:12 Pulse Ox 100 03/20/18 13:49 - Labs Result Diagrams: 03/18/18 17:10 03/20/18 07:00 Labs: Laboratory Results - last 24 hr 03/19/18 03/19/18 03/19/18 07:15 07:30 07:30 Sodium Potassium Chloride Carbon Dioxide Anion Gap BUN Creatinine Est GFR ( Amer) Est GFR (Non-Af Amer) Random Glucose Calcium RPR Nonreactive T.pallidum Ab (FTA-ABS) Nonreactive HSV Source Description HIV 1&2 Ag/Ab, 4th Gen Nonreactive VZV IgG Antibody 1601.00 03/19/18 03/20/18 07:30 07:00 Sodium 145 Potassium 5.0 Chloride 110 H Carbon Dioxide 22 Anion Gap 18 BUN 33 H Creatinine 2.4 H Est GFR ( Amer) 34 Est GFR (Non-Af Amer) 28 Random Glucose 131 H Calcium 8.9 RPR T.pallidum Ab (FTA-ABS) HSV Source Description Plasma HIV 1&2 Ag/Ab, 4th Gen VZV IgG Antibody Assessment & Plan - Assessment and Plan (Free Text) Plan: Pt seen and examined by me. I reviewed the notes of the medical educator and I agree with the note. I reviewed the labs and medications. Pt is well known to me and had run out of his prednisone. 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 I started the pt on steroids and held his Lisinopril. He has a small abscess on the R neck and has been on IV Abx. I reviewed his old labs and medical record. He has been started on IVF. Will repeat labs in am.
[2018-03-19] MEDS: Meropenem 500 MG in Sodium Chloride 0.9% 50 ML IVPB SCH ×2 (11:50→22:24)
[2018-03-19] MEDS ORDERED: PrednisoLONE 1% Opht Susp(5 ml) OD SCH (18:00)
--- NOTE | 2018-03-19 20:19 | CP.PCM.CON ---
History of Present Illness - History of Present Illness History of Present Illness: 57 year old male with PMH of chronic eye uveitis, HTN, renal cell carcinoma S/P chemotherapy, history of IgG nephritis [place] [facility] [place] swelling of the right eye area and right eye redness and pain. He has been using eyedrops with steroids but was not able to use the eyedrops for several days prior to the admission. He denies fever or chills, no headache, had some blurring of vision, no nausea or vomiting, no chest pain, no cough but had some rhinorrhea but no epistaxis, no abdominal pain, no diarrhea, no dysuria. CT head showed preseptal cellulitis. Infectious diseases consult is requested to further evaluate and manage. Review of Systems - Review of Systems All systems: reviewed and no additional remarkable complaints except (as per HPI ) Past Patient History - Infectious Disease Hx of Infectious Diseases: None - Tetanus Immunizations Tetanus Immunization: Unknown - Past Medical History & Family History Past Medical History?: Yes - Past Social History Smoking Status: Never Smoked - CARDIAC Hx Cardiac Disorders: No Hx Hypertension: Yes - PULMONARY Hx Bronchitis: Yes - NEUROLOGICAL Hx Dizziness: Yes Hx Migraine: Yes - HEENT Hx HEENT Problems: Yes (CELLULITIS TO LEFT EYE) Other/Comment: sx for deviated septum 4 yrs ago, c/o of having 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 after having deviated septum sx, has had for last 2 yrs recurrent migranes and uvitis, c/o photophobia, blurred vision r eye - RENAL Hx Chronic Kidney Disease: Yes (RENAL INSUFFICIENCY) Hx Dialysis: No Other/Comment: kidney problem, 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 - ENDOCRINE/METABOLIC Hx Endocrine Disorders: No - HEMATOLOGICAL/ONCOLOGICAL Hx Blood Transfusions: No Hx Blood Transfusion Reaction: No - INTEGUMENTARY Hx Dermatological Problems: (CELLULITIS TO L EYE 06-26-14,TATTOOS) Other/Comment: multiple tatoos - MUSCULOSKELETAL/RHEUMATOLOGICAL Hx Falls: No - GASTROINTESTINAL Hx Gastrointestinal Disorders: No Other/Comment: colonoscopy - GENITOURINARY/GYNECOLOGICAL Hx Genitourinary Disorders: Yes Hx Prostate Problems: (pt denies prostate problems) - PSYCHIATRIC Hx Psychophysiologic Disorder: No (OCCASIONAL BEERS) Hx Substance Use: No Other/Comment: in last 5 years lost his his job and his house - SURGICAL HISTORY Hx Cholecystectomy: Yes (2015) - ANESTHESIA Hx Anesthesia: Yes Hx Anesthesia Reactions: No Hx Malignant Hyperthermia: No Meds Allergies/Adverse Reactions: Allergies Allergy/AdvReac Type Severity Reaction Status Date / Time No Known Allergies Allergy Verified 03/18/18 15:50 - Medications Medications: Current Medications Acetaminophen (Tylenol 325mg Tab) 650 mg PO Q4H PRN PRN Reason: Fever >100.5 F Amlodipine Besylate (Norvasc) 10 mg PO DAILY [facility] Clonidine HCl (Catapres) 0.1 mg PO BID [facility] Meropenem 500 mg/ Sodium (Chloride) 50 mls @ 100 mls/hr IVPB Q12 [facility] PRN Reason: Protocol Stop: 03/27/18 22:01 Last Admin: 03/18/18 22:07 Dose: 100 mls/hr Acyclovir 250 mg/ Sodium (Chloride) 100 mls @ 100 mls/hr IV Q12H [facility] PRN Reason: Protocol Stop: 03/27/18 20:31 Last Admin: 03/18/18 22:07 Dose: 100 mls/hr Sodium Chloride (Sodium Chloride 0.9%) 1,000 mls @ 100 mls/hr IV .Q10H [facility] Stop: 03/19/18 17:59 Last Admin: 03/19/18 08:45 Dose: 100 mls/hr Latanoprost (Xalatan Opht) 0 ml OD HS [facility] Last Admin: 03/18/18 22:07 Dose: 2.5 ml Methylprednisolone (Solu-Medrol) 40 mg IVP DAILY [facility] Oxycodone/Acetaminophen (Percocet 5/325 Mg Tab) 1 tab PO Q4 PRN PRN Reason: Pain, severe (8-10) Stop: 03/21/18 23:43 Last Admin: 03/19/18 08:45 Dose: 1 tab Physical Exam - Constitutional Appears: Chronically Ill - Head Exam Head Exam: NORMAL INSPECTION - Eye Exam Additional comments: decreased swelling of the right eye area and decreased redness of right eye - ENT Exam ENT Exam: Mucous Membranes Moist - Neck Exam Neck exam: Negative for: Meningismus - Respiratory Exam Respiratory Exam: Decreased Breath Sounds - Cardiovascular Exam Cardiovascular Exam: +S1, +S2 - GI/Abdominal Exam GI & Abdominal Exam: Soft. absent: Tenderness Results - Vital Signs Recent Vital Signs: Last Vital Signs Temp 97.8 F 03/19/18 06:00 Pulse 76 03/19/18 06:00 Resp 18 03/19/18 06:00 BP 158/96 H 03/19/18 06:00 Pulse Ox 93 L 03/19/18 06:00 - Labs Result Diagrams: 03/18/18 17:10 03/18/18 17:10 Assessment & Plan - Assessment and Plan (Free Text) Plan: Assessment Right eye uveitis with preseptal cellulitis chronic eye uveitis HTN renal cell carcinoma S/P chemotherapy history of IgG nephritis Plan Patient given a dose of IV Vancomycin and started Merrem and Acyclovir pending blood c, HSV, VZV serologies, RPR, CMV and HSV PCR will monitor clinically
[2018-03-19] MEDS: Latanoprost 2.5 ml Opht Soln OD SCH (21:13)
--- NOTE | 2018-03-20 06:35 | CP.PCM.PN ---
<Neha Sanchez - Last Filed: 03/20/18 08:58> Subjective - Date & Time of Evaluation Date of Evaluation: 03/20/18 Time of Evaluation: 07:34 - Subjective Subjective: Progress Note for David Durant PGY2 Patient seen and examined at bedside. There were no acute overnight events as per nursing staff. Patient states he had one episode of non-bloody diarrhea this morning. Otherwise he reports feeling "much better". He still complains of blurry vision and some swelling of the R eye, but says it has improved. He denies chest pain, shortness of breath, nausea/vomiting, fever/chills, dysuria or hematuria. Objective - Vital Signs/Intake and Output Vital Signs (last 24 hours): Temp Pulse Resp BP Pulse Ox 98.4 F 61 18 165/97 H 96 03/19/18 22:00 03/20/18 05:06 03/19/18 22:00 03/20/18 05:06 03/19/18 22:00 Intake and Output: 03/19/18 03/20/18 18:59 06:59 Intake Total 600 900 Balance 600 900 - Medications Medications: Current Medications Acetaminophen (Tylenol 325mg Tab) 650 mg PO Q4H PRN PRN Reason: Fever >100.5 F Amlodipine Besylate (Norvasc) 10 mg PO DAILY [facility] Last Admin: 03/19/18 09:36 Dose: 10 mg Clonidine HCl (Catapres) 0.1 mg PO BID [facility] Last Admin: 03/20/18 05:06 Dose: 0.1 mg Famotidine (Pepcid) 40 mg PO HS [facility] Last Admin: 03/19/18 21:13 Dose: 40 mg Meropenem 500 mg/ Sodium (Chloride) 50 mls @ 100 mls/hr IVPB Q12 [facility] PRN Reason: Protocol Stop: 03/27/18 22:01 Last Admin: 03/19/18 22:24 Dose: 100 mls/hr Acyclovir 250 mg/ Sodium (Chloride) 100 mls @ 100 mls/hr IV Q12H [facility] PRN Reason: Protocol Stop: 03/27/18 20:31 Last Admin: 03/19/18 20:38 Dose: 100 mls/hr Latanoprost (Xalatan Opht) 0 ml OD [facility] Last Admin: 03/19/18 21:13 Dose: 2.5 ml Methylprednisolone (Solu-Medrol) 40 mg IVP DAILY [facility] Last Admin: 03/19/18 09:37 Dose: 40 mg Oxycodone/Acetaminophen (Percocet 5/325 Mg Tab) 1 tab PO Q4 PRN PRN Reason: Pain, severe (8-10) Stop: 03/21/18 23:43 Last Admin: 03/19/18 20:38 Dose: 1 tab Prednisolone Acetate (Pred Forte 1% Opht Susp) 0 ml OD BID [facility] Last Admin: 03/19/18 17:11 Dose: 2 drop - Constitutional Appears: No Acute Distress - Head Exam Head Exam: ATRAUMATIC, NORMAL INSPECTION, NORMOCEPHALIC - Eye Exam Eye Exam: EOMI, Periorbital swelling (greater inferior), PERRL Pupil Exam: NORMAL ACCOMODATION, PERRL - ENT Exam ENT Exam: Mucous Membranes Moist - Neck Exam Neck Exam: Full ROM Additional comments: R neck abscess about 2 cm diameter with mild erythema. No drainage - Respiratory Exam Respiratory Exam: Clear to Ausculation Bilateral, NORMAL BREATHING PATTERN. absent: Rales, Rhonchi, Wheezes - Cardiovascular Exam Cardiovascular Exam: REGULAR RHYTHM, +S1, +S2. absent: Gallop, Rubs, Murmur - GI/Abdominal Exam GI & Abdominal Exam: Soft, Normal Bowel Sounds. absent: Rigid, Tenderness, Mass , Rebound - Extremities Exam Extremities Exam: Normal Inspection. 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 This can be secondary to IgG4 versus infection from transmission of bacteria from spider bite in his R neck. Plan: 1. Uveitis of R eye - Secondary to IgG4 uveitis v. infection from spider bite - Preseptal cellulitis noted on CT of R orbit. No abscess or inflammation seen on CT of neck. - Continue Acyclovir, Merrem and Vancomycin - ID consult- will rule out other etiologies such as HIV, HSV, CMV, Varicella and HHV 8 (which are pending) - Ophthalmology consulted - Continue Solu-medrol 40 daily - As per ophthalmology- continue steroid eye drops in R eye 4x per day, cyclogel drop in R eye TID as well as Latanoprost drops to both eyes daily 2. Diarrhea (one episode) - can be secondary to antibiotic use - Will continue to monitor - If diarrhea continues- check for c.diff - Continue IV hydration 3. CASS on CKD stage IV (improved) - Can be secondary to medications such as Bactrim v. infection - Cr is now 2.4 from 3.0 baseline: ~2.3 - Avoid nephrotoxic agents - Renally dose medications - Continue IV hydration 3. HTN - Hold Lisinopril (home med)- will re-start upon discharge - Norvasc and Clonidine BID GI ppx: Pepcid DVT ppx: SCDs- patient also ambulating Dispo: Patient improving. Possible plan for discharge tomorrow. Case seen, discussed and reviewed with Dr. Serenity Sanchez PGY2 <Jeovany Benton S - Last Filed: 03/20/18 18:22> Objective - Vital Signs/Intake and Output Vital Signs (last 24 hours): Temp Pulse Resp BP Pulse Ox 98.7 F 75 18 166/95 H 100 03/20/18 13:49 03/20/18 17:12 03/20/18 13:49 03/20/18 17:12 03/20/18 13:49 Intake and Output: 03/20/18 03/20/18 06:59 18:59 Intake Total 900 960 Balance 900 960 - Medications Medications: Current Medications Acetaminophen (Tylenol 325mg Tab) 650 mg PO Q4H PRN PRN Reason: Fever >100.5 F Amlodipine Besylate (Norvasc) 10 mg PO DAILY [facility] Last Admin: 03/20/18 09:52 Dose: 10 mg Clonidine HCl (Catapres) 0.1 mg PO BID [facility] Last Admin: 03/20/18 17:12 Dose: 0.1 mg Cyclopentolate HCl (Cyclogyl 1% Opht) 1 drop OD TID [facility] Last Admin: 03/20/18 17:40 Dose: 1 drop Famotidine (Pepcid) 40 mg PO HS [facility] Last Admin: 03/19/18 21:13 Dose: 40 mg Meropenem 500 mg/ Sodium (Chloride) 50 mls @ 100 mls/hr IVPB Q12 [facility] PRN Reason: Protocol Stop: 03/27/18 22:01 Last Admin: 03/20/18 11:00 Dose: 100 mls/hr Acyclovir 250 mg/ Sodium (Chloride) 100 mls @ 100 mls/hr IV Q12H [facility] PRN Reason: Protocol Stop: 03/27/18 20:31 Last Admin: 03/20/18 09:52 Dose: 100 mls/hr Latanoprost (Xalatan Opht) 0 ml OD HS [facility] Last Admin: 03/19/18 21:13 Dose: 2.5 ml Methylprednisolone (Solu-Medrol) 40 mg IVP DAILY [facility] Last Admin: 03/20/18 09:51 Dose: 40 mg Oxycodone/Acetaminophen (Percocet 5/325 Mg Tab) 1 tab PO Q4 PRN PRN Reason: Pain, severe (8-10) Stop: 03/21/18 23:43 Last Admin: 03/19/18 20:38 Dose: 1 tab Prednisolone Acetate (Pred Forte 1% Opht Susp) 0 ml OD Q6H [facility] Last Admin: 03/20/18 14:51 Dose: 1 drop - Labs Labs: 03/20/18 07:00 Assessment and Plan - Assessment and Plan (Free Text) Plan: Pt seen and examined by me. I reviewed the notes of the medical supply technician and I agree with the note. I reviewed the labs and medications. Pt with improving Cr. Abscess is also better on the R neck. Uveitus has improved. On Abx. Appreciate ID input
[2018-03-20 07:45] LABS: CALCIUM 8.9 mg/dL (8.4-10.5)
--- NOTE | 2018-03-20 08:38 | CON ---
DATE: 03/19/2018 HISTORY OF PRESENT ILLNESS: Mr. Cristobal is a 57-year-old white male well known to me with bilateral uveitis, admitted for periorbital cellulitis. PHYSICAL EXAMINATION: EYES: Visual acuity: Vision was 20/100 in the right eye, 20/30 in the left eye. The right conjunctiva was markedly injected. There was 1+ flare and cells. Extraocular movements were normal. Lens exam showed a cataract in the right eye, greater than left eye. Fundus exam showed vitreitis in the right eye. ASSESSMENT: My assessment is that, Mr. Cristobal has iritis in the right eye. I put him on Pred Forte one drop to the right eye 4 times a day, Cyclogyl one drop to the right eye 3 times a day and Xalatan one drop in both eyes. An hour of sleep, I told him to come to see me when he is discharged. Ke Glover MD
[2018-03-20] MEDS: CYCLOPENTOLATE 1% OD SCH ×3 (09:45→17:40)
[2018-03-20] MEDS: Meropenem 500 MG in Sodium Chloride 0.9% 50 ML IVPB SCH ×3 (09:46→21:42)
[2018-03-20] MEDS: PrednisoLONE 1% Opht Susp(5 ml) OD SCH ×3 (09:48→21:41)
[2018-03-20] MEDS: MethylPREDNISolone 40 mg Vial IVP SCH (09:51)
[2018-03-20] MEDS: Acyclovir 250 MG in Sodium Chloride 0.9% 100 ML IV SCH ×2 (09:52→21:50)
--- NOTE | 2018-03-20 16:41 | CP.PCM.PN ---
Subjective - Date & Time of Evaluation Date of Evaluation: 03/20/18 Time of Evaluation: 11:55 - Subjective Subjective: Patient is feeling better, no fevers, much improved swelling of the right eye, no nausea, no diarrhea. Objective - Vital Signs/Intake and Output Vital Signs (last 24 hours): Temp Pulse Resp BP Pulse Ox 97.6 F 64 20 145/85 99 03/20/18 08:24 03/20/18 08:24 03/20/18 08:24 03/20/18 09:52 03/20/18 08:24 Intake and Output: 03/20/18 03/20/18 06:59 18:59 Intake Total 900 Balance 900 - Medications Medications: Current Medications Acetaminophen (Tylenol 325mg Tab) 650 mg PO Q4H PRN PRN Reason: Fever >100.5 F Amlodipine Besylate (Norvasc) 10 mg PO DAILY [facility] Last Admin: 03/20/18 09:52 Dose: 10 mg Clonidine HCl (Catapres) 0.1 mg PO BID [facility] Last Admin: 03/20/18 05:06 Dose: 0.1 mg Cyclopentolate HCl (Cyclogyl 1% Opht) 1 drop OD TID [facility] Last Admin: 03/20/18 09:45 Dose: 1 drop Famotidine (Pepcid) 40 mg PO HS [facility] Last Admin: 03/19/18 21:13 Dose: 40 mg Meropenem 500 mg/ Sodium (Chloride) 50 mls @ 100 mls/hr IVPB Q12 [facility] PRN Reason: Protocol Stop: 03/27/18 22:01 Last Admin: 03/19/18 22:24 Dose: 100 mls/hr Acyclovir 250 mg/ Sodium (Chloride) 100 mls @ 100 mls/hr IV Q12H [facility] PRN Reason: Protocol Stop: 03/27/18 20:31 Last Admin: 03/20/18 09:52 Dose: 100 mls/hr Latanoprost (Xalatan Opht) 0 ml OD HS [facility] Last Admin: 03/19/18 21:13 Dose: 2.5 ml Methylprednisolone (Solu-Medrol) 40 mg IVP DAILY [facility] Last Admin: 03/20/18 09:51 Dose: 40 mg Oxycodone/Acetaminophen (Percocet 5/325 Mg Tab) 1 tab PO Q4 PRN PRN Reason: Pain, severe (8-10) Stop: 03/21/18 23:43 Last Admin: 03/19/18 20:38 Dose: 1 tab Prednisolone Acetate (Pred Forte 1% Opht Susp) 0 ml OD Q6H [facility] Last Admin: 03/20/18 09:48 Dose: 1 drop - Labs Labs: 03/20/18 07:00 - Constitutional Appears: Non-toxic, Chronically Ill - Head Exam Head Exam: NORMAL INSPECTION - Eye Exam Eye Exam: Periorbital swelling (on the right much improved) - Respiratory Exam Respiratory Exam: Decreased Breath Sounds - Cardiovascular Exam Cardiovascular Exam: +S1, +S2 - GI/Abdominal Exam GI & Abdominal Exam: Soft. absent: Tenderness Assessment and Plan - Assessment and Plan (Free Text) Plan: Assessment Right eye uveitis with preseptal cellulitis, clinically improving chronic eye uveitis HTN renal cell carcinoma S/P chemotherapy history of IgG nephritis Plan Patient given a dose of IV Vancomycin and continue Merrem and Acyclovir day 2; follow up HSV, VZV serologies, RPR, CMV and HSV PCR; blood cx are negative; when ready for discharge, can be switched to PO Augmentin and PO Famvir to complete another 7 days of therapy will continue to monitor clinically
[2018-03-20] MEDS: Latanoprost 2.5 ml Opht Soln OD SCH (21:41)
[2018-03-20] MEDS: Oxycodone/Acetaminophen 5/325 mg Tab PO PRN (21:43)
[2018-03-21] MEDS: PrednisoLONE 1% Opht Susp(5 ml) OD SCH ×2 (07:55→08:54)
[2018-03-21 07:57] LABS: CALCIUM 8.9 mg/dL (8.4-10.5)
[2018-03-21 08:29] VITALS: PULSE 71; RESP 20; TEMP 98.3; O2SAT 78
[2018-03-21] MEDS: Acyclovir 250 MG in Sodium Chloride 0.9% 100 ML IV SCH ×2 (08:53→08:58)
[2018-03-21 09:01] VITALS: BP 149/94
[2018-03-21] MEDS: CYCLOPENTOLATE 1% OD SCH (10:16)
--- NOTE | 2018-03-21 10:17 | CP.PCM.DIS ---
<Neha Sanchez - Last Filed: 03/21/18 11:23> Provider - Provider Date of Admission: 03/18/18 18:20 Attending physician: Jeovany Benton MD Primary care physician: Jeovany Benton MD Consults: ID: Dr. Hargrove Ophthalmology: Dr. Glover Time Spent in preparation of Discharge (in minutes): 35 Hospital Course - Lab Results Lab Results: Most Recent Lab Values WBC 10.1 10^3/ul (4.5-11.0) 03/18/18 17:10 RBC 4.75 10^6/uL (3.5-6.1) 03/18/18 17:10 Hgb 13.9 g/dL (14.0-18.0) L 03/18/18 17:10 Hct 40.6 % (42.0-52.0) L 03/18/18 17:10 MCV 85.5 fl (80.0-105.0) 03/18/18 17:10 MCH 29.3 pg (25.0-35.0) 03/18/18 17:10 MCHC 34.2 g/dl (31.0-37.0) 03/18/18 17:10 RDW 12.7 % (11.5-14.5) 03/18/18 17:10 Plt Count 187 10^3/uL (120.0-450.0) 03/18/18 17:10 MPV 9.1 fl (7.0-11.0) 03/18/18 17:10 Gran % 79.2 % (50.0-68.0) H 03/18/18 17:10 Lymph % (Auto) 14.1 % (22.0-35.0) L 03/18/18 17:10 Ritchie % (Auto) 5.3 % (1.0-6.0) 03/18/18 17:10 Eos % (Auto) 1.2 % (1.5-5.0) L 03/18/18 17:10 Baso % (Auto) 0.2 % (0.0-3.0) 03/18/18 17:10 Gran # 8.00 (1.4-6.5) H 03/18/18 17:10 Lymph # (Auto) 1.4 (1.2-3.4) 03/18/18 17:10 Ritchie # (Auto) 0.5 (0.1-0.6) 03/18/18 17:10 Eos # (Auto) 0.1 (0.0-0.7) 03/18/18 17:10 Baso # (Auto) 0.02 K/mm3 (0.0-2.0) 03/18/18 17:10 ESR 45 mm/hr (0.00-15.0) H 03/18/18 17:10 Sodium 148 mmol/L (132-148) 03/21/18 07:00 Potassium 4.4 mmol/L (3.6-5.0) 03/21/18 07:00 Chloride 110 mmol/L (98-107) H 03/21/18 07:00 Carbon Dioxide 26 mmol/L (21-33) 03/21/18 07:00 Anion Gap 17 (10-20) 03/21/18 07:00 BUN 31 mg/dL (7-21) H 03/21/18 07:00 Creatinine 2.3 mg/dl (0.8-1.5) H 03/21/18 07:00 Est GFR ( Amer) 36 03/21/18 07:00 Est GFR (Non-Af Amer) 30 03/21/18 07:00 Random Glucose 105 mg/dL (70-110) 03/21/18 07:00 Calcium 8.9 mg/dL (8.4-10.5) 03/21/18 07:00 Total Bilirubin 0.2 mg/dL (0.2-1.3) 03/18/18 17:10 AST 20 U/L (17-59) 03/18/18 17:10 ALT 31 U/L (7-56) 03/18/18 17:10 Alkaline Phosphatase 63 U/L (38-126) 03/18/18 17:10 C-Reactive Protein 23.60 mg/L (0.0-9.9) H 03/19/18 07:15 C-React Prot High Sens > 15.00 mg/L (1.00-3.00) H 03/19/18 07:15 Total Protein 6.7 g/dL (5.8-8.3) 03/18/18 17:10 Albumin 4.0 g/dL (3.0-4.8) 03/18/18 17:10 Globulin 2.7 gm/dL 03/18/18 17:10 Albumin/Globulin Ratio 1.5 (1.1-1.8) 03/18/18 17:10 HLA-B27 Negative (Negative) 03/19/18 07:30 RPR Nonreactive (NONREACTIVE) 03/19/18 07:15 T.pallidum Ab (FTA-ABS) Nonreactive (Nonreactive) 03/19/18 07:30 HSV Source Description Plasma 03/19/18 07:30 HIV 1&2 Ag/Ab, 4th Gen Nonreactive (Nonreactive) 03/19/18 07:30 VZV IgG Antibody 1601.00 index 03/19/18 07:30 - Hospital Course Hospital Course: This is a 57yo male with past medical history of 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 This can be secondary to IgG4 versus infection from transmission of bacteria from spider bite in his R neck. Patient complained of R eye swelling and blurry vision with clear drainage. Patient stated out of his home Prednisone which could also have cause this flare. CT of R orbit was done which showed preseptal cellulitis. Ct neck was done to evaluate his R neck spider bite which did not show any abscess or soft tissue swelling. Since admission, patient was placed on IV steroids, antibiotics and Acyclovir. ID was consulted and recommended patient can be discharged home with Augmentin and Famvir for 7 days. Patient was also evaluated by his sewer and cutter finger buff material who recommended to continue his steroid and cyclogel eye drops to the R eye and follow up as outpatient. On admission, patient was also found to have CASS on CKD stage IV. He was hydrated and creatinine is now at baseline. Patient has been doing well and reports his vision in his R eye has improved. He reports he will follow up with PMD, Dr. Benton and Dr. Glover as outpatient. Discussed discharge plan with patient. Patient verbalized and agreed with discharge plan. New meds: Augmentin 500-125 BID x 7 days Famvir 250mg BID x 7 days Prednisone 10mg daily x 30 days Clonidine 0.1 BID x 30 days Norvasc 10mg daily x 30 days Prednisone eye drop- 1 drop q6h to R eye Cyclogel eye drops- 1 drop TID to R eye Latanoprost eye drops to both eyes at night Discontinue: Lisinopril 10mg daily - Date & Time of H&P Date of H&P: 03/19/18 Time of H&P: 10:00 Discharge Exam - Head Exam Head Exam: NORMAL INSPECTION - Eye Exam Eye Exam: Normal appearance, Periorbital swelling (R eye ), PERRL Pupil Exam: NORMAL ACCOMODATION, PERRL - ENT Exam ENT Exam: Mucous Membranes Moist - Neck Exam Additional comments: R wound on neck- no erythema - Respiratory Exam Respiratory Exam: Clear to PA & Lateral, NORMAL BREATHING PATTERN, UNREMARKABLE. absent: Rales, Rhonchi, Wheezes - Cardiovascular Exam Cardiovascular Exam: REGULAR RHYTHM, +S1, +S2. absent: Gallop, Rubs, Systolic Murmur - GI/Abdominal Exam GI & Abdominal Exam: Normal Bowel Sounds, Soft, Unremarkable. absent: Mass, Rebound, Rigid, Tenderness - Extremities Exam Extremities exam: normal inspection - Neurological Exam Neurological exam: Alert, CN II-XII Intact, Oriented x3 - Psychiatric Exam Psychiatric exam: Normal Affect, Normal Mood - Skin Skin Exam: Dry, Intact, Warm Discharge Plan - Discharge Medications Prescriptions: amLODIPine [Norvasc] 10 mg PO DAILY #30 tab Amoxicillin/Clavulanate [Augmentin 500 MG-125 MG] 1 tab PO BID #14 tab cloNIDine [Catapres] 0.1 mg PO BID #60 tab Cyclopentolate 1% [Cyclogyl 1% Opht] 1 drop OD TID #1 bottle Famciclovir [Famvir] 250 mg PO BID #14 tab Latanoprost 0.005% Opht [Xalatan Opht] 1 drop OU HS #1 bottle PrednisoLONE 1% [Pred Forte 1% Opht Susp] 1 drop OD Q6H #1 bottle predniSONE [predniSONE Tab] 10 mg PO DAILY #30 tab - Follow Up Plan Condition: FAIR Disposition: HOME/ ROUTINE Instructions: Orbital Cellulitis Additional Instructions: Medication called in to private pharmacy. Stop Lisinopril. Start taking Clonidine 0.1mg twice per day and Norvasc 10 mg daily. Both medications were sent to pharmacy. Follow up with Dr. Benton in one week. Follow up with Dr. Glover as outpatient. Monitor for signs of infection. Referrals: Jeovany Benton MD [Primary Care Provider] - <Jeovany Benton - Last Filed: 03/21/18 21:05> Provider - Provider Date of Admission: 03/18/18 18:20 Attending physician: Jeovany Benton MD Primary care physician: Jeovany Benton MD Hospital Course - Lab Results Lab Results: Most Recent Lab Values WBC 10.1 10^3/ul (4.5-11.0) 03/18/18 17:10 RBC 4.75 10^6/uL (3.5-6.1) 03/18/18 17:10 Hgb 13.9 g/dL (14.0-18.0) L 03/18/18 17:10 Hct 40.6 % (42.0-52.0) L 03/18/18 17:10 MCV 85.5 fl (80.0-105.0) 03/18/18 17:10 MCH 29.3 pg (25.0-35.0) 03/18/18 17:10 MCHC 34.2 g/dl (31.0-37.0) 03/18/18 17:10 RDW 12.7 % (11.5-14.5) 03/18/18 17:10 Plt Count 187 10^3/uL (120.0-450.0) 03/18/18 17:10 MPV 9.1 fl (7.0-11.0) 03/18/18 17:10 Gran % 79.2 % (50.0-68.0) H 03/18/18 17:10 Lymph % (Auto) 14.1 % (22.0-35.0) L 03/18/18 17:10 Ritchie % (Auto) 5.3 % (1.0-6.0) 03/18/18 17:10 Eos % (Auto) 1.2 % (1.5-5.0) L 03/18/18 17:10 Baso % (Auto) 0.2 % (0.0-3.0) 03/18/18 17:10 Gran # 8.00 (1.4-6.5) H 03/18/18 17:10 Lymph # (Auto) 1.4 (1.2-3.4) 03/18/18 17:10 Ritchie # (Auto) 0.5 (0.1-0.6) 03/18/18 17:10 Eos # (Auto) 0.1 (0.0-0.7) 03/18/18 17:10 Baso # (Auto) 0.02 K/mm3 (0.0-2.0) 03/18/18 17:10 ESR 45 mm/hr (0.00-15.0) H 03/18/18 17:10 Sodium 148 mmol/L (132-148) 03/21/18 07:00 Potassium 4.4 mmol/L (3.6-5.0) 03/21/18 07:00 Chloride 110 mmol/L (98-107) H 03/21/18 07:00 Carbon Dioxide 26 mmol/L (21-33) 03/21/18 07:00 Anion Gap 17 (10-20) 03/21/18 07:00 BUN 31 mg/dL (7-21) H 03/21/18 07:00 Creatinine 2.3 mg/dl (0.8-1.5) H 03/21/18 07:00 Est GFR ( Amer) 36 03/21/18 07:00 Est GFR (Non-Af Amer) 30 03/21/18 07:00 Random Glucose 105 mg/dL (70-110) 03/21/18 07:00 Calcium 8.9 mg/dL (8.4-10.5) 03/21/18 07:00 Total Bilirubin 0.2 mg/dL (0.2-1.3) 03/21/18 07:00 AST 16 U/L (17-59) L 03/21/18 07:00 ALT 20 U/L (7-56) 03/21/18 07:00 Alkaline Phosphatase 52 U/L (38-126) 03/21/18 07:00 C-Reactive Protein 23.60 mg/L (0.0-9.9) H 03/19/18 07:15 C-React Prot High Sens > 15.00 mg/L (1.00-3.00) H 03/19/18 07:15 Total Protein 6.7 g/dL (5.8-8.3) 03/21/18 07:00 Albumin 3.8 g/dL (3.0-4.8) 03/21/18 07:00 Globulin 3.0 gm/dL 03/21/18 07:00 Albumin/Globulin Ratio 1.3 (1.1-1.8) 03/21/18 07:00 HLA-B27 Negative (Negative) 03/19/18 07:30 RPR Nonreactive (NONREACTIVE) 03/19/18 07:15 T.pallidum Ab (FTA-ABS) Nonreactive (Nonreactive) 03/19/18 07:30 HSV Source Description Plasma 03/19/18 07:30 HIV 1&2 Ag/Ab, 4th Gen Nonreactive (Nonreactive) 03/19/18 07:30 VZV IgG Antibody 1601.00 index 03/19/18 07:30 - Hospital Course Hospital Course: Pt seen and examined. The note of the medical radiation therapist has been reviewed. Labs and medications reviewed. CASS improved. Will give Rx for Prednisone. Irits/ Uveitus improved.
[2018-03-21] MEDS: Meropenem 500 MG in Sodium Chloride 0.9% 50 ML IVPB SCH (10:18)
[2018-03-21] MEDS: MethylPREDNISolone 40 mg Vial IVP SCH (10:19)
[2018-03-21 10:37] LABS: ALB/GLOB RATIO 1.3 (1.1-1.8); ALBUMIN 3.8 g/dL (3.0-4.8)
[2018-03-22 11:36] LABS: SPECIMEN SOURCE Plasma
[2018-03-22 18:32] LABS: HERPESVIRUS 8 IgG AB IFA <1:20
== END 2018-03-21 11:09 | disposition home or self-care (01) | DRG 603 ==
LOC: ED 15:16 → ERH 18:20 → 5RSO 21:19
PROVIDERS: ADMIT Internal Medicine Nephrology; ATTEND Internal Medicine Nephrology
DX: L03.213 Periorbital cellulitis (principal); H20.9 Unspecified iridocyclitis; N18.4 Chronic kidney disease, stage 4 (severe); N17.9 Acute kidney failure, unspecified; I12.9 Hypertensive chronic kidney disease with stage 1 through stage 4 chronic kidney disease, or unspecified chronic kidney disease; T63.301A Toxic effect of unspecified spider venom, accidental (unintentional), initial encounter; Z85.528 Personal history of other malignant neoplasm of kidney; Z92.21 Personal history of antineoplastic chemotherapy; Z90.49 Acquired absence of other specified parts of digestive tract; Z79.899 Other long term (current) drug therapy; Z79.52 Long term (current) use of systemic steroids

== ENCOUNTER 2018-06-01 22:47 | Inpatient (IN) | payer MEDICARE, OTHER ==
--- NOTE | 2018-06-01 23:21 | ED PDOC ---
Arrival/HPI <Beverly,Robert - Last Filed: 06/02/18 01:17> - General Historian: Patient <Jayme Landry - Last Filed: 06/04/18 09:33> - General Time Seen by Provider: 06/01/18 23:06 - History of Present Illness Narrative History of Present Illness (Text): 06/01/18 23:07 58 y/o male, pmh including ckd/uvitis, nkda, c/o rt. knee redness and pain x 1 day. Pt. stated that he was changing the tire today, noted to have rt. knee pain and redness spot, able to walk and bear weight but with pain, able to flex and extend the knee, no numbness or tingling, no palpitation, no fever or chills , no other medical or psychological complaints. (Jayme Landry) Past Medical History - Provider Review Nursing Documentation Reviewed: Yes - Past History Past History: No Previous - Infectious Disease Hx of Infectious Diseases: None - Tetanus Immunization Tetanus Immunization: Unknown - Reproductive Currently Lactating: No - Cardiac Hx Cardiac Disorders: No Hx Hypertension: Yes - Pulmonary Hx Bronchitis: Yes - Neurological Hx Dizziness: Yes Hx Migraine: Yes - HEENT Hx HEENT Disorder: Yes (CELLULITIS TO LEFT EYE) Other/Comment: sx for deviated septum 4 yrs ago, c/o of having 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 after having deviated septum sx, has had for last 2 yrs recurrent migranes and uvitis, c/o photophobia, blurred vision r eye - Renal Hx Renal Disorder: Yes (RENAL INSUFFICIENCY) Hx Dialysis: No Other/Comment: kidney problem, 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 - Endocrine/Metabolic Hx Endocrine Disorders: No - Hematological/Oncological Hx Blood Transfusions: No Hx Blood Transfusion Reaction: No - Integumentary Hx Dermatological Disorder: (CELLULITIS TO L EYE 06-26-14,TATTOOS) Other/Comment: multiple tatoos - Musculoskeletal/Rheumatological Hx Falls: No - Gastrointestinal Hx Gastrointestinal Disorders: No Other/Comment: colonoscopy - Genitourinary/Gynecological Hx Genitourinary Disorders: Yes Hx Prostate Problems: (pt denies prostate problems) - Psychiatric Hx Psychophysiologic Disorder: No (OCCASIONAL BEERS) Hx Substance Use: No Other/Comment: in last 5 years lost his his job and his house - Surgical History Hx Cholecystectomy: Yes (2016) - Anesthesia Hx Anesthesia: Yes Hx Anesthesia Reactions: No Hx Malignant Hyperthermia: No - Suicidal Assessment Feels Threatened In Home Enviroment: No <Jayme Landry - Last Filed: 06/04/18 09:33> Family/Social History - Physician Review Nursing Documentation Reviewed: Yes Family/Social History: Unknown Family HX Smoking Status: Never Smoked Hx Alcohol Use: Yes (occasional beer) Hx Substance Use: No Hx Substance Use Treatment: No <Jayme Landry - Last Filed: 06/04/18 09:33> Allergies/Home Meds <Reji Paul - Last Filed: 06/02/18 01:17> <Jayme Landry - Last Filed: 06/04/18 09:33> Allergies/Adverse Reactions: Allergies No Known Allergies Allergy (Verified 03/18/18 15:50) Home Medications: Home Meds Medication Instructions Recorded Confirmed Alprazolam [Xanax] 0.25 mg PO PRN PRN 06/01/18 06/01/18 amLODIPine [Norvasc] 5 mg PO DAILY 06/01/18 06/01/18 oxyCODONE/Acetaminophen [Percocet 1 tab PO PRN PRN 06/01/18 06/01/18 5/325 mg Tab] predniSONE [predniSONE Tab] 5 mg PO DAILY 06/01/18 06/01/18 Review of Systems - Review of Systems Constitutional: absent: Fatigue, Fevers Eyes: absent: Vision Changes ENT: absent: Hearing Changes Respiratory: absent: SOB, Cough Cardiovascular: absent: Chest Pain Gastrointestinal: absent: Abdominal Pain, Nausea, Vomiting Musculoskeletal: Arthralgias, Joint Swelling. absent: Back Pain, Neck Pain, Myalgias Skin: Rash, Skin Lesions, Cellulitis. absent: Pruritis, Laceration, Abscess, Ulcer Neurological: absent: Headache, Dizziness Psychiatric: absent: Anxiety, Depression, Suicidal Ideation <Jayme Landry - Last Filed: 06/04/18 09:33> Physical Exam Vital Signs Reviewed: Yes Temperature: Afebrile Blood Pressure: Hypertensive Pulse: Regular Respiratory Rate: Normal Appearance: Positive for: Well-Appearing, Non-Toxic Pain Distress: Moderate Mental Status: Positive for: Alert and Oriented X 3 - Systems Exam Head: Present: Atraumatic, Normocephalic Pupils: Present: PERRL Extroacular Muscles: Present: EOMI Conjunctiva: Present: Normal Mouth: Present: Moist Mucous Membranes Neck: Present: Normal Range of Motion Respiratory/Chest: Present: Clear to Auscultation, Good Air Exchange. No: Respiratory Distress, Accessory Muscle Use Cardiovascular: Present: Regular Rate and Rhythm, Normal S1, S2. No: Murmurs Abdomen: No: Tenderness, Distention, Peritoneal Signs Back: Present: Normal Inspection Upper Extremity: Present: Normal Inspection. No: Cyanosis, Edema Lower Extremity: Present: Normal Inspection, NORMAL PULSES, Normal ROM, Tenderness, Swelling, Neurovascularly Intact, Capillary Refill < 2 s, Other ( Rt. knee: anterior aspect visible approx. [id number] erythematous and swelling with scab noted, no bony tenderness or deformity, FROM without limitation, sensation intact, motor 5/5, +DPPT Pulses, capillary refill< 2 seconds, neurovascular intact. ). No: Edema, CALF TENDERNESS, Ebony's Sign, Deformity Neurological: Present: GCS=15, CN II-XII Intact, Speech Normal Skin: Present: Warm, Dry, Normal Color. No: Rashes Psychiatric: Present: Alert, Oriented x 3, Normal Insight, Normal Concentration <Jayme Landry Q - Last Filed: 06/04/18 09:33> Vital Signs Temp Pulse Resp BP Pulse Ox 06/02/18 01:32 19 06/02/18 00:44 98.9 F 78 18 185/105 H 97 06/01/18 23:05 98.5 F 87 18 219/118 H 96 Medical Decision Making <Reji Paul - Last Filed: 06/02/18 01:17> - Lab Interpretations I have reviewed the lab results: Yes - RAD Interpretation Behavioral Instructor: Radiologist <Jayme Landry - Last Filed: 06/04/18 09:33> ED Course and Treatment: 06/01/18 23:27 Differential: Cellulitis vs. Gout vs. Knee fracture/dislocation -Labs/blood culture -IV Vancomycin/zosyn/toradol/benadryl -Rt. knee and chest xray -Observe and reassess 06/02/18 00:42 -Rt. knee xray no fracture or dislocation. -Chest xray show no active disease -Labs show no acute findings except wbc 13.9, BUN 28 from 31, creatine 2.4 from 2.3 -Uric acid with normal limit -Drug screen is negative -Clinically there is no signs of septic joint, will admit the patient for IV antibiotic with orthopedic consult -Paging Dr. Degroot for admission. 06/02/18 01:13 -Dr. Degroot called back, discussed about the case/labs/radiology results, request consult routinely with Dr. payne and Dr. De La Garza -Dr. Paul awared of the case and will put in the admission order. (Jayme Landry) - Lab Interpretations Microbiology Results: Microbiology Results 06/01/18 23:59 Blood-Venous Blood Culture - Preliminary NO GROWTH AFTER 48 HOURS 06/01/18 23:44 Blood-Venous Blood Culture - Preliminary NO GROWTH AFTER 48 HOURS Lab Results: 06/01/18 23:44 06/01/18 23:44 Lab Results 06/02/18 00:10: Urine Opiates Screen Negative, Urine Methadone Screen Negative, Ur Barbiturates Screen Negative, Ur Phencyclidine Scrn Negative, Ur Amphetamines Screen Negative, U Benzodiazepines Scrn Negative, U Oth Cocaine Metabols Negative, U Cannabinoids Screen Negative 06/01/18 23:44: WBC 13.9 H D, RBC 5.05, Hgb 15.0, Hct 42.1, MCV 83.4, MCH 29.7, MCHC 35.6, RDW 13.0, Plt Count 159, MPV 9.1, Gran % 83.4 H, Lymph % (Auto) 10.1 L, Otoe % (Auto) 5.5, Eos % (Auto) 0.9 L, Baso % (Auto) 0.1, Gran # 11.60 H, Lymph # (Auto) 1.4, Otoe # (Auto) 0.8 H, Eos # (Auto) 0.1, Baso # (Auto) 0.01 06/01/18 23:44: Sodium 142, Potassium 4.3, Chloride 107, Carbon Dioxide 22, Anion Gap 17, BUN 28 H, Creatinine 2.4 H, Est GFR ( Amer) 34, Est GFR ( Non-Af Amer) 28, Random Glucose 93, Uric Acid 7.7, Calcium 9.3, Magnesium 2.0, Total Bilirubin 0.4, AST 23, ALT 30, Alkaline Phosphatase 61, Total Creatine Kinase 393 H, CK-MB (CK-2) 3.3, CK-MB (CK-2) % Cancelled, Total Protein 7.4, Albumin 4.2, Globulin 3.2, Albumin/Globulin Ratio 1.3 - RAD Interpretation Radiology Orders: 06/01/18 23:22 KNEE W PATELLA RIGHT 3 VIEW [RAD] Stat 06/01/18 23:23 CHEST PORTABLE [RAD] Stat Rt. knee xray: prepatellar swelling, no fracture or dislocation Chest xray: no active pulmonary disease (Jayme Landry) - Medication Orders Current Medication Orders: Alprazolam (Xanax) 0.25 mg PO BID PRN; Protocol PRN Reason: Anxiety Stop: 06/09/18 18:01 Amlodipine Besylate (Norvasc) 5 mg PO DAILY FINESSE Last Admin: 06/03/18 10:42 Dose: 5 mg Hydralazine HCl (Apresoline) 10 mg IVP Q6 PRN PRN Reason: Systolic Blood Pressure Last Admin: 06/03/18 16:08 Dose: 10 mg IVP Administration Document 06/03/18 16:08 (Rec: 06/03/18 16:08 [facility]-[id number]) Charges for Administration # of IVP Administrations 1 JAN Pulse and Blood Pressure Document 06/03/18 16:08 (Rec: 06/03/18 16:08 [facility]-[id number]) Blood Pressure Blood Pressure (100/60-150/90) 194/97 Ceftaroline Fosamil 400 mg/ (Sodium Chloride) 100 mls @ 100 mls/hr IVPB Q12 FINESSE PRN Reason: Protocol Stop: 06/11/18 10:31 Last Admin: 06/03/18 22:50 Dose: 100 mls/hr eMAR Start Stop Document 06/03/18 22:50 OLIVD (Rec: 06/03/18 22:50 OLIVD [facility] [id number]) Intravenous Solution Start Date 06/03/18 Start Time 22:50 End Date 06/03/18 End time 23:50 Total Infusion Time 60 Morphine Sulfate (Morphine) 1 mg IVP Q3 PRN PRN Reason: Pain, moderate (4-7) Last Admin: 06/04/18 08:39 Dose: 1 mg MAR Pain Assessment Document 06/04/18 08:39 LO (Rec: 06/04/18 08:40 LO [id number]-[id number]) Pain Reassessment Is this a pain reassessment? No Sleep Is patient sleeping during reassessment? No Presence of Pain Presence of Pain Yes Pain Scale Used Pain Scale Used Numeric Location Left, Right or Bilateral Right Pain Location Body Site Knee Description Description Throbbing Alleviating Factors/Management Medication Techniques Alleviating Factors Medication IVP Administration Document 06/04/18 08:39 LO (Rec: 06/04/18 08:40 LO [id number]) Charges for Administration # of IVP Administrations 1 Prednisolone Acetate (Pred Forte 1% Opht Susp) 0 ml OD BID [facility] Prednisone (Prednisone Tab) 5 mg PO DAILY [facility] Last Admin: 06/03/18 10:42 Dose: 5 mg Discontinued Medications Clonidine HCl (Catapres) 0.1 mg PO STAT STA Stop: 06/02/18 01:38 Last Admin: 06/02/18 01:45 Dose: 0.1 mg Diphenhydramine HCl (Benadryl) 50 mg IVP STAT STA Stop: 06/01/18 23:23 Last Admin: 06/01/18 23:57 Dose: 50 mg IVP Administration Document 06/01/18 23:57 CNR (Rec: 06/01/18 23:57 CNR [id number]) Charges for Administration # of IVP Administrations 1 Hydralazine HCl (Apresoline) 10 mg IVP ONCE STA Stop: 06/02/18 09:30 Last Admin: 06/02/18 10:00 Dose: 10 mg IVP Administration Document 06/02/18 10:00 JW (Rec: 06/02/18 10:25 [id number] Charges for Administration # of IVP Administrations 1 [facility] Pulse and Blood Pressure Document 06/02/18 10:00 JW (Rec: 06/02/18 10:25 [id number] Pulse Pulse Rate (60-90) 70 Blood Pressure Blood Pressure (100/60-150/90) 189/104 Vancomycin HCl (Vancomycin 1gm) 1 gm in 250 mls @ 167 mls/hr IVPB STAT STA PRN Reason: Protocol Stop: 06/02/18 00:51 Last Admin: 06/02/18 00:51 Dose: 167 mls/hr eMAR Start Stop Document 06/02/18 00:51 CNR (Rec: 06/02/18 00:52 CNR [id number]) Intravenous Solution Start Date 06/02/18 Start Time 00:51 End Date 06/02/18 End time 02:21 Total Infusion Time 90 Piperacillin Sod/Tazobactam Sod (Zosyn 3.375 In Ns 100ml) 100 mls @ 200 mls/hr IVPB STAT STA PRN Reason: Protocol Stop: 06/01/18 23:51 Last Admin: 06/01/18 23:56 Dose: 200 mls/hr eMAR Start Stop Document 06/01/18 23:56 CNR (Rec: 06/01/18 23:57 CNR [id number]) Intravenous Solution Start Date 06/01/18 Start Time 23:57 End Date 06/02/18 End time 00:27 Total Infusion Time 30 Ketorolac Tromethamine (Toradol) 15 mg IVP STAT STA Stop: 06/01/18 23:29 Last Admin: 06/01/18 23:57 Dose: 15 mg MAR Pain Assessment Document 06/01/18 23:57 CNR (Rec: 06/01/18 23:57 CNR [id number]) Pain Reassessment Is this a pain reassessment? No IVP Administration Document 06/01/18 23:57 CNR (Rec: 06/01/18 23:57 CNR [id number]) Charges for Administration # of IVP Administrations 1 Morphine Sulfate (Morphine) 1 mg IVP STAT STA Stop: 06/02/18 13:36 Last Admin: 06/02/18 13:55 Dose: 1 mg MAR Pain Assessment Document 06/02/18 13:55 JW (Rec: 06/02/18 13:59 JW [id number]) Pain Reassessment Is this a pain reassessment? No Sleep Is patient sleeping during reassessment? No Presence of Pain Presence of Pain Yes Location Left, Right or Bilateral Right Pain Location Body Site Knee Description Description Intermittent Intensity of Pain at present 6 Pain Behavior Moaning Rubbing Site IVP Administration Document 06/02/18 13:55 (Rec: 06/02/18 13:59 [id number]) Charges for Administration # of IVP Administrations 1 Re-Assess: BRIGIDA Pain Assessment Document 06/02/18 14:55 ML (Rec: 06/02/18 19:54 ML [id number]) Pain Reassessment Is this a pain reassessment? Yes Presence of Pain Presence of Pain No Morphine Sulfate (Morphine) 1 mg IVP STAT ONE Stop: 06/03/18 18:13 Last Admin: 06/03/18 18:24 Dose: 1 mg [facility] Pain Assessment Document 06/03/18 18:24 (Rec: 06/03/18 18:25 [facility]-2RWOW-[id number]) Pain Reassessment Is this a pain reassessment? No Sleep Is patient sleeping during reassessment? No Presence of Pain Presence of Pain Yes IVP Administration Document 06/03/18 18:24 (Rec: 06/03/18 18:25 [facility]-[id number]) Charges for Administration # of IVP Administrations 1 Prednisolone Acetate (Pred Forte 1% Opht Susp) 1 ml OD BID FINESSE - PA / RIP SAW OPERATOR / Resident Statement LAURA has reviewed & agrees with the documentation as recorded. LAURA has examined the patient and agrees with the treatment plan. <Reji Paul - Last Filed: 06/02/18 01:17> - PA / RIP SAW OPERATOR / Resident Statement LAURA has reviewed & agrees with the documentation as recorded. LAURA has examined the patient and agrees with the treatment plan. <Jayme Landry - Last Filed: 06/04/18 09:33> Disposition/Present on Arrival <Reji Paul - Last Filed: 06/02/18 01:17> - Present on Arrival Any Indicators Present on Arrival: No History of DVT/PE: No History of Uncontrolled Diabetes: No Urinary Catheter: No History of Decub. Ulcer: No History Surgical Site Infection Following: None - Disposition Have Diagnosis and Disposition been Completed?: Yes Disposition Time: 23:29 Patient Plan: Admission <Jayme Landry - Last Filed: 06/04/18 09:33> - Disposition Diagnosis: Cellulitis of knee, right, Leukocytosis Disposition: HOSPITALIZED Patient Problems: Current Active Problems Problem Status Onset Cellulitis of knee, right Acute Leukocytosis Acute Condition: GUARDED
[2018-06-01] MEDS ORDERED: DiphenhydrAMINE 50 mg/ml Inj IVP STA (23:22)
[2018-06-01] MEDS ORDERED: Vancomycin 1gm in NS 250ml 1 GM/250 ML BAG IVPB STA (23:22)
[2018-06-01] MEDS ORDERED: Piperacillin/Tazobact 3.375 gm 100 ML IVPB STA (23:22)
[2018-06-02 00:05] LABS: BASO # 0.01 K/mm3 (0.0-2.0); BASO % 0.1 % (0.0-3.0); EOS # 0.1 (0.0-0.7); EOS % 0.9 % (1.5-5.0); GRAN # 11.6 (1.4-6.5); GRAN % 83.4 % (50.0-68.0); LYMPH # 1.4 (1.2-3.4); LYMPH % 10.1 % (22.0-35.0); MEAN CELL VOLUME 83.4 fl (80.0-105.0); MEAN CORPUSCULAR HEMOGLOBIN 29.7 pg (25.0-35.0); MEAN CORPUSCULAR HGB CONC 35.6 g/dl (31.0-37.0); MEAN PLATELET VOLUME 9.1 fl (7.0-11.0); MONO # 0.8 (0.1-0.6); MONO % 5.5 % (1.0-6.0); RBC 5.05 10^6/uL (3.5-6.1); WHITE BLOOD COUNT 13.9 10^3/ul (4.5-11.0)
[2018-06-02 00:10] LABS: ALB/GLOB RATIO 1.3 (1.1-1.8); ALBUMIN 4.2 g/dL (3.0-4.8); CALCIUM 9.3 mg/dL (8.4-10.5); URIC ACID 7.7 mg/dL (3.5-8.5)
[2018-06-02 00:35] LABS: CK-MB 3.3 ng/mL (0.0-3.6)
[2018-06-02 00:44] LABS: OPIATES, UR NEGATIVE (NEGATIVE)
[2018-06-02 01:11] LABS: BARBITURATES, UR NEGATIVE (NEGATIVE); BENZODIAZEPINES, UR NEGATIVE (NEGATIVE); PHENCYCLIDINE, UR NEGATIVE (NEGATIVE)
[2018-06-02 02:06] VITALS: BMI 28.0
--- NOTE | 2018-06-02 08:40 | RAD ---
Date of service: 06/02/2018 HISTORY: medical clearance COMPARISON: No prior. FINDINGS: LUNGS: The lungs are well inflated and clear. PLEURA: No significant pleural effusion identified, no pneumothorax apparent. CARDIOVASCULAR: Normal. OSSEOUS STRUCTURES: Within normal limits for the patient's. VISUALIZED UPPER ABDOMEN: Normal. OTHER FINDINGS: None. IMPRESSION: No active pulmonary disease.
--- NOTE | 2018-06-02 11:38 | CON ---
DATE: 06/02/2018 LOCATION: The patient is seen in room 377 earlier this morning. CHIEF COMPLAINT: Right knee pain times several days. HISTORY OF PRESENT ILLNESS: This is a 58-year-old male with past medical history significant for kidney disease and uveitis. He has an IgG4 type associated tubular interstitial nephritis and stage 3 kidney disease, history of uveitis and left eye periorbital cellulitis and BPH, who was admitted in 2013, treated for sinusitis, has had kidney biopsy, a hernia repair, left foot surgery, has no known allergies. The patient states that he was changing a tire in a car and bend on his knee and caused trauma, which resulted in an infection in his knee. He was seen in the emergency room by emergency room doctor, who states the patient has kidney disease, uveitis and redness of the right knee x1 day duration. He has no fevers or chills. No nausea. No vomiting. No chest pain. 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 PAST SURGICAL HISTORY: Significant for colonoscopy and kidney biopsy and cholecystectomy, hernia surgery and left foot surgery. ALLERGIES: THE PATIENT HAS NO KNOWN ALLERGIES. MEDICATIONS AT HOME: Include Norvasc, aspirin and oxycodone. PHYSICAL EXAMINATION: GENERAL: The patient is in bed, no acute distress, answering questions. VITAL SIGNS: Temperature of 98.5, heart rate of 78, respiratory rate of 18, blood pressure 185/105. HEENT: Examination of HEENT is unremarkable. NECK: Supple. LUNGS: Have decreased breath sounds. HEART: Normal S1 and S2. ABDOMEN: Soft, nontender. EXTREMITIES: Examination of the right knee, he has full range of motion of the joints. It is not the joint infected. It is erythematous and swollen and skin infection of right knee. LABORATORY DATA: Laboratory examination reveals a white count of 13,900, hemoglobin of 15. BUN of 28, creatinine is 2.4. Toxicology is negative. Microbiology is not available. The patient had a knee x-ray. No reading is available. Emergency room chart is reviewed. Chest x-ray is reported to be well inflated, clear lungs. 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 #1 is a right knee cellulitis with leukocytosis. Skin and skin soft tissue infection with a full range of motion in a patient who has renal insufficiency, give vancomycin. We will start Teflaro, ceftaroline at 400 mg adjusted for his kidney. We will make further recommendation. Review of his laboratories from the past reveals the patient has had negative human immunodeficiency virus. We will follow closely with you. Afshin De La Garza MD
--- NOTE | 2018-06-02 13:34 | RAD ---
Date of service: 06/02/2018 PROCEDURE: Right Knee Radiographs. HISTORY: rt. knee cellulitis COMPARISON: None. FINDINGS: BONES: Bone alignment and mineralization are normal. There is no acute displaced fracture or bone destruction. JOINTS: Normal. No osteoarthritis. JOINT EFFUSION: None. OTHER FINDINGS: There is prepatellar soft tissue swelling. IMPRESSION: Prepatellar soft tissue swelling. No acute fracture or dislocation
[2018-06-02] MEDS ORDERED: Morphine 2 mg/ml ISec IVP STA (13:35)
[2018-06-02] MEDS: Morphine 2 mg/ml ISec IVP PRN (18:50)
--- NOTE | 2018-06-02 19:39 | CON ---
DATE: 06/02/2018 ORTHOPEDIC CONSULTATION HISTORY OF PRESENT ILLNESS: The patient has acute cellulitis of his prepatellar bursa, right knee, with a small folliculitis that is too small to culture at this time. There is no evidence of effusion that I could aspirate. It looks like that the cellulitis is around the parapatellar region of the right knee, about 5 inches x 3 inches. He can move his knee. It is not an intraarticular problem. Range of motion is adequate. He has got sensitivity to the skin around the anterior right knee. He does have chronic renal disease . Right now, he is on antibiotics. The symptoms that he had prior to admission were approximately 24 hours and he has had a previous history of these infections that have been treated with the antibiotics, so hopefully the antibiotics will continue to improve the cellulitis, so he does not need any I and D. The x-rays were within normal limits of the right knee. FINAL DIAGNOSIS: Cellulitis, right knee. We will follow him closely to make sure the knee joint does not get involved, and if he does develop the abscess, I could drain it. In the meantime, besides the antibiotics, put warm compresses there on the right knee. David Busch DO MTDGeorgie
--- NOTE | 2018-06-03 00:57 | HP ---
DATE OF EVALUATION: 06/02/2018 HISTORY OF PRESENT ILLNESS: Mr. Cristobal is a 58-year-od male admitted with right knee cellulitis. He has history of IgG nephropathy and uveitis. He has been on prednisone 5 mg daily for that. He also has interstitial nephritis and chronic kidney disease stage 3. He was started on IV antibiotics, right knee swollen and red. He has had some trauma while changing the tire in the car on the right knee. No fever, no cough with expectorations. No nausea, no vomiting. PAST MEDICAL HISTORY: IgG nephropathy, IgG uveitis, chronic kidney disease stage 3 and left eye periorbital cellulitis . PAST SURGICAL HISTORY: Colonoscopy, renal biopsy, cholecystectomy, hernia surgery and left foot surgery. ALLERGIES: NO KNOWN DRUG ALLERGIES. FAMILY HISTORY: Noncontributory. PERSONAL HISTORY: Nonsmoker, no history of alcohol abuse. HOME MEDICATIONS: Norvasc, oxycodone and aspirin. PHYSICAL EXAMINATION GENERAL: Comfortable in bed, in no acute distress. VITAL SIGNS: Temperature of 98.6, heart rate 78 per minute, respiratory rate 18 per minute and blood pressure 165/70. HEENT: No pallor. NECK: No lymphadenopathy. CHEST: Air entry present equal and bilateral. No added sounds. CARDIOVASCULAR: S1, S2 normal. No murmur. No gallop. ABDOMEN: Soft and nontender. No hepatosplenomegaly. EXTREMITIES: No edema. Right knee swollen, erythematous. Full range of motion. LINE SUPERVISOR: Alert and oriented x3. No focal sensory or motor deficit. LABORATORY DATA: White count 13.9 and hemoglobin 15. Creatinine 2.9. X-ray of the knee reviewed. Chest x-ray no infiltrate. ASSESSMENT: 1. Right knee cellulitis. 2. Leukocytosis. 3. IgG nephropathy. 4. Uveitis. PLAN: ID consultation Dr. De La Garza requested. He was started on vancomycin renal doses. Right knee has full range of motion. Consultation Dr. Busch requested. He recommended continuing IV antibiotics. If cellulitis does not improve, joint aspiration will be performed. Leukocytosis is related to joint infection. He is immunocompromised, chronically on steroids with prednisone 5 mg daily. We will continue during hospitalization. Renal function, stable. Electrolytes normal. Padmini Mckinney MD [facility] # [id number]
[2018-06-03] MEDS: Morphine 2 mg/ml ISec IVP PRN ×3 (01:33→15:53)
[2018-06-03 10:17] LABS: CALCIUM 8.8 mg/dL (8.4-10.5)
[2018-06-03 10:37] LABS: BASO # 0.01 K/mm3 (0.0-2.0); BASO % 0.1 % (0.0-3.0); EOS # 0.1 (0.0-0.7); EOS % 0.5 % (1.5-5.0); GRAN # 12.48 (1.4-6.5); HEMOGLOBIN 14.8 g/dL (14.0-18.0); MEAN CELL VOLUME 84.1 fl (80.0-105.0); MEAN CORPUSCULAR HEMOGLOBIN 29.8 pg (25.0-35.0); MEAN CORPUSCULAR HGB CONC 35.4 g/dl (31.0-37.0); MEAN PLATELET VOLUME 9.5 fl (7.0-11.0); MONO # 0.8 (0.1-0.6); MONO % 5.4 % (1.0-6.0); RBC 4.97 10^6/uL (3.5-6.1); WHITE BLOOD COUNT 14.4 10^3/ul (4.5-11.0)
--- NOTE | 2018-06-03 16:09 | PN ---
DATE: 06/03/2018 SUBJECTIVE: The patient is in bed, in no acute distress, nontoxic. PHYSICAL EXAMINATION: VITAL SIGNS: Temperature is 98, blood pressure is 150/90, respiratory rate of 20, heart rate of 84. HEENT: Unremarkable. NECK: Supple. LUNGS: Have decreased breath sounds. HEART: Normal S1, S2. ABDOMINAL: Soft, nontender. EXTREMITIES: Examination of the leg reveals somewhat improvement, however, still significant erythema. LABORATORY EXAMINATION: Reveals a white count of 14,400, hemoglobin of 14. Chemistries reveals a BUN of 26, creatinine of 2.4. Toxicology is noted. Microbiology reveals the blood cultures are negative. 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 Skin and skin soft tissue infection with a full range of motion of the knee joint, not involving the knee joint. Currently on Teflaro day #2 with some improvement in the cellulitis. We will continue to follow closely. Afshin De La Garza MD
[2018-06-03] MEDS ORDERED: Morphine 2 mg/ml ISec IVP STA (17:50)
[2018-06-03] MEDS ORDERED: Morphine 2 mg/ml ISec IVP ONE (18:12)
--- NOTE | 2018-06-03 19:16 | PN ---
DATE: 06/03/2018 FOLLOWUP NOTE SUBJECTIVE: He is comfortable in bed, in no acute distress. Right knee swelling and erythema and pain decreased a lot. No restriction of knee joint movement. He is able to ambulate. No fever. No cough with expectoration. Currently on IV antibiotics as per Dr. De La Garza, ceftaroline. REVIEW OF SYSTEMS: As per HPI. Rest of 12-point review of systems reviewed negative. MEDICATIONS: Xanax 0.25 mg p.o. b.i.d. p.r.n., Norvasc 5 mg daily, ceftaroline every 12 hours, hydralazine 10 mg IV every 6 hours p.r.n. for hypertension, morphine 1 mg every 3 hours p.r.n. for pain, prednisone 5 mg daily. LABORATORY DATA: Drug screen negative. White count 14,000, hemoglobin 14.8, hematocrit 41.8, platelet count 158. Sodium 140, potassium 3.8, creatinine 2.4. PHYSICAL EXAMINATION: GENERAL: Comfortable in bed, in no acute distress. VITAL SIGNS: Temperature 98.6, heart rate is 90 per minute, blood pressure 190/97, respiratory rate 19 per minute, oxygen saturation 98% on room air. Neck: No lymphadenopathy. CHEST: Air entry present and equal bilateral. No added sound. CARDIOVASCULAR: S1, S2 normal. No murmur. No gallop. ABDOMEN: Soft, nontender. No hepatosplenomegaly. EXTREMITY: Right leg erythema present over the right knee decreased. Full range of motion on the right knee joint. Slightly tender above the knee joint. EXCELSIOR MACHINE TENDER: Alert and oriented x3. No focal sensorimotor deficit. SKIN: As described. ASSESSMENT: 1. Superficial skin cellulitis above the right knee joint. 2. Ig G nephropathy. 3. History of immunoglobulin G uveitis. 4. Leukocytosis. PLAN: He is currently on IV antibiotic, ceftaroline as per Dr. De La Garza. Cellulitis above the right knee joint is improving. Full range of motion. We will continue current medications. Continue Xanax p.r.n. White count elevated. We will continue to monitor that. Prednisone 5 mg daily for IgG nephropathy and uveitis. Continue morphine sulfate 1 mg every 3 hours p.r.n. Pain control with the current regimen. He still has uncontrolled hypertension, currently getting hydralazine p.r.n. for elevated blood pressure. Padmini Mckinney MD cc: MD Joan (Delete if not dictated.) MTDD
--- NOTE | 2018-06-04 02:02 | PROCN ---
DATE: 06/03/2018 The patient has been treated for cellulitis of the right prepatellar region. He had a small carbuncle, which has got twice the size today; so, we I&Ded the carbuncle type abscess of his right knee just above the patella of some white fluid and serous fluid. We send it for culture. We did that after we prepped it with alcohol twice the skin, waited for the alcohol to dry and we will send that tissue to the lab for definitive culture. He does feel a little better today. He can move the knee. No signs of a joint sepsis. So, wait for the abscess fluid to come back from the bacteriology exam to see if we have to change the antibiotics. David Busch DO MTDGeorgie
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
[2018-06-04] MEDS: Morphine 2 mg/ml ISec IVP PRN (08:39)
[2018-06-04 08:54] VITALS: RESP 20
[2018-06-04] MEDS ORDERED: PrednisoLONE 1% Opht Susp(5 ml) OD SCH (10:00)
[2018-06-04] MEDS: PrednisoLONE 1% Opht Susp(5 ml) OD SCH ×2 (10:05→18:01)
[2018-06-04] MEDS ORDERED: Morphine 2 mg/ml ISec IVP PRN (10:08)
[2018-06-04] MEDS ORDERED: Oxycodone/Acetaminophen 5/325 mg Tab PO PRN (10:09)
--- NOTE | 2018-06-04 15:06 | CP.PCM.PN ---
Subjective - Date & Time of Evaluation Date of Evaluation: 06/04/18 Time of Evaluation: 11:35 - Subjective Subjective: Still having right knee pain, no fevers. Objective - Vital Signs/Intake and Output Vital Signs (last 24 hours): Temp Pulse Resp BP Pulse Ox 98.1 F 80 20 162/100 H 96 06/04/18 08:54 06/04/18 10:03 06/04/18 08:54 06/04/18 10:03 06/04/18 08:54 Intake and Output: 06/04/18 06/04/18 06:59 18:59 Intake Total 540 Balance 540 - Medications Medications: Current Medications Alprazolam (Xanax) 0.25 mg PO BID PRN; Protocol PRN Reason: Anxiety Stop: 06/09/18 18:01 Amlodipine Besylate (Norvasc) 10 mg PO DAILY [facility] Famotidine (Pepcid) 40 mg PO HS [facility] Hydralazine HCl (Apresoline) 10 mg IVP Q6 PRN PRN Reason: Systolic Blood Pressure Last Admin: 06/03/18 16:08 Dose: 10 mg Ceftaroline Fosamil 400 mg/ (Sodium Chloride) 100 mls @ 100 mls/hr IVPB Q12 [facility] PRN Reason: Protocol Stop: 06/11/18 10:31 Last Admin: 06/04/18 10:06 Dose: 100 mls/hr Morphine Sulfate (Morphine) 2 mg IVP Q4H PRN PRN Reason: Pain, severe (8-10) Oxycodone/Acetaminophen (Percocet 5/325 Mg Tab) 1 tab PO Q6H PRN PRN Reason: Pain, moderate (4-7) Stop: 06/07/18 10:10 Prednisolone Acetate (Pred Forte 1% Opht Susp) 0 ml OD BID [facility] Last Admin: 06/04/18 10:05 Dose: 2 drop Prednisone (Prednisone Tab) 10 mg PO DAILY [facility] - Labs Labs: 06/03/18 09:45 06/03/18 09:45 - Constitutional Appears: Chronically Ill - Head Exam Head Exam: NORMAL INSPECTION - Respiratory Exam Respiratory Exam: Decreased Breath Sounds - Cardiovascular Exam Cardiovascular Exam: +S1, +S2 - GI/Abdominal Exam GI & Abdominal Exam: Soft. absent: Tenderness Assessment and Plan - Assessment and Plan (Free Text) Plan: Assessment right knee abscess and cellulitis S/P I and D, growing gram positive cocci history of right eye uveitis with preseptal cellulitis chronic eye uveitis HTN renal cell carcinoma S/P chemotherapy history of IgG nephritis Plan continue Teflaro pending identifcation and sensitivities of the gram positive cocci in the abscess will monitor clinically
[2018-06-04] MEDS ORDERED: Morphine 2 mg/2 mL syringe IVP PRN (16:44)
[2018-06-05 07:00] LABS: HEMOGLOBIN 15.1 g/dL (14.0-18.0); MEAN CELL VOLUME 84.3 fl (80.0-105.0); MEAN CORPUSCULAR HEMOGLOBIN 29.3 pg (25.0-35.0); MEAN CORPUSCULAR HGB CONC 34.8 g/dl (31.0-37.0); RBC 5.15 10^6/uL (3.5-6.1); RED CELL DISTRIBUTION WIDTH 12.8 % (11.5-14.5); WHITE BLOOD COUNT 13.3 10^3/ul (4.5-11.0)
[2018-06-05 07:19] LABS: ALB/GLOB RATIO 1.2 (1.1-1.8); ALBUMIN 4.1 g/dL (3.0-4.8); CALCIUM 9.5 mg/dL (8.4-10.5)
[2018-06-05 09:21] VITALS: BP 165/92; PULSE 72; TEMP 97.8; O2SAT 96
[2018-06-05] MEDS: PrednisoLONE 1% Opht Susp(5 ml) OD SCH (09:33)
[2018-06-05] MEDS ORDERED: DEXTROSE 5% IVPB SCH (09:56)
[2018-06-05] MEDS ORDERED: WATER IVPB SCH (09:56)
[2018-06-05] MEDS ORDERED: CEFTAROLINE IVPB SCH (09:56)
--- NOTE | 2018-06-05 15:27 | CP.PCM.DIS ---
<LauraNeha - Last Filed: 06/05/18 15:22> Provider - Provider Date of Admission: 06/02/18 01:15 Attending physician: Jeovany Benton MD Primary care physician: Jeovany Benton MD Time Spent in preparation of Discharge (in minutes): 35 Hospital Course - Lab Results Lab Results: Micro Results 06/03/18 15:30 Abscess - Knee-Right Gram Stain - Final 06/03/18 15:30 Abscess - Knee-Right Wound Culture - Final Methicillin Resistant S Aureus Most Recent Lab Values WBC 13.3 10^3/ul (4.5-11.0) H 06/05/18 06:20 RBC 5.15 10^6/uL (3.5-6.1) 06/05/18 06:20 Hgb 15.1 g/dL (14.0-18.0) 06/05/18 06:20 Hct 43.4 % (42.0-52.0) 06/05/18 06:20 MCV 84.3 fl (80.0-105.0) 06/05/18 06:20 MCH 29.3 pg (25.0-35.0) 06/05/18 06:20 MCHC 34.8 g/dl (31.0-37.0) 06/05/18 06:20 RDW 12.8 % (11.5-14.5) 06/05/18 06:20 Plt Count 202 10^3/uL (120.0-450.0) 06/05/18 06:20 MPV 9.0 fl (7.0-11.0) 06/05/18 06:20 Gran % 87.0 % (50.0-68.0) H 06/03/18 09:45 Lymph % (Auto) 7.0 % (22.0-35.0) L 06/03/18 09:45 [place] % (Auto) 5.4 % (1.0-6.0) 06/03/18 09:45 Eos % (Auto) 0.5 % (1.5-5.0) L 06/03/18 09:45 Baso % (Auto) 0.1 % (0.0-3.0) 06/03/18 09:45 Gran # 12.48 (1.4-6.5) H 06/03/18 09:45 Lymph # (Auto) 1.0 (1.2-3.4) L 06/03/18 09:45 [place] # (Auto) 0.8 (0.1-0.6) H 06/03/18 09:45 Eos # (Auto) 0.1 (0.0-0.7) 06/03/18 09:45 Baso # (Auto) 0.01 K/mm3 (0.0-2.0) 06/03/18 09:45 Sodium 144 mmol/L (132-148) 06/05/18 06:20 Potassium 4.4 mmol/L (3.6-5.0) 06/05/18 06:20 Chloride 104 mmol/L (98-107) 06/05/18 06:20 Carbon Dioxide 29 mmol/L (21-33) 06/05/18 06:20 Anion Gap 15 (10-20) 06/05/18 06:20 BUN 28 mg/dL (7-21) H 06/05/18 06:20 Creatinine 2.5 mg/dl (0.8-1.5) H 06/05/18 06:20 Est GFR ( Amer) 32 06/05/18 06:20 Est GFR (Non-Af Amer) 27 06/05/18 06:20 POC Glucose (mg/dL) 142 mg/dL (65-110) H 06/04/18 17:06 Random Glucose 108 mg/dL (70-110) 06/05/18 06:20 Uric Acid 7.7 mg/dL (3.5-8.5) 06/01/18 23:44 Calcium 9.5 mg/dL (8.4-10.5) 06/05/18 06:20 Magnesium 2.0 mg/dL (1.7-2.2) 06/01/18 23:44 Total Bilirubin 0.5 mg/dL (0.2-1.3) 06/05/18 06:20 AST 15 U/L (17-59) L D 06/05/18 06:20 ALT 16 U/L (7-56) 06/05/18 06:20 Alkaline Phosphatase 53 U/L (38-126) 06/05/18 06:20 Total Creatine Kinase 393 U/L (35-230) H 06/01/18 23:44 CK-MB (CK-2) 3.3 ng/mL (0.0-3.6) 06/01/18 23:44 CK-MB (CK-2) % Cancelled 06/01/18 23:44 Total Protein 7.5 g/dL (5.8-8.3) 06/05/18 06:20 Albumin 4.1 g/dL (3.0-4.8) 06/05/18 06:20 Globulin 3.4 gm/dL 06/05/18 06:20 Albumin/Globulin Ratio 1.2 (1.1-1.8) 06/05/18 06:20 Urine Opiates Screen Negative (NEGATIVE) 06/02/18 00:10 Urine Methadone Screen Negative (NEGATIVE) 06/02/18 00:10 Ur Barbiturates Screen Negative (NEGATIVE) 06/02/18 00:10 Ur Phencyclidine Scrn Negative (NEGATIVE) 06/02/18 00:10 Ur Amphetamines Screen Negative (NEGATIVE) 06/02/18 00:10 U Benzodiazepines Scrn Negative (NEGATIVE) 06/02/18 00:10 U Oth Cocaine Metabols Negative (NEGATIVE) 06/02/18 00:10 U Cannabinoids Screen Negative (NEGATIVE) 06/02/18 00:10 - Hospital Course Hospital Course: This is a 58yo male with past medical history of HTN, IgG4 nephropathy (CKD stage IV), chronic uveitis admitted for R knee cellulitis secondary to trauma. Ortho consulted and aspirated knee. Patient was placed on empiric antibiotics as per ID. Patient also placed on prednisone. Microbiology from aspiration grew MRSA. R knee swelling improved. Patient can ambulate. He was discharged home with doxycycline 100mg BID for 1 week. He will follow up with Dr. Benton in 1- 2 weeks. Patient verbalized and agreed with d/c plan. - Date & Time of H&P Date of H&P: 06/02/18 Time of H&P: 14:00 Discharge Exam - Head Exam Head Exam: NORMAL INSPECTION - Eye Exam Eye Exam: PERRL Pupil Exam: NORMAL ACCOMODATION, PERRL Additional comments: periorbital swlling R eye - ENT Exam ENT Exam: Mucous Membranes Moist - Respiratory Exam Respiratory Exam: Clear to PA & Lateral, NORMAL BREATHING PATTERN, UNREMARKABLE. absent: Rhonchi, Wheezes - Cardiovascular Exam Cardiovascular Exam: REGULAR RHYTHM, +S1, +S2. absent: Gallop, Rubs, Systolic Murmur - GI/Abdominal Exam GI & Abdominal Exam: Normal Bowel Sounds, Soft, Unremarkable. absent: Rebound, Rigid, Tenderness - Extremities Exam Extremities exam: tenderness (R knee) Additional comments: erythema R knee- improved - Neurological Exam Neurological exam: Alert, CN II-XII Intact, Normal Gait, Oriented x3 - Psychiatric Exam Psychiatric exam: Normal Affect, Normal Mood - Skin Skin Exam: Dry, Warm Discharge Plan - Discharge Medications Prescriptions: Doxycycline Hyclate 100 mg PO BID #10 capsule - Follow Up Plan Condition: GUARDED Disposition: HOME/ ROUTINE Instructions: Cellulitis (Skin Infection), Adult (DC) Additional Instructions: CONTINUE MEDICATION PREVIOUSLY ON AT HOME. TAKE ANTIBIOTIC INSTRUCTED FOR [address]YS. FOLLOW UP WITH DR. BENTON IN 1-2 WEEKS. ANY ANY FEVERS, INCREASE IN SWELLING IN KNEE, CHANGE IN COMFORT STATUS REPORT TO MD OR GO TO ER. Referrals: Jeovany Benton MD [Primary Care Provider] - <Jeovany Benton - Last Filed: 06/05/18 18:12> Provider - Provider Date of Admission: 06/02/18 01:15 Attending physician: Jeovany Benton MD Primary care physician: Jeovany Benton MD Hospital Course - Lab Results Lab Results: Micro Results 06/03/18 15:30 Abscess - Knee-Right Gram Stain - Final 06/03/18 15:30 Abscess - Knee-Right Wound Culture - Final Methicillin Resistant S Aureus Most Recent Lab Values WBC 13.3 10^3/ul (4.5-11.0) H 06/05/18 06:20 RBC 5.15 10^6/uL (3.5-6.1) 06/05/18 06:20 Hgb 15.1 g/dL (14.0-18.0) 06/05/18 06:20 Hct 43.4 % (42.0-52.0) 06/05/18 06:20 MCV 84.3 fl (80.0-105.0) 06/05/18 06:20 MCH 29.3 pg (25.0-35.0) 06/05/18 06:20 MCHC 34.8 g/dl (31.0-37.0) 06/05/18 06:20 RDW 12.8 % (11.5-14.5) 06/05/18 06:20 Plt Count 202 10^3/uL (120.0-450.0) 06/05/18 06:20 MPV 9.0 fl (7.0-11.0) 06/05/18 06:20 Gran % 87.0 % (50.0-68.0) H 06/03/18 09:45 Lymph % (Auto) 7.0 % (22.0-35.0) L 06/03/18 09:45 [place] % (Auto) 5.4 % (1.0-6.0) 06/03/18 09:45 Eos % (Auto) 0.5 % (1.5-5.0) L 06/03/18 09:45 Baso % (Auto) 0.1 % (0.0-3.0) 06/03/18 09:45 Gran # 12.48 (1.4-6.5) H 06/03/18 09:45 Lymph # (Auto) 1.0 (1.2-3.4) L 06/03/18 09:45 [place] # (Auto) 0.8 (0.1-0.6) H 06/03/18 09:45 Eos # (Auto) 0.1 (0.0-0.7) 06/03/18 09:45 Baso # (Auto) 0.01 K/mm3 (0.0-2.0) 06/03/18 09:45 Sodium 144 mmol/L (132-148) 06/05/18 06:20 Potassium 4.4 mmol/L (3.6-5.0) 06/05/18 06:20 Chloride 104 mmol/L (98-107) 06/05/18 06:20 Carbon Dioxide 29 mmol/L (21-33) 06/05/18 06:20 Anion Gap 15 (10-20) 06/05/18 06:20 BUN 28 mg/dL (7-21) H 06/05/18 06:20 Creatinine 2.5 mg/dl (0.8-1.5) H 06/05/18 06:20 Est GFR ( Amer) 32 06/05/18 06:20 Est GFR (Non-Af Amer) 27 06/05/18 06:20 POC Glucose (mg/dL) 142 mg/dL (65-110) H 06/04/18 17:06 Random Glucose 108 mg/dL (70-110) 06/05/18 06:20 Uric Acid 7.7 mg/dL (3.5-8.5) 06/01/18 23:44 Calcium 9.5 mg/dL (8.4-10.5) 06/05/18 06:20 Magnesium 2.0 mg/dL (1.7-2.2) 06/01/18 23:44 Total Bilirubin 0.5 mg/dL (0.2-1.3) 06/05/18 06:20 AST 15 U/L (17-59) L D 06/05/18 06:20 ALT 16 U/L (7-56) 06/05/18 06:20 Alkaline Phosphatase 53 U/L (38-126) 06/05/18 06:20 Total Creatine Kinase 393 U/L (35-230) H 06/01/18 23:44 CK-MB (CK-2) 3.3 ng/mL (0.0-3.6) 06/01/18 23:44 CK-MB (CK-2) % Cancelled 06/01/18 23:44 Total Protein 7.5 g/dL (5.8-8.3) 06/05/18 06:20 Albumin 4.1 g/dL (3.0-4.8) 06/05/18 06:20 Globulin 3.4 gm/dL 06/05/18 06:20 Albumin/Globulin Ratio 1.2 (1.1-1.8) 06/05/18 06:20 Urine Opiates Screen Negative (NEGATIVE) 06/02/18 00:10 Urine Methadone Screen Negative (NEGATIVE) 06/02/18 00:10 Ur Barbiturates Screen Negative (NEGATIVE) 06/02/18 00:10 Ur Phencyclidine Scrn Negative (NEGATIVE) 06/02/18 00:10 Ur Amphetamines Screen Negative (NEGATIVE) 06/02/18 00:10 U Benzodiazepines Scrn Negative (NEGATIVE) 06/02/18 00:10 U Oth Cocaine Metabols Negative (NEGATIVE) 06/02/18 00:10 U Cannabinoids Screen Negative (NEGATIVE) 06/02/18 00:10 - Hospital Course Hospital Course: Pt seen and examined. I have reviewed the note of the medical liaison and agree with it. I have discussed the assessment and plan with the resident. I have reviewed the patient's labs and medications. Pt with MRSA cellulitis. Will be placed on Doxy PO and discharged home. He is able to walk and bear weight on the knee. Spoke to ID and ok to d/c. Will see pt as outpt.
--- NOTE | 2018-06-07 01:04 | PN ---
DATE: 06/05/2018 This is a note from yesterday which was lost. SUBJECTIVE: Patient was in bed. Patient was seen yesterday. PHYSICAL EXAMINATION: VITAL SIGNS: Temperature of 97, heart rate of 90. HEENT: Unremarkable. NECK: Supple. LUNGS: Have decreased breath sounds. HEART: Normal S1 and S2. ABDOMEN: Soft. EXTREMITIES: Leg is much improved and he was discharged on p.o. antibiotics. ASSESSMENT AND PLAN: Soft tissue infection with methicillin-resistant Staphylococcus aureus. Complete therapy with p.o. antibiotics. Afshin De La Garza MD
== END 2018-06-05 13:12 | disposition home or self-care (01) | DRG 603 ==
LOC: ED 22:47 → ERH 06-02 01:15 → 3RSO 06-02 01:49
PROVIDERS: ADMIT Internal Medicine Nephrology; ATTEND Internal Medicine Nephrology
PROC: 0J9N3ZZ Drainage of Right Lower Leg Subcutaneous Tissue and Fascia, Percutaneous Approach (ICD-10-PCS; principal; 2018-06-03)
DX: L03.115 Cellulitis of right lower limb (principal); N12 Tubulo-interstitial nephritis, not specified as acute or chronic; N18.4 Chronic kidney disease, stage 4 (severe); H20.9 Unspecified iridocyclitis; C64.9 Malignant neoplasm of unspecified kidney, except renal pelvis; I12.9 Hypertensive chronic kidney disease with stage 1 through stage 4 chronic kidney disease, or unspecified chronic kidney disease; L02.415 Cutaneous abscess of right lower limb; B95.62 Methicillin resistant Staphylococcus aureus infection as the cause of diseases classified elsewhere; N40.0 Benign prostatic hyperplasia without lower urinary tract symptoms; Z90.49 Acquired absence of other specified parts of digestive tract; Z92.21 Personal history of antineoplastic chemotherapy

== ENCOUNTER 2018-07-06 19:31 | Inpatient (IN) | payer MEDICARE, OTHER ==
[2018-07-06] MEDS ORDERED: Vancomycin 1gm in NS 250ml 1 GM/250 ML BAG IVPB STA (20:18)
--- NOTE | 2018-07-06 20:23 | ED PDOC ---
Arrival/HPI - General Chief Complaint: Lower Extremity Problem/Injury Time Seen by Provider: 07/06/18 20:13 Historian: Patient - History of Present Illness Narrative History of Present Illness (Text): 07/06/18 20:21 58 year old male, whose past medical history includes renal insufficiency, hypertension, and bronchitis, presents to the Emergency department with left leg cellulites. Patient states he was here a month ago for the same issue, with his right leg. Patient denies any knee pain. Patient also denies any fever, chills, headache, dizziness, chest pain, shortness of breath, cough, abdominal pain, nausea, vomiting, diarrhea, back pain, neck pain, urinary/bowel changes, or any other complaint. Time/Duration: Prior to Arrival Symptom Course: Unchanged Past Medical History - Provider Review Nursing Documentation Reviewed: Yes - Past History Past History: No Previous - Infectious Disease Hx of Infectious Diseases: None - Tetanus Immunization Tetanus Immunization: Unknown - Reproductive Currently Lactating: No - Cardiac Hx Cardiac Disorders: No Hx Hypertension: Yes - Pulmonary Hx Bronchitis: Yes - Neurological Hx Dizziness: Yes Hx Migraine: Yes - HEENT Hx HEENT Disorder: Yes (CELLULITIS TO LEFT EYE) Other/Comment: sx for deviated septum 4 yrs ago, c/o of having 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 after having deviated septum sx, has had for last 2 yrs recurrent migranes and uvitis, c/o photophobia, blurred vision r eye - Renal Hx Renal Disorder: Yes (RENAL INSUFFICIENCY) Hx Dialysis: No Other/Comment: kidney problem, 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 - Endocrine/Metabolic Hx Endocrine Disorders: No - Hematological/Oncological Hx Blood Transfusions: No Hx Blood Transfusion Reaction: No - Integumentary Hx Dermatological Disorder: (CELLULITIS TO L EYE 06-26-14,TATTOOS) Other/Comment: multiple tatoos - Musculoskeletal/Rheumatological Hx Falls: No - Gastrointestinal Hx Gastrointestinal Disorders: No Other/Comment: colonoscopy - Genitourinary/Gynecological Hx Genitourinary Disorders: Yes Hx Prostate Problems: (pt denies prostate problems) - Psychiatric Hx Psychophysiologic Disorder: No (OCCASIONAL BEERS) Hx Substance Use: No Other/Comment: in last 5 years lost his his job and his house - Surgical History Hx Cholecystectomy: Yes (2015) - Anesthesia Hx Anesthesia: Yes Hx Anesthesia Reactions: No Hx Malignant Hyperthermia: No - Suicidal Assessment Feels Threatened In Home Enviroment: No Family/Social History - Physician Review Nursing Documentation Reviewed: Yes Family/Social History: No Known Family HX Smoking Status: Never Smoked Hx Alcohol Use: Yes (occasional beer) Hx Substance Use: No Hx Substance Use Treatment: No Allergies/Home Meds Allergies/Adverse Reactions: Allergies No Known Allergies Allergy (Verified 03/18/18 15:50) Home Medications: Home Meds Medication Instructions Recorded Confirmed Alprazolam [Xanax] 0.25 mg PO PRN PRN 06/01/18 06/01/18 amLODIPine [Norvasc] 5 mg PO DAILY 06/01/18 06/01/18 oxyCODONE/Acetaminophen [Percocet 1 tab PO PRN PRN 06/01/18 06/01/18 5/325 mg Tab] predniSONE [predniSONE Tab] 5 mg PO DAILY 06/01/18 06/01/18 Review of Systems - Physician Review All systems were reviewed & negative as marked: Yes - Review of Systems Constitutional: Normal. absent: Fevers, Night Sweats Eyes: Normal ENT: Normal Respiratory: Normal. absent: SOB, Cough Cardiovascular: Normal. absent: Chest Pain Gastrointestinal: Normal. absent: Abdominal Pain, Diarrhea, Nausea, Vomiting Genitourinary Male: Normal. absent: Urinary Output Changes Musculoskeletal: Normal. absent: Back Pain, Neck Pain Skin: Cellulitis (above left knee) Neurological: Normal. absent: Headache, Dizziness Endocrine: Normal Hemo/Lymphatic: Normal Psychiatric: Normal Physical Exam Vital Signs Reviewed: Yes Vital Signs Temp Pulse Resp BP Pulse Ox 07/06/18 20:03 98.5 F 90 18 168/99 H 98 Temperature: Afebrile Blood Pressure: Normal Pulse: Regular Respiratory Rate: Normal Appearance: Positive for: Well-Appearing, Non-Toxic, Comfortable Pain Distress: None Mental Status: Positive for: Alert and Oriented X 3 - Systems Exam Head: Present: Atraumatic, Normocephalic Pupils: Present: PERRL Extroacular Muscles: Present: EOMI Conjunctiva: Present: Normal Mouth: Present: Moist Mucous Membranes Neck: Present: Normal Range of Motion Respiratory/Chest: Present: Clear to Auscultation, Good Air Exchange. No: Respiratory Distress, Accessory Muscle Use Cardiovascular: Present: Regular Rate and Rhythm, Normal S1, S2. No: Murmurs Abdomen: No: Tenderness, Distention, Peritoneal Signs Back: Present: Normal Inspection Upper Extremity: Present: Normal Inspection. No: Cyanosis, Edema Lower Extremity: Present: Edema (3cm edema above left knee) Neurological: Present: GCS=15, CN II-XII Intact, Speech Normal Skin: Present: Warm, Dry, Normal Color. No: Rashes Psychiatric: Present: Alert, Oriented x 3, Normal Insight, Normal Concentration Medical Decision Making ED Course and Treatment: 07/06/18 20:27 Impression: 58 year old male presents to the emergency department with cellulites on left leg. bedsid eus shows no drainable collection Plan: -- Labs -- Rocephin -- Vancomycin -- X-ray left knee -- Reassess and disposition Prior Visits: Notes and results from previous visits were reviewed. Progress Notes: 07/06/18 21:41 pt with h/ o of mrsa. no pain with leg rom, no clincial concern for septic knee. antibiotics doesed. discussed with pmd accepts - Lab Interpretations Lab Results: 07/06/18 20:45 07/06/18 20:45 Lab Results 07/06/18 20:45: Sodium 142, Potassium 4.7, Chloride 110 H, Carbon Dioxide 20 L, Anion Gap 17, BUN 37 H, Creatinine 3.1 H, Est GFR ( Amer) 25, Est GFR ( Non-Af Amer) 21, Random Glucose 102, Calcium 8.1 L, Total Bilirubin 0.8, AST 35 , ALT 17, Alkaline Phosphatase 60, Total Protein 7.2, Albumin 3.8, Globulin 3.4 , Albumin/Globulin Ratio 1.1 07/06/18 20:45: PT 11.7, INR 1.03, APTT 29.7 07/06/18 20:45: WBC 13.2 H, RBC 4.72, Hgb 14.0, Hct 39.9 L, MCV 84.5, MCH 29.7, MCHC 35.1, RDW 13.4, Plt Count 200, MPV 9.3, Gran % 75.8 H, Lymph % (Auto) 15.0 L, [place] % (Auto) 7.9 H, Eos % (Auto) 1.1 L, Baso % (Auto) 0.2, Gran # 10.02 H, Lymph # (Auto) 2.0, [place] # (Auto) 1.1 H, Eos # (Auto) 0.2, Baso # (Auto) 0.02 - RAD Interpretation Radiology Orders: 07/06/18 20:19 KNEE LEFT 2 VIEWS (AP & LAT) [RAD] Stat - Medication Orders Current Medication Orders: Vancomycin HCl (Vancomycin 1gm) 1 gm in 250 mls @ 167 mls/hr IVPB STAT STA PRN Reason: Protocol Stop: 07/06/18 21:47 Discontinued Medications Ceftriaxone Sodium (Rocephin 1 Gram Ivpb) 1 gm in 100 mls @ 100 mls/hr IVPB DAILY FINESSE PRN Reason: Protocol Ceftriaxone Sodium (Rocephin 1 Gram Ivpb) 1 gm in 100 mls @ 100 mls/hr IVPB STAT STA PRN Reason: Protocol Stop: 07/06/18 21:30 Last Admin: 07/06/18 21:28 Dose: 100 mls/hr eMAR Start Stop Document 07/06/18 21:28 RG (Rec: 07/06/18 21:35 [id number]) Intravenous Solution Start Date 07/06/18 Start Time 21:28 - Scribe Statement The provider has reviewed the documentation as recorded by the Rosalva Saleh Provider Scribe Attestation: All medical record entries made by the Scribreymundo were at my direction and personally dictated by me. I have reviewed the chart and agree that the record accurately reflects my personal performance of the history, physical exam, medical decision making, and the department course for this patient. I have also personally directed, reviewed, and agree with the discharge instructions and disposition. Disposition/Present on Arrival - Present on Arrival Any Indicators Present on Arrival: No History of DVT/PE: No History of Uncontrolled Diabetes: No Urinary Catheter: No History of Decub. Ulcer: No History Surgical Site Infection Following: None - Disposition Have Diagnosis and Disposition been Completed?: Yes Diagnosis: Cellulitis Disposition: HOSPITALIZED Disposition Time: 08:00 Condition: STABLE Discharge Instructions (ExitCare): Cellulitis (ED) Forms: [employer] (Kyr[place]z)
[2018-07-06] MEDS ORDERED: cefTRIAXone 1 gm 1 GM/100 ML BAG IVPB STA (20:32)
[2018-07-06 21:11] LABS: BASO # 0.02 K/mm3 (0.0-2.0); BASO % 0.2 % (0.0-3.0); EOS # 0.2 (0.0-0.7); EOS % 1.1 % (1.5-5.0); GRAN # 10.02 (1.4-6.5); GRAN % 75.8 % (50.0-68.0); MEAN CELL VOLUME 84.5 fl (80.0-105.0); MEAN CORPUSCULAR HEMOGLOBIN 29.7 pg (25.0-35.0); MEAN CORPUSCULAR HGB CONC 35.1 g/dl (31.0-37.0); MEAN PLATELET VOLUME 9.3 fl (7.0-11.0); MONO # 1.1 (0.1-0.6); MONO % 7.9 % (1.0-6.0); RBC 4.72 10^6/uL (3.5-6.1); RED CELL DISTRIBUTION WIDTH 13.4 % (11.5-14.5); WHITE BLOOD COUNT 13.2 10^3/ul (4.5-11.0)
[2018-07-06 21:16] LABS: INR 1.03; PARTIAL THROMBOPLASTIN TIME 29.7 Seconds (25.1-36.5); PROTHROMBIN TIME 11.7 SECONDS (9.4-12.5)
[2018-07-06 21:17] LABS: CALCIUM 8.1 mg/dL (8.4-10.5)
[2018-07-06 21:38] LABS: ALB/GLOB RATIO 1.1 (1.1-1.8); ALBUMIN 3.8 g/dL (3.0-4.8)
[2018-07-07 03:59] VITALS: BMI 25.8
[2018-07-07] MEDS ORDERED: cefTRIAXone 1 gm 1 GM/100 ML BAG IVPB SCH (10:00)
--- NOTE | 2018-07-07 10:46 | RAD ---
Date of service: 07/06/2018 PROCEDURE: Left Knee Radiographs. HISTORY: Pain. COMPARISON: None. FINDINGS: BONES: Bone alignment and mineralization are normal. There is no acute displaced fracture or bone destruction. JOINTS: Normal. No osteoarthritis. JOINT EFFUSION: None. OTHER FINDINGS: None. IMPRESSION: No acute fracture or dislocation.
[2018-07-07] MEDS ORDERED: Oxycodone/Acetaminophen 5/325 mg Tab PO PRN (12:02)
--- NOTE | 2018-07-07 15:13 | CP.PCM.CON ---
History of Present Illness - History of Present Illness History of Present Illness: Surgery Consult: Dr. Garcia Pt is a 58M with PMHx significant for HTN, IgG4 nephropathy, chronic uveitis & skin abscesses/cellulitis who presents to [facility] for pain above his Left knee. Pt states he was mowing the lawn a few days ago and cleaning when a stone hit him right above the Left knee. He cleaned the area with peroxide but on noticed that there was a small bump there. Over the next few days, the area became red and painful & he decided to come to the hospital today due to pain. Pt states that he had a similar episode last month that involved his R knee and needed aspiration with a needle by ortho. Pt also points out a small red spot on the tip of his nose that's painful. He denies any other associated symptoms of fevers/chills. Denies nausea, vomiting, chest pain or SOB. Surgery called to evaluate for L knee abscess. Currently, pt is resting comfortably. States he feels ok and only has pain upon palpation of the area around the abscess. He denies any active drainage from the abscess and has full mobility of his left knee/leg. No other complaints at this time. PMHx: as stated above PSHx: cholecystectomy SocialHx: denies tobacco use, social EtOH, denies drugs NKDA Review of Systems - Review of Systems All systems: reviewed and no additional remarkable complaints except (as per HPI ) Past Patient History - Infectious Disease Hx of Infectious Diseases: None - Tetanus Immunizations Tetanus Immunization: Unknown - Past Medical History & Family History Past Medical History?: Yes - Past Social History Smoking Status: Never Smoked Alcohol: Social Drugs: Denies - CARDIAC Hx Cardiac Disorders: No Hx Hypertension: Yes - NEUROLOGICAL Hx Migraine: Yes - HEENT Hx HEENT Problems: Yes (CELLULITIS TO LEFT EYE) Other/Comment: sx for deviated septum 4 yrs ago, c/o of having 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 after having deviated septum sx, has had for last 2 yrs recurrent migranes and uvitis, c/o photophobia, blurred vision r eye - RENAL Hx Chronic Kidney Disease: Yes Hx Dialysis: No Other/Comment: 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 - ENDOCRINE/METABOLIC Hx Endocrine Disorders: No - HEMATOLOGICAL/ONCOLOGICAL Hx Blood Disorders: Yes Hx Cancer: No Hx Chemotherapy: Yes - INTEGUMENTARY Other/Comment: multiple tatoos - MUSCULOSKELETAL/RHEUMATOLOGICAL Hx Falls: No - GASTROINTESTINAL Hx Gastrointestinal Disorders: No Other/Comment: colonoscopy - PSYCHIATRIC Hx Psychophysiologic Disorder: No Hx Substance Use: No Other/Comment: in last 5 years lost his his job and his house - SURGICAL HISTORY Hx Cholecystectomy: Yes (2016) - ANESTHESIA Hx Anesthesia: Yes Hx Anesthesia Reactions: No Hx Malignant Hyperthermia: No Meds Allergies/Adverse Reactions: Allergies Allergy/AdvReac Type Severity Reaction Status Date / Time No Known Allergies Allergy Verified 03/18/18 15:50 - Medications Medications: Current Medications Alprazolam (Xanax) 0.25 mg PO BID PRN; Protocol PRN Reason: Anxiety Stop: 07/14/18 12:03 Amlodipine Besylate (Norvasc) 5 mg PO DAILY FINESSE Last Admin: 07/07/18 13:31 Dose: 5 mg Ceftaroline Fosamil 200 mg/ (Sodium Chloride) 50 mls @ 50 mls/hr IVPB Q12H FINESSE PRN Reason: Protocol Stop: 07/13/18 23:31 Last Admin: 07/07/18 10:44 Dose: 50 mls/hr Oxycodone/Acetaminophen (Percocet 5/325 Mg Tab) 1 tab PO Q6 PRN PRN Reason: Pain, severe (8-10) Stop: 07/10/18 18:01 Physical Exam - Constitutional Appears: Well, No Acute Distress - Head Exam Head Exam: ATRAUMATIC, NORMOCEPHALIC - Eye Exam Eye Exam: Normal appearance - ENT Exam ENT Exam: Mucous Membranes Moist Additional comments: small pimple noted on the tip of nose with some erythema around - Respiratory Exam Respiratory Exam: NORMAL BREATHING PATTERN - Cardiovascular Exam Cardiovascular Exam: RRR - GI/Abdominal Exam GI & Abdominal Exam: Soft. absent: Tenderness - Extremities Exam Additional comments: 3x3 cm abscess noted above L knee; indurated w/o any fluctuance. Erythema w/o active drainage - Neurological Exam Neurological exam: Alert, Oriented x3 - Skin Skin Exam: Dry Results - Vital Signs Recent Vital Signs: Last Vital Signs Temp 97.6 F 07/07/18 07:27 Pulse 65 07/07/18 13:31 Resp 20 07/07/18 07:27 BP 148/92 H 07/07/18 13:31 Pulse Ox 98 07/07/18 07:27 - Labs Result Diagrams: 07/06/18 20:45 07/06/18 20:45 Assessment & Plan - Assessment and Plan (Free Text) Assessment: 58M with recurrent abscesses; presenting with small abscess above L knee Plan: - cont ABX per ID recs - warm compresses to left knee - will re-examine in AM for fluctuance after warm compresses for possible I&D - d/w Dr. Jose South
[2018-07-07] MEDS: Oxycodone/Acetaminophen 5/325 mg Tab PO PRN ×2 (16:55→22:57)
--- NOTE | 2018-07-07 20:00 | CON ---
Copied To: Afshin De La Garza MD Attending MD: Afshin De La Garza MD DATE: 07/07/2018 LOCATION: The patient is seen earlier today in room 560, bed 1. CHIEF COMPLAINT: Left leg infection times several days. HISTORY OF PRESENT ILLNESS: This is a 58-year-old male known to me from previous admission with a right leg MRSA infection and history of hypertension, bronchitis, history of renal insufficiency who was recently hospitalized in 05/2018 for right leg infection, which was resolved and did well. Now returns with a left leg infection. 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 The patient also with a history of uveitis of the left eye, periorbital cellulitis and BPH. The patient had sinusitis. The patient also had a kidney biopsy in the past and hernia surgery, left foot surgery and was hospitalized in 05/2018, was discharged in 05/2018 with MRSA soft tissue infection. Now returns with the opposite leg. The patient denies any nausea or vomiting, chest pain, shortness of breath or cough. No fevers and chills and no chest pain. No abdominal pain, diarrhea or constipation. PAST MEDICAL HISTORY: Significant for stage III kidney disease, IgG4-type associated tubulointerstitial nephritis, hypertension, bronchitis, uveitis, left eye periorbital cellulitis and BPH. PAST SURGICAL HISTORY: Significant for kidney biopsy, hernia surgery, left foot surgery. ALLERGIES: THE PATIENT HAS NO KNOWN ALLERGIES. MEDICATIONS AT HOME: Reviewed. PHYSICAL EXAMINATION: GENERAL: The patient is in bed. VITAL SIGNS: Temperature of 98, blood pressure is 150/80, respiratory rate of 18, heart rate of 70. HEENT: Unremarkable. NECK: Supple. LUNGS: Clear to auscultation and percussion. HEART: Normal S1, S2. ABDOMINAL: Soft, nontender. EXTREMITIES: Examination of the leg reveals a boil and abscess with erythema around it. Tender to touch. LABORATORY EXAMINATION: Reveals a white count of 13,200, hemoglobin of 14, platelets of 200. Coagulation is noted. Chemistries reveals a BUN of 37, creatinine of 3.1. The patient's creatinine has been elevated. It was 2.4 and 2.5 in 05/2018. Review of microbiology reveals the patient did have MRSA from the right knee, which was sensitive to Bactrim, clindamycin, resistant to erythromycin, sensitive to tetracycline, which with the patient was discharged on in the past. The patient had x-ray of the knee, which reveals no fractures and noncontributory. The patient also had an HIV test done in 05/2018, which was negative. ASSESSMENT AND PLAN: A 58-year-old male with a history of methicillin-resistant Staphylococcus aureus of the right leg, history of hypertension, bronchitis, history of stage III kidney disease, IgG4-type associated tubulointerstitial nephritis. The patient also with uveitis of the left eye, periorbital cellulitis and benign prostatic hypertrophy, presenting with left leg abscess and cellulitis, probable methicillin-resistant Staphylococcus aureus in a patient with leukocytosis and acute kidney injury with creatinine is changed from 2.4 to 3.1. We will treat with ceftaroline pending culture results and may need surgical evaluation to drain that abscess and we will follow with you. Afshin De La Garza MD
--- NOTE | 2018-07-08 04:26 | HP ---
Copied To: Dirk Hirsch MD Attending MD: Dirk Hirsch MD HISTORY OF PRESENT ILLNESS: The patient is a 58-year-old came to emergency room because of increasing pain, swelling in his nose. He states he had a little pimple and he tried to squeeze it out but the pain got worse and he also developed boil on his left thigh and that seemed to be increasing in size too. Denies any fever or chills. No history of nausea or vomiting. PAST MEDICAL HISTORY: He has significant past medical history of: 1. IgA nephropathy. 2. Hypertension. 3. Recurrent skin abscess. 4. Chronic uveitis. 5. History of anxiety disorder. ALLERGIES: HE IS NOT ALLERGIC TO ANY MEDICATIONS. MEDICATIONS AT HOME: He is on prednisone 5 mg daily, Percocet as needed, amlodipine 5 mg daily, doxycycline 100 twice a day, Xanax 0.25 twice day. PAST SURGICAL HISTORY: Significant for cholecystectomy. SOCIAL HISTORY: He lives by himself. He is a retired . No history of smoking or alcohol use. PHYSICAL EXAMINATION GENERAL: He is awake, alert, oriented, very pleasant, communicative. VITAL SIGNS: He is afebrile, pulse 66, respirations 20, blood pressure 148/92. LUNGS: Bilateral fair airflow. No rhonchi or crackle. HEART: S1 and S2 audible. ABDOMEN: Soft, nontender. No rebound, no guarding. NEUROLOGICAL: He is awake, alert, oriented, able to communicate. SKIN: He has nasal erythema, and he states it is very painful, and he also has abscess along with cellulitis in his left lower thigh anteriorly that has yellow spot in the middle. LABORATORY DATA: WBC 13.2, hemoglobin 14, hematocrit 39, platelet 200. PT 11.7, INR 1.03. Chemistry: Sodium 142, potassium 4.7, chloride 110, CO2 of 20, BUN 37, creatinine 3.1, blood sugar of 102, calcium 8.1. Thigh cultures are pending. ASSESSMENT: 1. Nasal cellulitis. 2. Left thigh abscess. 3. Hypertension. 4. Immunoglobulin A nephropathy. 5. Chronic kidney disease. 6. Anxiety disorder. PLAN: Currently the patient is on Teflaro. Surgical evaluation has been requested. Surgical evaluation was done and they recommended for warm compresses and possible I and D if there is fluctuation in the abscess. Dirk Hirsch MD
[2018-07-08] MEDS: Oxycodone/Acetaminophen 5/325 mg Tab PO PRN ×3 (05:22→22:34)
[2018-07-08 06:43] LABS: BASO # 0.02 K/mm3 (0.0-2.0); BASO % 0.2 % (0.0-3.0); EOS # 0.2 (0.0-0.7); EOS % 2.5 % (1.5-5.0); GRAN # 7.65 (1.4-6.5); GRAN % 79.7 % (50.0-68.0); HEMOGLOBIN 13.7 g/dL (14.0-18.0); LYMPH # 1.1 (1.2-3.4); LYMPH % 11.2 % (22.0-35.0); MEAN CELL VOLUME 84.3 fl (80.0-105.0); MEAN CORPUSCULAR HGB CONC 34.4 g/dl (31.0-37.0); MEAN PLATELET VOLUME 9.3 fl (7.0-11.0); MONO # 0.6 (0.1-0.6); MONO % 6.4 % (1.0-6.0); RBC 4.72 10^6/uL (3.5-6.1); RED CELL DISTRIBUTION WIDTH 13.1 % (11.5-14.5); WHITE BLOOD COUNT 9.6 10^3/ul (4.5-11.0)
[2018-07-08 07:21] LABS: CALCIUM 8.7 mg/dL (8.4-10.5)
--- NOTE | 2018-07-08 16:36 | PN ---
Copied To: Afshin De La Garza MD Attending MD: Afshin De La Garza MD DATE: 07/08/2018 SUBJECTIVE: The patient is in bed, in no acute distress. PHYSICAL EXAMINATION: VITAL SIGNS: Temperature is 97, blood pressure is 160/100, respiratory rate of 18. HEENT: Unremarkable. NECK: Supple. LUNGS: Have decreased breath sounds. HEART: Normal S1, S2. ABDOMEN: Soft, nontender. LABORATORY DATA: Reveals the white count is down to 9.6, hemoglobin is noted. Chemistries are creatinine is 2.6 and microbiology reveals the wound culture is pending. The blood cultures are negative. ASSESSMENT AND PLAN: A 58-year-old male with history of methicillin-resistant Staphylococcus aureus from the right leg, history of hypertension, bronchitis, stage 3 kidney disease, IgG 4 type associated tubulointerstitial nephritis, history of uveitis of left eye, history of periorbital cellulitis, and benign prostatic hypertrophy, presenting with left leg abscess and cellulitis, and leukocytosis which is resolved and acute kidney injury which is improving on ceftaroline. I am waiting for a possible incision and drainage and wound culture. Afshin De La Garza MD
--- NOTE | 2018-07-08 18:32 | PN ---
Copied To: Dirk Hirsch MD Attending MD: Dirk Hirsch MD DATE: 07/08/2018 SUBJECTIVE: The patient is a 58-year-old, seen and examined, lying in bed, seems to be comfortable. No fever, no chills, no nausea or vomiting. No diarrhea. He does complain of pain in the left thigh area where he has a big boil. PHYSICAL EXAMINATION: VITAL SIGNS: He is afebrile, pulse 71, respirations 160/98. LUNGS: Bilateral good airflow. No rhonchi or crackle. HEART: S1 and S2 audible. ABDOMEN: Soft, nontender. No rebound, no guarding. NEUROLOGIC: He is awake, alert, oriented. Able to communicate. SKIN: His nasal erythema seems to be improving. His left thigh boil has shrunken in size, seems to be dull red with central yellow point. LABORATORY DATA: WBC is 9.6, hemoglobin 13.7, hematocrit 39.8, platelet 163. Chemistry: Sodium 143, potassium 4.9, chloride 109, CO2 of 25, BUN 31, creatinine 2.6, blood sugar of 96. ASSESSMENT: 1. Nasal tip cellulitis. 2. Chronic kidney disease. 3. Left thigh abscess. 4. Leukocytosis, improving. 5. IgA nephropathy. 6. Anxiety disorder. PLAN: Currently, the patient is on Teflaro as per ID. Surgical input noted and appreciated. Plan for possible I and D in a.m. Dirk Hirsch MD
--- NOTE | 2018-07-09 05:28 | CP.PCM.PN ---
Subjective - Date & Time of Evaluation Date of Evaluation: 07/08/18 Time of Evaluation: 07:24 - Subjective Subjective: General Surgery Progress Note for This 58M was seen and examined this Am at bedside oacute events overnight. He reports that the warm compresses is helping his skin lesions. He denies any drdrainage. He denies any chest pain SOB,nausea vomiting or diarrhea. Objective - Vital Signs/Intake and Output Vital Signs (last 24 hours): Temp Pulse Resp BP Pulse Ox 98.4 F 70 18 167/92 H 96 07/08/18 21:49 07/08/18 21:49 07/08/18 21:49 07/08/18 21:49 07/08/18 21:49 Intake and Output: 07/08/18 07/09/18 18:59 06:59 Intake Total 620 Balance 620 - Medications Medications: Current Medications Alprazolam (Xanax) 0.25 mg PO BID PRN; Protocol PRN Reason: Anxiety Stop: 07/14/18 12:03 Amlodipine Besylate (Norvasc) 10 mg PO DAILY [facility] Ceftaroline Fosamil 200 mg/ (Sodium Chloride) 50 mls @ 50 mls/hr IVPB Q12H [facility] PRN Reason: Protocol Stop: 07/13/18 23:31 Last Admin: 07/08/18 22:34 Dose: 50 mls/hr Mupirocin (Bactroban Ointment) 0 gm TOP BID [facility] Oxycodone/Acetaminophen (Percocet 5/325 Mg Tab) 1 tab PO Q6 PRN PRN Reason: Pain, severe (8-10) Stop: 07/10/18 18:01 Last Admin: 07/08/18 22:34 Dose: 1 tab - Labs Labs: 07/08/18 06:00 07/08/18 06:00 PT 11.7 SECONDS (9.4-12.5) 07/06/18 20:45 INR 1.03 07/06/18 20:45 APTT 29.7 Seconds (25.1-36.5) 07/06/18 20:45 - Constitutional Appears: Non-toxic, No Acute Distress - Head Exam Head Exam: ATRAUMATIC, NORMOCEPHALIC - Eye Exam Eye Exam: EOMI - ENT Exam ENT Exam: Mucous Membranes Moist - Respiratory Exam Respiratory Exam: NORMAL BREATHING PATTERN - Cardiovascular Exam Cardiovascular Exam: +S1, +S2 - GI/Abdominal Exam GI & Abdominal Exam: Soft. absent: Distended, Firm, Guarding, Rigid, Tenderness - Extremities Exam Additional comments: Erthematous, non fluctant abscess with defined induration on the LLE - Neurological Exam Neurological Exam: Alert, Awake - Psychiatric Exam Psychiatric exam: Normal Affect, Normal Mood - Skin Skin Exam: Dry, Intact Assessment and Plan - Assessment and Plan (Free Text) Assessment: 58M with developing abscess on the LLE Warm compresses ABX Mupirocin on wound Continue medical care per medical team Will continue to follow Further recs per Dr. Jose Steele PGY3
--- NOTE | 2018-07-09 07:47 | CP.PCM.PN ---
Subjective - Date & Time of Evaluation Date of Evaluation: 07/09/18 Time of Evaluation: 06:55 - Subjective Subjective: General Surgery Progress Note for Patient was seen and examined at bedside. No acute events overnight. He reports pain but controlled with medication. He reports that the warm compresses are helping. He states lesion has becmae raised. He denies any drainage. Denies fever/chills, chest pain, SOB, palpitations, nausea/vomiting or diarrhea. Objective - Vital Signs/Intake and Output Vital Signs (last 24 hours): Temp Pulse Resp BP Pulse Ox 98.4 F 70 18 167/92 H 96 07/08/18 21:49 07/08/18 21:49 07/08/18 21:49 07/08/18 21:49 07/08/18 21:49 Intake and Output: 07/09/18 07/09/18 06:59 18:59 Intake Total 910 Balance 910 - Medications Medications: Current Medications Alprazolam (Xanax) 0.25 mg PO BID PRN; Protocol PRN Reason: Anxiety Stop: 07/14/18 12:03 Amlodipine Besylate (Norvasc) 10 mg PO DAILY [facility] Ceftaroline Fosamil 200 mg/ (Sodium Chloride) 50 mls @ 50 mls/hr IVPB Q12H [facility] PRN Reason: Protocol Stop: 07/13/18 23:31 Last Admin: 07/08/18 22:34 Dose: 50 mls/hr Mupirocin (Bactroban Ointment) 0 gm TOP BID [facility] Oxycodone/Acetaminophen (Percocet 5/325 Mg Tab) 1 tab PO Q6 PRN PRN Reason: Pain, severe (8-10) Stop: 07/10/18 18:01 Last Admin: 07/08/18 22:34 Dose: 1 tab - Labs Labs: 07/08/18 06:00 07/08/18 06:00 PT 11.7 SECONDS (9.4-12.5) 07/06/18 20:45 INR 1.03 07/06/18 20:45 APTT 29.7 Seconds (25.1-36.5) 07/06/18 20:45 - Additional Findings Additional findings: - Constitutional Appears: Non-toxic, No Acute Distress - Head Exam Head Exam: ATRAUMATIC, NORMOCEPHALIC - Eye Exam Eye Exam: EOMI - ENT Exam ENT Exam: Mucous Membranes Moist - Respiratory Exam Respiratory Exam: NORMAL BREATHING PATTERN - Cardiovascular Exam Cardiovascular Exam: +S1, +S2 - GI/Abdominal Exam GI & Abdominal Exam: Soft. absent: Distended, Firm, Guarding, Rigid, Tenderness - Extremities Exam Additional comments: Erythema, fluctance, and induration present with raised lesion on the LLE - Neurological Exam Neurological Exam: Alert, Awake - Psychiatric Exam Psychiatric exam: Normal Affect, Normal Mood - Skin Skin Exam: Dry, Intact Assessment and Plan - Assessment and Plan (Free Text) Assessment: 58M with developing abscess on the LLE Plan for bedside I&D with packing today Warm compresses Continue ABX Mupirocin on wound Further recommendations as per Dr. Jose Sherwood PGY2
[2018-07-09 08:03] VITALS: RESP 20
[2018-07-09] MEDS ORDERED: HYDROmorphone 1 mg/ml ISec IVP ONE (08:57)
[2018-07-09 09:15] LABS: BASO # 0.02 K/mm3 (0.0-2.0); BASO % 0.2 % (0.0-3.0); EOS # 0.1 (0.0-0.7); EOS % 1.5 % (1.5-5.0); GRAN # 7.53 (1.4-6.5); GRAN % 81.7 % (50.0-68.0); HEMOGLOBIN 14.5 g/dL (14.0-18.0); LYMPH # 1.1 (1.2-3.4); LYMPH % 11.7 % (22.0-35.0); MEAN CELL VOLUME 84.6 fl (80.0-105.0); MEAN CORPUSCULAR HEMOGLOBIN 29.3 pg (25.0-35.0); MEAN CORPUSCULAR HGB CONC 34.6 g/dl (31.0-37.0); MONO # 0.5 (0.1-0.6); MONO % 4.9 % (1.0-6.0); RBC 4.95 10^6/uL (3.5-6.1); WHITE BLOOD COUNT 9.2 10^3/ul (4.5-11.0)
[2018-07-09 09:29] LABS: ALB/GLOB RATIO 1.2 (1.1-1.8); CALCIUM 9.3 mg/dL (8.4-10.5)
--- NOTE | 2018-07-09 09:46 | PCM.SURG1 ---
Surgeon's Initial Post Op Note - Surgeon's Notes Surgeon: Dr. Garcia Budget Clerk: Kaela PGY2 Type of Anesthesia: Local Pre-Operative Diagnosis: Left lower extremity abscess Operative Findings: Left lower extremity abscess Post-Operative Diagnosis: Left lower extremity abscess Operation Performed: Bedside Incision & drainage with irrgation and packing Specimen/Specimens Removed: wound culture Estimated Blood Loss: EBL {In ML}: 3 Blood Products Given: N/A Drains Used: No Drains Post-Op Condition: Good Date of Surgery/Procedure: 07/09/18 Time of Surgery/Procedure: 09:46
--- NOTE | 2018-07-09 10:34 | CP.PCM.PN ---
<Romaine Fajardo - Last Filed: 07/09/18 10:30> Subjective - Date & Time of Evaluation Date of Evaluation: 07/09/18 Time of Evaluation: 10:30 - Subjective Subjective: Progress note for Dr. Benton Patient seen and examined at bedside. Patient complaining of mild pain in left thigh. Patient admits to drainage from wound on left thigh. Denies chest pain, shortness of breath, nausea, vomiting, diarrhea, fever, chills. Objective - Vital Signs/Intake and Output Vital Signs (last 24 hours): Temp Pulse Resp BP Pulse Ox 97.9 F 66 20 147/90 98 07/09/18 06:00 07/09/18 06:00 07/09/18 06:00 07/09/18 06:00 07/09/18 06:00 Intake and Output: 07/09/18 07/09/18 06:59 18:59 Intake Total 910 Balance 910 - Medications Medications: Current Medications Alprazolam (Xanax) 0.25 mg PO BID PRN; Protocol PRN Reason: Anxiety Stop: 07/14/18 12:03 Amlodipine Besylate (Norvasc) 10 mg PO DAILY [facility] Ceftaroline Fosamil 200 mg/ (Sodium Chloride) 50 mls @ 50 mls/hr IVPB Q12H [facility] PRN Reason: Protocol Stop: 07/13/18 23:31 Last Admin: 07/08/18 22:34 Dose: 50 mls/hr Mupirocin (Bactroban Ointment) 0 gm TOP BID [facility] Oxycodone/Acetaminophen (Percocet 5/325 Mg Tab) 1 tab PO Q6 PRN PRN Reason: Pain, severe (8-10) Stop: 07/10/18 18:01 Last Admin: 07/08/18 22:34 Dose: 1 tab Prednisone (Prednisone Tab) 10 mg PO DAILY [facility] - Labs Labs: 07/09/18 09:00 07/09/18 09:00 PT 11.7 SECONDS (9.4-12.5) 07/06/18 20:45 INR 1.03 07/06/18 20:45 APTT 29.7 Seconds (25.1-36.5) 07/06/18 20:45 - Constitutional Appears: Non-toxic, No Acute Distress - Head Exam Head Exam: ATRAUMATIC, NORMAL INSPECTION, NORMOCEPHALIC - ENT Exam ENT Exam: Mucous Membranes Moist, Normal Exam Additional comments: Cellulitis of tip of nose - Respiratory Exam Respiratory Exam: Clear to Ausculation Bilateral, NORMAL BREATHING PATTERN. absent: Rales, Rhonchi, Wheezes - Cardiovascular Exam Cardiovascular Exam: RRR, +S1, +S2 - GI/Abdominal Exam GI & Abdominal Exam: Soft, Normal Bowel Sounds. absent: Tenderness - Extremities Exam Extremities Exam: Normal Inspection. absent: Pedal Edema - Neurological Exam Neurological Exam: Alert, Awake, Oriented x3 - Psychiatric Exam Psychiatric exam: Normal Affect, Normal Mood - Skin Additional comments: Left thigh with 3 cm erythematous wound with fluctuance. Assessment and Plan - Assessment and Plan (Free Text) Plan: 1. Cellulitis of nose and left thigh with abscess 2. Chronic kidney disease, stage 4 3. HTN 4. Anxiety Patient will continue to be on Teflaro as per ID for cellultis. Wound cultures from left thigh are positive for MRSA. Patient currently being followed by surgery who will perform bedside I and D. We will continue current medical regimen and monitor closely. Tana, PGY-3 <Jeovany Benton S - Last Filed: 07/09/18 20:25> Objective - Vital Signs/Intake and Output Vital Signs (last 24 hours): Temp Pulse Resp BP Pulse Ox 97.6 F 65 20 146/91 H 97 07/09/18 14:00 07/09/18 14:00 07/09/18 14:00 07/09/18 14:00 07/09/18 14:00 - Medications Medications: Current Medications Alprazolam (Xanax) 0.25 mg PO BID PRN; Protocol PRN Reason: Anxiety Stop: 07/14/18 12:03 Amlodipine Besylate (Norvasc) 10 mg PO DAILY [facility] Last Admin: 07/09/18 11:05 Dose: 10 mg Ceftaroline Fosamil 200 mg/ (Sodium Chloride) 50 mls @ 50 mls/hr IVPB Q12H [facility] PRN Reason: Protocol Stop: 07/13/18 23:31 Last Admin: 07/09/18 11:05 Dose: 50 mls/hr Mupirocin (Bactroban Ointment) 0 gm TOP BID [facility] Last Admin: 08/27/18 17:50 Dose: Not Given Oxycodone/Acetaminophen (Percocet 5/325 Mg Tab) 1 tab PO Q6 PRN PRN Reason: Pain, severe (8-10) Stop: 07/10/18 18:01 Last Admin: 07/08/18 22:34 Dose: 1 tab Prednisone (Prednisone Tab) 10 mg PO DAILY [facility] Last Admin: 07/09/18 11:04 Dose: 10 mg - Labs Labs: 07/09/18 09:00 07/09/18 09:00 PT 11.7 SECONDS (9.4-12.5) 07/06/18 20:45 INR 1.03 07/06/18 20:45 APTT 29.7 Seconds (25.1-36.5) 07/06/18 20:45 Assessment and Plan - Assessment and Plan (Free Text) Plan: Pt seen and examined. I have reviewed the note of the medical sales specialist and agree with it. I have discussed the assessment and plan with the resident. I have reviewed the patient's labs and medications. Pt with abscess on L leg. He is on Abx and is going to the OR. He has CKD3-4 and unable to tolerate HENRRY due to high K. He is aware that he has a progressive illness that will lead to dialysis. Surgery is following the pt.
[2018-07-09] MEDS: Mupirocin 2% Ointment 15 GM TUBE TOP SCH ×2 (11:04→17:50)
[2018-07-09] MEDS: Oxycodone/Acetaminophen 5/325 mg Tab PO PRN (22:12)
--- NOTE | 2018-07-10 00:09 | PN ---
Copied To: Afshin De La Garza MD Attending MD: Afshin De La Garza MD DATE: 07/09/2018 SUBJECTIVE: The patient is in bed in no acute distress, nontoxic. PHYSICAL EXAMINATION: VITAL SIGNS: Temperature is 97, blood pressure is 140/90, respiratory rate of 20. HEENT: Unremarkable. NECK: Supple. LUNGS: Have decreased breath sounds. HEART: Normal S1, S2. ABDOMEN: Soft. LABORATORY EXAMINATION: Reveals a white count is 9, hemoglobin of 14. Chemistries are noted. Microbiology reveals MRSA from the left thigh and blood cultures are negative. MRSA is sensitive to tetracycline. ASSESSMENT AND PLAN: A 58-year-old male with a history of methicillin-resistant Staphylococcus aureus from his right leg, history of hypertension, bronchitis, stage III kidney disease, IgG type 4 associated tubulointerstitial nephritis, history of uveitis of the left eye, history of periorbital cellulitis and benign prostatic hypertrophy, presenting with a left leg abscess and cellulitis, leukocytosis and acute kidney injury and now with methicillin-resistant Staphylococcus aureus and maybe able to switch to p.o. doxycycline to complete therapy status post incision and drainage. Afshin De La Garza MD
[2018-07-10] MEDS: Oxycodone/Acetaminophen 5/325 mg Tab PO PRN (02:21)
[2018-07-10 07:28] LABS: BASO # 0.02 K/mm3 (0.0-2.0); BASO % 0.2 % (0.0-3.0); EOS # 0.2 (0.0-0.7); EOS % 1.7 % (1.5-5.0); GRAN # 7.64 (1.4-6.5); GRAN % 76.6 % (50.0-68.0); HEMOGLOBIN 14.3 g/dL (14.0-18.0); LYMPH # 1.4 (1.2-3.4); LYMPH % 14.2 % (22.0-35.0); MEAN CELL VOLUME 83.4 fl (80.0-105.0); MEAN CORPUSCULAR HEMOGLOBIN 29.3 pg (25.0-35.0); MEAN CORPUSCULAR HGB CONC 35.1 g/dl (31.0-37.0); MEAN PLATELET VOLUME 8.8 fl (7.0-11.0); MONO # 0.7 (0.1-0.6); MONO % 7.3 % (1.0-6.0); RBC 4.88 10^6/uL (3.5-6.1); RED CELL DISTRIBUTION WIDTH 12.8 % (11.5-14.5)
[2018-07-10 07:57] LABS: ALB/GLOB RATIO 1.2 (1.1-1.8); CALCIUM 9.3 mg/dL (8.4-10.5)
--- NOTE | 2018-07-10 08:19 | CP.PCM.DIS ---
<Romaine Fajardo - Last Filed: 07/10/18 08:34> Provider - Provider Date of Admission: 07/06/18 21:39 Attending physician: Jeovany Benton MD Primary care physician: Jeovany Benton MD Consults: ID - Dr. De La Garza Surgery - Dr. Loomis Time Spent in preparation of Discharge (in minutes): 45 Diagnosis - Discharge Diagnosis (1) Cellulitis Status: Acute (2) Chronic renal failure Status: Chronic (3) Uveitis Status: Chronic Hospital Course - Lab Results Lab Results: Micro Results 07/09/18 09:30 Leg - Left Gram Stain - Final 07/07/18 01:20 Thigh - Left Gram Stain - Final 07/07/18 01:20 Thigh - Left Wound Culture - Final Methicillin Resistant S Aureus Most Recent Lab Values WBC 10.0 10^3/ul (4.5-11.0) 07/10/18 07:20 RBC 4.88 10^6/uL (3.5-6.1) 07/10/18 07:20 Hgb 14.3 g/dL (14.0-18.0) 07/10/18 07:20 Hct 40.7 % (42.0-52.0) L 07/10/18 07:20 MCV 83.4 fl (80.0-105.0) 07/10/18 07:20 MCH 29.3 pg (25.0-35.0) 07/10/18 07:20 MCHC 35.1 g/dl (31.0-37.0) 07/10/18 07:20 RDW 12.8 % (11.5-14.5) 07/10/18 07:20 Plt Count 183 10^3/uL (120.0-450.0) 07/10/18 07:20 MPV 8.8 fl (7.0-11.0) 07/10/18 07:20 Gran % 76.6 % (50.0-68.0) H 07/10/18 07:20 Lymph % (Auto) 14.2 % (22.0-35.0) L 07/10/18 07:20 [place] % (Auto) 7.3 % (1.0-6.0) H 07/10/18 07:20 Eos % (Auto) 1.7 % (1.5-5.0) 07/10/18 07:20 Baso % (Auto) 0.2 % (0.0-3.0) 07/10/18 07:20 Gran # 7.64 (1.4-6.5) H 07/10/18 07:20 Lymph # (Auto) 1.4 (1.2-3.4) 07/10/18 07:20 [place] # (Auto) 0.7 (0.1-0.6) H 07/10/18 07:20 Eos # (Auto) 0.2 (0.0-0.7) 07/10/18 07:20 Baso # (Auto) 0.02 K/mm3 (0.0-2.0) 07/10/18 07:20 PT 11.7 SECONDS (9.4-12.5) 07/06/18 20:45 INR 1.03 07/06/18 20:45 APTT 29.7 Seconds (25.1-36.5) 07/06/18 20:45 Sodium 145 mmol/L (132-148) 07/10/18 07:20 Potassium 4.4 mmol/L (3.6-5.0) 07/10/18 07:20 Chloride 107 mmol/L (98-107) 07/10/18 07:20 Carbon Dioxide 25 mmol/L (21-33) 07/10/18 07:20 Anion Gap 18 (10-20) 07/10/18 07:20 BUN 30 mg/dL (7-21) H 07/10/18 07:20 Creatinine 2.3 mg/dl (0.8-1.5) H 07/10/18 07:20 Est GFR ( Amer) 36 07/10/18 07:20 Est GFR (Non-Af Amer) 30 07/10/18 07:20 Random Glucose 96 mg/dL (70-110) 07/10/18 07:20 Calcium 9.3 mg/dL (8.4-10.5) 07/10/18 07:20 Phosphorus 3.0 mg/dL (2.5-4.5) 07/08/18 06:00 Magnesium 1.8 mg/dL (1.7-2.2) 07/08/18 06:00 Total Bilirubin 0.5 mg/dL (0.2-1.3) 07/10/18 07:20 AST 13 U/L (17-59) L 07/10/18 07:20 ALT 18 U/L (7-56) 07/10/18 07:20 Alkaline Phosphatase 61 U/L (38-126) 07/10/18 07:20 Total Protein 7.2 g/dL (5.8-8.3) 07/10/18 07:20 Albumin 4.0 g/dL (3.0-4.8) 07/10/18 07:20 Globulin 3.2 gm/dL 07/10/18 07:20 Albumin/Globulin Ratio 1.2 (1.1-1.8) 07/10/18 07:20 - Hospital Course Hospital Course: 58 year old male with past medical history of IgG4 tubulointerstitial nephritis , chronic uveitis, hypertension, and anxiety presented to the hospital for left thigh abscess with cellulitis along with nasal tip cellulitis. Culture of left thigh wound showed MRSA. Patient was placed on IV Teflaro. Patient evaluated by surgery who performed I and D. Patient will be placed on 5 day course of Doxycycline as per ID. Discharge Exam - Head Exam Head Exam: ATRAUMATIC, NORMAL INSPECTION, NORMOCEPHALIC - Eye Exam Eye Exam: EOMI, Normal appearance - ENT Exam ENT Exam: Mucous Membranes Moist Additional comments: Nasal tip cellulitis improving - Respiratory Exam Respiratory Exam: NORMAL BREATHING PATTERN, UNREMARKABLE - Cardiovascular Exam Cardiovascular Exam: RRR, +S1, +S2 - GI/Abdominal Exam GI & Abdominal Exam: Normal Bowel Sounds, Unremarkable - Extremities Exam Additional comments: Left thigh wound, packed and bandaged. - Neurological Exam Neurological exam: Alert, CN II-XII Intact, Oriented x3 - Psychiatric Exam Psychiatric exam: Normal Affect, Normal Mood - Skin Skin Exam: Intact, Normal Color, Warm Discharge Plan - Follow Up Plan Condition: STABLE Disposition: HOME/ ROUTINE Instructions: Pneumococcal Conjugate Vaccine (13-Valent), Cellulitis (Skin Infection), Adult (DC) Additional Instructions: Ok to pull packing in wound daily, little by little. Cont PO ABX. Referrals: Jeovany Benton MD [Primary Care Provider] - <Jeovany Benton - Last Filed: 07/10/18 19:16> Provider - Provider Date of Admission: 07/06/18 21:39 Attending physician: Jeovany Benton MD Primary care physician: Jeovany Benton MD Hospital Course - Lab Results Lab Results: Micro Results 07/09/18 09:30 Leg - Left Gram Stain - Final 07/09/18 09:30 Leg - Left Wound Culture - Preliminary Gram Pos Cocci In Clusters 07/07/18 01:20 Thigh - Left Gram Stain - Final 07/07/18 01:20 Thigh - Left Wound Culture - Final Methicillin Resistant S Aureus Most Recent Lab Values WBC 10.0 10^3/ul (4.5-11.0) 07/10/18 07:20 RBC 4.88 10^6/uL (3.5-6.1) 07/10/18 07:20 Hgb 14.3 g/dL (14.0-18.0) 07/10/18 07:20 Hct 40.7 % (42.0-52.0) L 07/10/18 07:20 MCV 83.4 fl (80.0-105.0) 07/10/18 07:20 MCH 29.3 pg (25.0-35.0) 07/10/18 07:20 MCHC 35.1 g/dl (31.0-37.0) 07/10/18 07:20 RDW 12.8 % (11.5-14.5) 07/10/18 07:20 Plt Count 183 10^3/uL (120.0-450.0) 07/10/18 07:20 MPV 8.8 fl (7.0-11.0) 07/10/18 07:20 Gran % 76.6 % (50.0-68.0) H 07/10/18 07:20 Lymph % (Auto) 14.2 % (22.0-35.0) L 07/10/18 07:20 [place] % (Auto) 7.3 % (1.0-6.0) H 07/10/18 07:20 Eos % (Auto) 1.7 % (1.5-5.0) 07/10/18 07:20 Baso % (Auto) 0.2 % (0.0-3.0) 07/10/18 07:20 Gran # 7.64 (1.4-6.5) H 07/10/18 07:20 Lymph # (Auto) 1.4 (1.2-3.4) 07/10/18 07:20 [place] # (Auto) 0.7 (0.1-0.6) H 07/10/18 07:20 Eos # (Auto) 0.2 (0.0-0.7) 07/10/18 07:20 Baso # (Auto) 0.02 K/mm3 (0.0-2.0) 07/10/18 07:20 PT 11.7 SECONDS (9.4-12.5) 07/06/18 20:45 INR 1.03 07/06/18 20:45 APTT 29.7 Seconds (25.1-36.5) 07/06/18 20:45 Sodium 145 mmol/L (132-148) 07/10/18 07:20 Potassium 4.4 mmol/L (3.6-5.0) 07/10/18 07:20 Chloride 107 mmol/L (98-107) 07/10/18 07:20 Carbon Dioxide 25 mmol/L (21-33) 07/10/18 07:20 Anion Gap 18 (10-20) 07/10/18 07:20 BUN 30 mg/dL (7-21) H 07/10/18 07:20 Creatinine 2.3 mg/dl (0.8-1.5) H 07/10/18 07:20 Est GFR ( Amer) 36 07/10/18 07:20 Est GFR (Non-Af Amer) 30 07/10/18 07:20 Random Glucose 96 mg/dL (70-110) 07/10/18 07:20 Calcium 9.3 mg/dL (8.4-10.5) 07/10/18 07:20 Phosphorus 3.0 mg/dL (2.5-4.5) 07/08/18 06:00 Magnesium 1.8 mg/dL (1.7-2.2) 07/08/18 06:00 Total Bilirubin 0.5 mg/dL (0.2-1.3) 07/10/18 07:20 AST 13 U/L (17-59) L 07/10/18 07:20 ALT 18 U/L (7-56) 07/10/18 07:20 Alkaline Phosphatase 61 U/L (38-126) 07/10/18 07:20 Total Protein 7.2 g/dL (5.8-8.3) 07/10/18 07:20 Albumin 4.0 g/dL (3.0-4.8) 07/10/18 07:20 Globulin 3.2 gm/dL 07/10/18 07:20 Albumin/Globulin Ratio 1.2 (1.1-1.8) 07/10/18 07:20
--- NOTE | 2018-07-10 08:50 | CP.PCM.PN ---
Subjective - Date & Time of Evaluation Date of Evaluation: 07/10/18 Time of Evaluation: 08:47 - Subjective Subjective: Surgery: Dr. Garcia Pt seen and examined. No acute overnight events. States he feels well and denies any pain at the Left knee abscess site. Able to ambulate, denies other complaints. Denies N/V, F/C. Objective - Vital Signs/Intake and Output Vital Signs (last 24 hours): Temp Pulse Resp BP Pulse Ox 98.1 F 74 20 146/92 H 97 07/09/18 21:55 07/09/18 23:00 07/09/18 21:55 07/09/18 23:00 07/09/18 21:55 Intake and Output: 07/10/18 07/10/18 06:59 18:59 Intake Total 1320 Balance 1320 - Medications Medications: Current Medications Alprazolam (Xanax) 0.25 mg PO BID PRN; Protocol PRN Reason: Anxiety Stop: 07/14/18 12:03 Amlodipine Besylate (Norvasc) 10 mg PO DAILY [facility] Last Admin: 07/09/18 11:05 Dose: 10 mg Ceftaroline Fosamil 200 mg/ (Sodium Chloride) 50 mls @ 50 mls/hr IVPB Q12H [facility] PRN Reason: Protocol Stop: 07/13/18 23:31 Last Admin: 07/09/18 23:27 Dose: 50 mls/hr Mupirocin (Bactroban Ointment) 0 gm TOP BID [facility] Last Admin: 07/09/18 17:50 Dose: Not Given Oxycodone/Acetaminophen (Percocet 5/325 Mg Tab) 1 tab PO Q6 PRN PRN Reason: Pain, severe (8-10) Stop: 07/10/18 18:01 Last Admin: 07/10/18 02:21 Dose: 1 tab Prednisone (Prednisone Tab) 10 mg PO DAILY [facility] Last Admin: 07/09/18 11:04 Dose: 10 mg - Labs Labs: 07/10/18 07:20 07/10/18 07:20 PT 11.7 SECONDS (9.4-12.5) 07/06/18 20:45 INR 1.03 07/06/18 20:45 APTT 29.7 Seconds (25.1-36.5) 07/06/18 20:45 - Constitutional Appears: Well, No Acute Distress - Head Exam Head Exam: ATRAUMATIC, NORMOCEPHALIC - ENT Exam ENT Exam: Mucous Membranes Moist - Respiratory Exam Respiratory Exam: NORMAL BREATHING PATTERN - Cardiovascular Exam Cardiovascular Exam: RRR - GI/Abdominal Exam GI & Abdominal Exam: Soft - Extremities Exam Additional comments: Left above knee abscess s/p I&D with packing in place - Neurological Exam Neurological Exam: Alert, Awake, Oriented x3 - Skin Skin Exam: Dry, Warm Assessment and Plan - Assessment and Plan (Free Text) Assessment: 58M s/p left above knee abscess I&D; POD#1 Plan: - ok to DC home from surgical standpoint - remove packing slowly from wound daily - PO ABX per ID recs - d/w Dr. Jose South
[2018-07-10 09:27] VITALS: BP 155/98; PULSE 64; TEMP 98.2; O2SAT 99
--- NOTE | 2018-07-10 14:00 | PN ---
Copied To: Afshin De La Garza MD Attending MD: Afshin De La Garza MD DATE: 07/10/2018 SUBJECTIVE: The patient is seen earlier this morning in room 571, bed 2. No fevers and no chills. No nausea, no vomiting. PHYSICAL EXAMINATION: VITAL SIGNS: Temperature is 98, blood pressure is 150/90, respiratory rate 20, heart rate of 64. HEENT: Examination is unremarkable. NECK: Supple. LUNGS: Have decreased breath sounds. HEART: Normal S1, S2. ABDOMEN: Soft, nontender. DATA: Laboratory examination reveals a white count of 10,000, hemoglobin of 14, platelets of 183. Chemistries reveal a BUN of 30, creatinine of 2.3. Microbiology reveals the patient has wound cultures, MRSA, sensitive to tetracycline. ASSESSMENT AND PLAN: This is a 58-year-old man seen earlier this morning in room 571, bed 2 with a history of methicillin-resistant Staphylococcus aureus from the right leg and a history of hypertension, bronchitis, stage III kidney disease, IgG, type IV associated tubular interstitial nephritis, history of uveitis on left eye, and history of periorbital cellulitis and benign prostatic hypertrophy presenting with a left leg methicillin-resistant Staphylococcus aureus abscess and cellulitis resolving with leukocytosis, which is resolved, acute kidney injury on top of chronic kidney disease, may complete with p.o. doxycycline, status post incision and drainage. We will follow with you. Afshin De La Garza MD
== END 2018-07-10 10:46 | disposition home or self-care (01) | DRG 603 ==
LOC: ED 19:31 → ERH 21:39 → 5RNO 23:32 → 5RSO 07-07 14:37
PROVIDERS: ADMIT Internal Medicine Nephrology; ATTEND Internal Medicine Nephrology
PROC: 0H9LXZZ Drainage of Left Lower Leg Skin, External Approach (ICD-10-PCS; principal; 2018-07-09)
DX: L03.116 Cellulitis of left lower limb (principal); L03.213 Periorbital cellulitis; H20.9 Unspecified iridocyclitis; N12 Tubulo-interstitial nephritis, not specified as acute or chronic; N17.9 Acute kidney failure, unspecified; L02.416 Cutaneous abscess of left lower limb; L02.426 Furuncle of left lower limb; N18.3 Chronic kidney disease, stage 3 (moderate); I12.9 Hypertensive chronic kidney disease with stage 1 through stage 4 chronic kidney disease, or unspecified chronic kidney disease; N40.0 Benign prostatic hyperplasia without lower urinary tract symptoms; B95.62 Methicillin resistant Staphylococcus aureus infection as the cause of diseases classified elsewhere; J34.0 Abscess, furuncle and carbuncle of nose; G43.909 Migraine, unspecified, not intractable, without status migrainosus; F41.9 Anxiety disorder, unspecified; Z86.14 Personal history of Methicillin resistant Staphylococcus aureus infection; Z90.49 Acquired absence of other specified parts of digestive tract

== ENCOUNTER 2018-07-25 17:58 | Emergency (ER) | payer MEDICARE, OTHER ==
[2018-07-25 17:59] VITALS: BMI 27.4
--- NOTE | 2018-07-25 18:39 | ED PDOC ---
Arrival/HPI - General Chief Complaint: Lower Extremity Problem/Injury Time Seen by Provider: 07/25/18 18:21 Historian: Patient - History of Present Illness Narrative History of Present Illness (Text): 07/25/18 18:39 58yo male with pmhx of renal insufficiency, hypertension who present with complaint of left knee redness and pain. States he noticed the redness and pain started this afternoon. Notes that he was recently admitted here for right knee cellulitis. He denies fever, chills, trauma, any other complaint. 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 after having deviated septum sx, has had for last 2 yrs recurrent migranes and uvitis, c/o photophobia, blurred vision r eye - Renal Hx Renal Disorder: Yes Hx Dialysis: No Other/Comment: 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 - Endocrine/Metabolic Hx Endocrine Disorders: No - Hematological/Oncological Hx Blood Disorders: Yes Hx Cancer: No Hx Chemotherapy: Yes - Integumentary Other/Comment: multiple tatoos - Musculoskeletal/Rheumatological Hx Falls: No - Gastrointestinal Hx Gastrointestinal Disorders: No Other/Comment: colonoscopy - Genitourinary/Gynecological Hx Genitourinary Disorders: Yes Hx Prostate Problems: (pt denies prostate problems) - Psychiatric Hx Psychophysiologic Disorder: No Hx Substance Use: No Other/Comment: in last 5 years lost his his job and his house - Surgical History Hx Cholecystectomy: Yes (2016) - Anesthesia Hx Anesthesia: Yes Hx Anesthesia Reactions: No Hx Malignant Hyperthermia: No - Suicidal Assessment Feels Threatened In Home Enviroment: No Family/Social History - Physician Review Nursing Documentation Reviewed: Yes Family/Social History: Unknown Family HX Smoking Status: Never Smoked Hx Alcohol Use: No Frequency of alcohol use: Socially Hx Substance Use: No Hx Substance Use Treatment: No Allergies/Home Meds Allergies/Adverse Reactions: Allergies No Known Allergies Allergy (Verified 03/18/18 15:50) Home Medications: Home Meds Medication Instructions Recorded Confirmed Alprazolam [Xanax] 0.25 mg PO PRN PRN 06/01/18 07/25/18 amLODIPine [Norvasc] 5 mg PO DAILY 06/01/18 07/25/18 oxyCODONE/Acetaminophen [Percocet 1 tab PO PRN PRN 06/01/18 07/25/18 5/325 mg Tab] predniSONE [predniSONE Tab] 5 mg PO DAILY 06/01/18 07/25/18 Review of Systems - Physician Review All systems were reviewed & negative as marked: Yes - Review of Systems Constitutional: Normal Eyes: Normal ENT: Normal Respiratory: Normal Cardiovascular: Normal Gastrointestinal: Normal Genitourinary Male: Normal Musculoskeletal: Arthralgias (Left knee pain) Skin: Normal Neurological: Normal Endocrine: Normal Hemo/Lymphatic: Normal Psychiatric: Normal Physical Exam Vital Signs Reviewed: Yes Vital Signs Temp Pulse Resp BP Pulse Ox 07/25/18 20:35 98.7 F 83 18 172/98 H 96 07/25/18 19:38 93 H 180/105 H 07/25/18 19:00 98.9 F 97 H 18 183/108 H 99 07/25/18 18:16 98.7 F 99 H 18 209/118 H 98 Temperature: Afebrile Blood Pressure: Hypertensive Pulse: Regular Respiratory Rate: Normal Appearance: Positive for: Well-Appearing, Non-Toxic, Comfortable Pain Distress: None Mental Status: Positive for: Alert and Oriented X 3 - Systems Exam Head: Present: Atraumatic, Normocephalic Pupils: Present: PERRL Extroacular Muscles: Present: EOMI Conjunctiva: Present: Normal Mouth: Present: Moist Mucous Membranes Neck: Present: Normal Range of Motion Respiratory/Chest: Present: Clear to Auscultation, Good Air Exchange. No: Respiratory Distress, Accessory Muscle Use Cardiovascular: Present: Regular Rate and Rhythm, Normal S1, S2. No: Murmurs Abdomen: No: Tenderness, Distention, Peritoneal Signs Back: Present: Normal Inspection Upper Extremity: Present: Normal Inspection. No: Cyanosis, Edema Lower Extremity: Present: Normal ROM (With pain on flexion), Tenderness (Left knee), Temperature Abnormalties (Warm to touch to left knee), Neurovascularly Intact. No: Edema Neurological: Present: GCS=15, CN II-XII Intact, Speech Normal Skin: Present: Warm, Dry, Normal Color. No: Rashes Psychiatric: Present: Alert, Oriented x 3, Normal Insight, Normal Concentration Medical Decision Making ED Course and Treatment: 07/25/18 20:48 PT presented to ED for stated history. He was afebrile and in no distress in ED. His BP was elevated in ED and he alleged that he took his medication today. He was given Norvasc in ED and his BP improved in ED. Mild elevation of leukocyte was noted. Left knee xray - No air noted. Rocephin and Percocet was given in ED Case was DW Dr. Benton and he recommend Colchicine and Augmentin for pt. States he admitted pt last time for same complaint and all his test was negative. Wants pt to f/u with him in the office. Result and plan was DW the pt and he states that he have appointment with Dr. benton on Monday. He was ambulatory on DC. - Lab Interpretations Lab Results: 07/25/18 19:42 07/25/18 19:42 Lab Results 07/25/18 19:42: Sodium 142, Potassium 4.3, Chloride 107, Carbon Dioxide 26, Anion Gap 14, BUN 31 H, Creatinine 2.5 H, Est GFR ( Amer) 32, Est GFR ( Non-Af Amer) 27, Random Glucose 95, Calcium 9.1, Total Bilirubin 0.4, AST 23, ALT 20, Alkaline Phosphatase 69, Total Protein 7.3, Albumin 4.2, Globulin 3.1, Albumin/Globulin Ratio 1.3 07/25/18 19:42: WBC 12.4 H D, RBC 4.66, Hgb 13.4 L, Hct 39.8 L, MCV 85.4, MCH 28.8, MCHC 33.7, RDW 13.4, Plt Count 187, MPV 9.0, Gran % 81.7 H, Lymph % (Auto ) 12.2 L, [place] % (Auto) 4.9, Eos % (Auto) 1.0 L, Baso % (Auto) 0.2, Gran # 10.13 H, Lymph # (Auto) 1.5, [place] # (Auto) 0.6, Eos # (Auto) 0.1, Baso # (Auto) 0.02 - RAD Interpretation Radiology Orders: 07/25/18 18:33 KNEE LEFT 2 VIEWS (AP & LAT) [RAD] Stat - Medication Orders Current Medication Orders: Discontinued Medications Amlodipine Besylate (Norvasc) 5 mg PO STAT STA Stop: 07/25/18 19:09 Last Admin: 07/25/18 19:38 Dose: 5 mg [facility] Pulse and Blood Pressure Document 07/25/18 19:38 LA (Rec: 07/25/18 19:38 LA [id number]) Pulse Pulse Rate (60-90 beats/min) 93 Blood Pressure Blood Pressure (100/60-150/90 mm Hg) 180/105 Colchicine (Colocrys) 1.2 mg PO ONCE STA Stop: 07/25/18 20:41 Ceftriaxone Sodium (Rocephin 1 Gram Ivpb) 1 gm in 100 mls @ 200 mls/hr IVPB STAT STA PRN Reason: Protocol Stop: 07/25/18 20:37 Last Admin: 07/25/18 20:35 Dose: 200 mls/hr eMAR Start Stop Document 07/25/18 20:35 LA (Rec: 07/25/18 20:35 LA [id number]) Intravenous Solution Start Date 07/25/18 Start Time 20:35 End Date 07/25/18 End time 21:05 Total Infusion Time 30 Oxycodone/Acetaminophen (Percocet 5/325 Mg Tab) 1 tab PO STAT STA Stop: 07/25/18 18:41 Last Admin: 07/25/18 18:58 Dose: 1 tab [facility] Pain Assessment Document 07/25/18 18:58 LA (Rec: 07/25/18 18:58 LA [id number]) Pain Reassessment Is this a pain reassessment? No Sleep Is patient sleeping during reassessment? No Presence of Pain Presence of Pain Yes Pain Scale Used Pain Scale Used Numeric Location Left, Right or Bilateral Left Pain Location Body Site Leg Description Description Constant Intensity of Pain at present 7 Pain Behavior Guarding Re-Assess: BRIGIDA Pain Assessment Document 07/25/18 19:58 LA (Rec: 07/25/18 20:32 LA [id number]) Pain Reassessment Is this a pain reassessment? Yes Sleep Is patient sleeping during reassessment? No Presence of Pain Presence of Pain Yes Pain Scale Used Pain Scale Used Numeric Location Left, Right or Bilateral Left Pain Location Body Site Knee Description Description Intermittent Intensity of Pain at present 4 Pain Behavior Guarding Disposition/Present on Arrival - Present on Arrival Any Indicators Present on Arrival: No History of DVT/PE: No History of Uncontrolled Diabetes: No Urinary Catheter: No History of Decub. Ulcer: No History Surgical Site Infection Following: None - Disposition Have Diagnosis and Disposition been Completed?: Yes Diagnosis: Cellulitis Disposition: HOME/ ROUTINE Disposition Time: 20:45 Patient Plan: Discharge Patient Problems: Current Active Problems Problem Status Onset Cellulitis Acute Condition: STABLE Discharge Instructions (ExitCare): Cellulitis (Skin Infection), Adult (DC), Cellulitis (ED) Additional Instructions: Follow up with your doctor Return to ED for worsening symptoms Prescriptions: Amoxicillin/Potassium Clav [Augmentin 500 mg-125 mg] 1 tab PO BID #14 tab Colchicine 0.6 mg PO DAILY #7 cap traMADol [Ultram] 50 mg PO TID #7 tab Referrals: Jeovany Benton MD [Family Provider] - Follow up with primary Forms: [employer] (Bulgarian)
[2018-07-25] MEDS ORDERED: Oxycodone/Acetaminophen 5/325 mg Tab PO STA (18:40)
[2018-07-25 18:49] VITALS: RESP 18
[2018-07-25 19:48] LABS: BASO # 0.02 K/mm3 (0.0-2.0); BASO % 0.2 % (0.0-3.0); EOS # 0.1 (0.0-0.7); GRAN # 10.13 (1.4-6.5); GRAN % 81.7 % (50.0-68.0); HEMOGLOBIN 13.4 g/dL (14.0-18.0); LYMPH # 1.5 (1.2-3.4); LYMPH % 12.2 % (22.0-35.0); MEAN CELL VOLUME 85.4 fl (80.0-105.0); MEAN CORPUSCULAR HEMOGLOBIN 28.8 pg (25.0-35.0); MEAN CORPUSCULAR HGB CONC 33.7 g/dl (31.0-37.0); MONO # 0.6 (0.1-0.6); MONO % 4.9 % (1.0-6.0); RBC 4.66 10^6/uL (3.5-6.1); RED CELL DISTRIBUTION WIDTH 13.4 % (11.5-14.5); WHITE BLOOD COUNT 12.4 10^3/ul (4.5-11.0)
[2018-07-25] MEDS ORDERED: cefTRIAXone 1 gm 1 GM/100 ML BAG IVPB STA (20:08)
[2018-07-25 20:24] LABS: ALB/GLOB RATIO 1.3 (1.1-1.8); ALBUMIN 4.2 g/dL (3.0-4.8); CALCIUM 9.1 mg/dL (8.4-10.5)
[2018-07-25 21:00] VITALS: BP 166/98; PULSE 75; TEMP 98.6; O2SAT 98
--- NOTE | 2018-07-26 09:27 | RAD ---
Date of service: 07/25/2018 PROCEDURE: Left Knee Radiographs. HISTORY: Pain. COMPARISON: None. FINDINGS: BONES: No acute fracture or destructive bony lesion identified. JOINTS: Normal. No osteoarthritis. JOINT EFFUSION: None. OTHER FINDINGS: None. IMPRESSION: Unremarkable radiographs of the left knee.
== END 2018-07-25 21:02 | disposition home or self-care (01) ==
LOC: ED 17:58
DX: L03.115 Cellulitis of right lower limb (principal); I10 Essential (primary) hypertension
CPT/HCPCS: 73560; 80053; 85025; 87040; 96365; 99284; J0696

== ENCOUNTER 2018-09-07 08:20 | Emergency (ER) | payer MEDICARE, OTHER ==
[2018-09-07 08:37] VITALS: BMI 27.7
[2018-09-07 09:00] VITALS: O2SAT 98
[2018-09-07] MEDS ORDERED: levoFLOXacin 750 MG TAB PO STA (09:23)
--- NOTE | 2018-09-07 09:28 | ED PDOC ---
Arrival/HPI - General Chief Complaint: Medical Clearance Time Seen by Provider: 09/07/18 08:31 Historian: Patient - History of Present Illness Narrative History of Present Illness (Text): 09/07/18 09:30 A 58 year old male, whose past medical history includes HTN, uveitis, IgG4 nephropathy, presents to the emergency department for further evaluation of pain and irritation to right eye and puncture wound to his right heel. Patient states that he has been on steroids 5x daily and has been using Prednisolone Acetate Ophthalmic Suspension LONGTERM twice a day for his uveitis. Patient notes that his right eye feels irritated, but denies any pressure. He notes that he stepped on a nail, puncturing his right heel. The patient notes that his last tetanus shot is up to date (given 3 weeks ago). The patient denies fevers, chills, headache, dizziness, sore throat, cough, chest pain, shortness of breath, dyspnea on exertion, abdominal pain, nausea, vomiting, diarrhea, neck/back pain, urinary/bowel changes or any other complaint. PMD: Dr. Garrido/ Dr. Benton Opthalmologist: Dr. Glover Time/Duration: Other (Today and few days ago) Symptom Course: Unchanged Activities at Onset: Rest, Light Context: Home 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 after having deviated septum sx, has had for last 2 yrs recurrent migranes and uvitis, c/o photophobia, blurred vision r eye - Renal Hx Renal Disorder: Yes Hx Dialysis: No Other/Comment: 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 - Endocrine/Metabolic Hx Endocrine Disorders: No - Hematological/Oncological Hx Blood Disorders: Yes Hx Cancer: No Hx Chemotherapy: Yes - Integumentary Other/Comment: multiple tatoos - Musculoskeletal/Rheumatological Hx Falls: No - Gastrointestinal Hx Gastrointestinal Disorders: No Other/Comment: colonoscopy - Genitourinary/Gynecological Hx Genitourinary Disorders: Yes Hx Prostate Problems: (pt denies prostate problems) - Psychiatric Hx Psychophysiologic Disorder: No Hx Substance Use: No Other/Comment: in last 5 years lost his his job and his house - Surgical History Hx Cholecystectomy: Yes (2015) - Anesthesia Hx Anesthesia: Yes Hx Anesthesia Reactions: No Hx Malignant Hyperthermia: No - Suicidal Assessment Feels Threatened In Home Enviroment: No Family/Social History - Physician Review Nursing Documentation Reviewed: Yes Family/Social History: No Known Family HX Smoking Status: Never Smoked Hx Alcohol Use: No Hx Substance Use: No Hx Substance Use Treatment: No Allergies/Home Meds Allergies/Adverse Reactions: Allergies No Known Allergies Allergy (Verified 09/07/18 08:30) Home Medications: Home Meds Medication Instructions Recorded Confirmed RX: Alprazolam [Xanax] 0.25 mg PO PRN PRN 06/01/18 07/25/18 RX: amLODIPine [Norvasc] 5 mg PO DAILY 06/01/18 07/25/18 RX: oxyCODONE/Acetaminophen 1 tab PO PRN PRN 06/01/18 07/25/18 [Percocet 5/325 mg Tab] RX: predniSONE [predniSONE Tab] 5 mg PO DAILY 06/01/18 07/25/18 Review of Systems - Physician Review All systems were reviewed & negative as marked: Yes - Review of Systems Eyes: Eye Pain Skin: Other (Puncture to right heel) Physical Exam Vital Signs Reviewed: Yes Vital Signs Temp Pulse Resp BP Pulse Ox 09/07/18 09:21 97.6 F 09/07/18 08:59 60 18 187/113 H 98 Temperature: Afebrile Blood Pressure: Hypertensive Pulse: Regular Respiratory Rate: Normal Appearance: Positive for: Well-Appearing, Non-Toxic, Comfortable Pain Distress: None Mental Status: Positive for: Alert and Oriented X 3 - Systems Exam Head: Present: Other (Right eye. red, sensitive to light. Eye exam: 20/70 right eye visual acuity. 20/40 left eye visual acuity. Patient does no use glasses or contact. No fluorescein uptake with fluorescein exam. No foreign body appreciated. ) Lower Extremity: Present: Other (Right heel puncture wound. Tender. No redness, swelling, pus drainage, ) Medical Decision Making ED Course and Treatment: 09/07/18 09:38 Impression: A 58 year old male presents to the emergency department for further evaluation of irritation to right eye and puncture wound to right heel. Differential Diagnosis included but are not limited to: Acute/chronic uveitis. Right puncture wound to right heel. Plan: -- Right Foot X- ray -- Levaquin -- Reassess and disposition Prior Visits: Notes and results from previous visits were reviewed. Progress Notes: 09/07/18 09:38: Past notes reviewed. Patient prescribed 10 mg of Prednisone T ablets daily. 09/07/18 09:43: Case discussed with Dr. Mcgrath recommended Pred Forte 1% every 2 hours, Cyclogyl once daily, and Lotemax ointment at bedtime. Follow up on Monday with the office. On reevaluation the patient feels better and is in no acute distress. Xray of the foot shows no foreign body. Official reading mentioned a possible fracture to 5th toe. There is no tenderness to the area so clinically not likely a correlating fracture. There is FROM and sensation intact. There is only mild tenderness to the heel of the right foot where there is a puncture wound. Patient was given Levaquin prophlactically due to his chronic use of steroids. Wound was irrigated and cleaned. I have discussed the results and plan with the patient, who expresses understanding. Patient given the opportunity to ask question, all questions were answered and there is agreement with the plan to discharge the patient home. Patient is stable for discharge. Patient was instructed to follow up with Opthalomologist Dr. Mcgrath on Monday or return if symptoms persist/worsen or new concerning symptoms arise. - RAD Interpretation Radiology Orders: 09/07/18 08:45 FOOT RIGHT 3 VIEWS ROUTINE [RAD] Stat - Medication Orders Current Medication Orders: Discontinued Medications Levofloxacin (Levaquin) 750 mg PO STAT STA; Protocol Stop: 09/07/18 09:24 - Scribe Statement The provider has reviewed the documentation as recorded by the Rosalva Meade Provider Scribe Attestation: All medical record entries made by the Scribe were at my direction and personally dictated by me. I have reviewed the chart and agree that the record accurately reflects my personal performance of the history, physical exam, medical decision making, and the department course for this patient. I have also personally directed, reviewed, and agree with the discharge instructions and disposition. Disposition/Present on Arrival - Present on Arrival Any Indicators Present on Arrival: No History of DVT/PE: No History of Uncontrolled Diabetes: No Urinary Catheter: No History of Decub. Ulcer: No History Surgical Site Infection Following: None - Disposition Have Diagnosis and Disposition been Completed?: Yes Diagnosis: Acute anterior uveitis of right eye, Puncture wound of foot Disposition: HOME/ ROUTINE Disposition Time: 10:00 Patient Plan: Discharge Condition: IMPROVED Discharge Instructions (ExitCare): Uveitis, Toe Injury (DC) Additional Instructions: GONSALO REYES, thank you for letting us take care of you today. Your provider was Sebastien Escobedo DO and you were treated for right eye uveitus and foot puncture wound, The emergency medical care you received today was directed at your acute symptoms. If you were prescribed any medication, please fill it and take as directed. It may take several days for your symptoms to resolve. Return to the Emergency Department if your symptoms worsen, do not improve, or if you have any other problems. Make sure to follow up with Dr. Glover or Dr. Mcgrath on Monday. Take medications as prescribed. Please contact your doctor or call one of the physicians/clinics you have been referred to that are listed on the Patient Visit Information form that is included in your discharge packet. Bring any paperwork you were given at discharge with you along with any medications you are taking to your follow up visit. Our treatment cannot replace ongoing medical care by a primary care provider outside of the emergency department. Thank you for allowing the [facility] team to be part of your care today. If you had an X-Ray or CT scan: A Radiologist will review the ED reading if any change in treatment is needed we will contact you. If you had a blood, urine, or wound culture: It will take several days for the results, if any change in treatment is needed we will contact you. If you had an STI test: It will take 48 hours for the results. Please call after 1 week if you have not heard back. Prescriptions: Cyclopentolate 1% [Cyclogyl 1% Opht] 1 drop OD DAILY #1 bottle Levofloxacin [Levaquin] 750 mg PO DAILY #4 tablet RX: Loteprednol Etabonate [Alrex] 5 ml OD QPM #1 PrednisoLONE 1% [Pred Forte 1% Opht Susp] 1 drop OD Q2 #1 bottle Referrals: Jeovany Benton MD [Primary Care Provider] - Follow up with primary Karsten Mcgrath MD [Staff Provider] - Follow up with primary Forms: [employer] (Turkish), WORK NOTE
[2018-09-07 10:00] VITALS: PULSE 69; RESP 19; TEMP 97.9
--- NOTE | 2018-09-07 10:04 | RAD ---
PROCEDURE: Left Foot Radiographs. HISTORY: pain r/o foreign body COMPARISON: None available. FINDINGS: BONES: Transverse lucency at the proximal 5th metatarsal suspicious for nondisplaced acute fracture. JOINTS: No dislocation. SOFT TISSUES: No evidence of radiopaque foreign body. OTHER FINDINGS: None. IMPRESSION: Transverse lucency at the proximal 5th metatarsal suspicious for nondisplaced acute fracture. This is seen on a single view. Correlate with physical exam in order to assess for point tenderness. Study marked for PA review and findings discussed with FREDDY Wood on 09/07/18 at 9:57 a.m.
[2018-09-07 12:03] VITALS: BP 154/88
== END 2018-09-07 10:00 | disposition home or self-care (01) ==
LOC: ED 08:20
DX: H20.00 Unspecified acute and subacute iridocyclitis (principal); S91.331A Puncture wound without foreign body, right foot, initial encounter; W45.0XXA Nail entering through skin, initial encounter; Y92.9 Unspecified place or not applicable

== ENCOUNTER 2018-10-11 11:57 | Emergency (ER) | payer MEDICARE, OTHER ==
[2018-10-11 12:22] VITALS: BMI 27.7
[2018-10-11 12:27] VITALS: RESP 18; TEMP 97.7; O2SAT 97
--- NOTE | 2018-10-11 12:36 | ED PDOC ---
Arrival/HPI <Carlos Garces - Last Filed: 10/11/18 16:44> - General Historian: Patient - History of Present Illness Narrative History of Present Illness (Text): 10/11/18 12:34 Patient is a 58 year old male with past medical history of hypertension, uveitis, Igg4 nephropathy who presents to the emergency department for laceration to right lower leg. Patient states that when he was home last night, he tripped and fell into a glass table. He states that the glass broke and cut his in the ba. The incident occurred at approximately 9:30pm. He applied A+D ointment and wrapped up his leg with an will bandage and duck tape after the incident. Currently he reports having pain. He denies any headaches, dizziness, cp, palpitations, sob, abdominal pain, urinary symptoms, changes in bowel habits. He reports taking his BP medications this morning. Last recieved tetanus vaccine 2 weeks ago PMD: Dr Forbes Allergies: NKDA Medical History: hypertension, uveitis, Ig4 nephropathy Surgical History: Hernia repair, Kidney surgery, deviated septum repair, cholecystectomy Social History: Denies tobacco, drug use; drinks 10 beers/week Family History: Mother - ; Father - Time/Duration: 24 hours Symptom Onset: Sudden Severity Level: 7, Moderate Context: Walking <Yolis Loera - Last Filed: 10/11/18 17:41> - General Chief Complaint: Abnormal Skin Integrity Time Seen by Provider: 10/11/18 12:30 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 after having deviated septum sx, has had for last 2 yrs recurrent migranes and uvitis, c/o photophobia, blurred vision r eye - Renal Hx Renal Disorder: Yes Hx Dialysis: No Other/Comment: 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 - Endocrine/Metabolic Hx Endocrine Disorders: No - Hematological/Oncological Hx Blood Disorders: Yes Hx Cancer: No Hx Chemotherapy: Yes - Integumentary Other/Comment: multiple tatoos - Musculoskeletal/Rheumatological Hx Falls: No - Gastrointestinal Hx Gastrointestinal Disorders: No Other/Comment: colonoscopy - Genitourinary/Gynecological Hx Genitourinary Disorders: Yes Hx Prostate Problems: (pt denies prostate problems) - Psychiatric Hx Psychophysiologic Disorder: No Hx Substance Use: No - Surgical History Hx Cholecystectomy: Yes (2015) - Anesthesia Hx Anesthesia: Yes Hx Anesthesia Reactions: No Hx Malignant Hyperthermia: No - Suicidal Assessment Feels Threatened In Home Enviroment: No <Yolis Loera - Last Filed: 10/11/18 17:41> Family/Social History - Physician Review Nursing Documentation Reviewed: Yes Family/Social History: Unknown Family HX Smoking Status: Never Smoked Hx Alcohol Use: Yes (10 beers/week) Hx Substance Use: No Hx Substance Use Treatment: No <oYlis Loera - Last Filed: 10/11/18 17:41> Allergies/Home Meds <Carlos Garces - Last Filed: 10/11/18 16:44> <Yolis Loera - Last Filed: 10/11/18 17:41> Allergies/Adverse Reactions: Allergies No Known Allergies Allergy (Verified 09/07/18 08:30) Home Medications: Home Meds Medication Instructions Recorded Confirmed Alprazolam [Xanax] 0.25 mg PO PRN PRN 06/01/18 07/25/18 amLODIPine [Norvasc] 5 mg PO DAILY 06/01/18 07/25/18 oxyCODONE/Acetaminophen [Percocet 1 tab PO PRN PRN 06/01/18 07/25/18 5/325 mg Tab] predniSONE [predniSONE Tab] 5 mg PO DAILY 06/01/18 07/25/18 Review of Systems - Physician Review All systems were reviewed & negative as marked: Yes - Review of Systems Constitutional: Normal. absent: Fatigue, Fevers Eyes: Normal ENT: Normal Respiratory: Normal. absent: SOB, Cough Cardiovascular: Normal. absent: Chest Pain Gastrointestinal: Normal. absent: Abdominal Pain, Diarrhea, Nausea, Vomiting Genitourinary Male: Normal. absent: Dysuria Musculoskeletal: Other (right leg pain) Neurological: Normal. absent: Headache, Dizziness <Yolis Loera - Last Filed: 10/11/18 17:41> Physical Exam Vital Signs Temp Pulse Resp BP Pulse Ox 10/11/18 14:36 82 18 164/97 H 97 10/11/18 13:41 84 181/111 H 10/11/18 11:59 97.7 F 90 18 188/105 H 97 <Emanuel Garcesan - Last Filed: 10/11/18 16:44> Vital Signs Reviewed: Yes Vital Signs Temp Pulse Resp BP Pulse Ox 10/11/18 11:59 97.7 F 90 18 188/105 H 97 Temperature: Afebrile Blood Pressure: Hypertensive Pulse: Regular Respiratory Rate: Normal Appearance: Positive for: Non-Toxic Pain Distress: Mild Mental Status: Positive for: Alert and Oriented X 3 - Systems Exam Head: Present: Atraumatic, Normocephalic, Ecchymosis (healing ecchymosis around right periorbital region) Pupils: Present: PERRL Extroacular Muscles: Present: EOMI Mouth: Present: Moist Mucous Membranes Neck: Present: Normal Range of Motion Respiratory/Chest: Present: Clear to Auscultation, Good Air Exchange Cardiovascular: Present: Regular Rate and Rhythm, Normal S1, S2 Abdomen: No: Tenderness, Distention Lower Extremity: Present: Other (Right lecm wide laceration to the right ba, not actively bleed, surrounding skin erythematous, palpable pulses) Skin: Present: Warm, Dry, Laceration (right ba) Psychiatric: Present: Alert, Oriented x 3 <Yolis Loera - Last Filed: 10/11/18 17:41> Medical Decision Making ED Course and Treatment: 10/11/18 12:40 58 year old male, presents to the Emergency department for evaluation of laceration to the right lower leg. In agreement with resident note which contains more details about the patient. Patient seen and evaluated with resident. Came up with plan and treatment together. - RAD Interpretation Radiology Orders: 10/11/18 13:31 TIBIA FIBULA RIGHT [RAD] Stat - Medication Orders Current Medication Orders: Discontinued Medications Amlodipine Besylate (Norvasc) 5 mg PO STAT STA Stop: 10/11/18 13:34 Last Admin: 10/11/18 13:41 Dose: 5 mg MAR Pulse and Blood Pressure Document 10/11/18 13:41 [place] (Rec: 10/11/18 13:42 [place] [facility] [place] Pulse Pulse Rate (60-90 beats/min) 84 Blood Pressure Blood Pressure (100/60-150/90 mm Hg) 181/111 Cefazolin Sodium/Dextrose (Ancef Iv 2 Gm Duplex) 2 gm in 50 mls @ 50 mls/hr IVPB STAT FINESSE Cefazolin Sodium/Dextrose (Ancef Iv 2 Gm Duplex) 2 gm in 50 mls @ 50 mls/hr IVPB STAT ONE Stop: 10/11/18 14:30 Last Admin: 10/11/18 14:52 Dose: 50 mls/hr eMAR Start Stop Document 10/11/18 14:52 [place] (Rec: 10/11/18 14:52 [place] [facility] [place] [facility] [place] Intravenous Solution Start Date 10/11/18 Start Time 14:52 End Date 10/11/18 End time 15:52 Total Infusion Time 60 Lidocaine HCl (Lidocaine 1% (20ml)) 10 ml IJ STAT STA Stop: 10/11/18 14:39 Last Admin: 10/11/18 15:39 Dose: Not Given Non-Admin Reason: Given by ER Resident Tramadol HCl (Ultram) 50 mg PO STAT STA Stop: 10/11/18 13:38 Last Admin: 10/11/18 15:00 Dose: Not Given Non-Admin Reason: hold as per ER resident <Carlos Garces - Last Filed: 10/11/18 16:44> ED Course and Treatment: 10/11/18 12:36 Patient seen and examined at bedside. Patient with 3cm skin laceration to his right ba, no active bleeding. Wound cleaned with normal saline. We will order tibula/fibula xrays, Norvasc 5mg PO x 1, Ancef 2gm IVPB. 10/11/18 14:45 Patient returned from xray. BP improved 164/97. We will repair laceration at the bedside. 10/11/18 15:41 Laceration repaired at the bedside. Patient tolerated the procedure well. Bacitracin applied to the wound. Patient instructed to follow up with Dr Forbes in 7-10 days for suture removal. 10/11/18 17:41 - RAD Interpretation Narrative RAD Interpretations (Text): 10/11/18 15:45 Tibula/Fibula xray: no acute fracture Quality Control Director: Radiologist - Procedure PROCEDURE NOTE (Text): 10/11/18 15:42 Patient with 3cm laceration to the right ba. Wound was cleaned with NS and betadyl. 3cc of lidocaine was injected into the wound. Wound was loosely reapproximated with 4 interrupted 4-0 prolene sutures. Hemostasis was achieved. Bacitracin applied. Wound dressed with 4 x 4. <Yolis Loera - Last Filed: 10/11/18 17:41> - PA / RECRUITING CONSULTANT / Resident Statement / has reviewed & agrees with the documentation as recorded. MD/DO has examined the patient and agrees with the treatment plan. - Scribe Statement The provider has reviewed the documentation as recorded by the Scribe Olinda Owens. All medical record entries made by the Scribe were at my direction and personally dictated by me. I have reviewed the chart and agree that the record accurately reflects my personal performance of the history, physical exam, medical decision making, and the department course for this patient. I have also personally directed, reviewed, and agree with the discharge instructions and disposition. <Carlos Garces - Last Filed: 10/11/18 16:44> Disposition/Present on Arrival <Carlos Garces - Last Filed: 10/11/18 16:44> - Present on Arrival Any Indicators Present on Arrival: No History of DVT/PE: No History of Uncontrolled Diabetes: No Urinary Catheter: No History of Decub. Ulcer: No History Surgical Site Infection Following: None - Disposition Have Diagnosis and Disposition been Completed?: Yes Disposition Time: 15:35 Patient Plan: Discharge <Yolis Loera - Last Filed: 10/11/18 17:41> - Disposition Diagnosis: Laceration Disposition: HOME/ ROUTINE Patient Problems: Current Active Problems Problem Status Onset Laceration Acute Condition: GOOD Discharge Instructions (ExitCare): Laceration Repair Additional Instructions: - Please take antibiotics as prescribed - Please follow up with PMD in 7-10 days for suture removal - If you develop fevers, chills, increasing pain, redness please return to the emergency dept Prescriptions: Cephalexin [Keflex] 500 mg PO BID #14 capsule Referrals: Farhana Forbes [Medical Doctor] - Follow up with primary Forms: [employer] (Mauritanian)
[2018-10-11] MEDS ORDERED: ceFAZolin IV 2 gm in 50 mL D5W IVPB SCH (13:31)
[2018-10-11] MEDS ORDERED: ceFAZolin IV 2 gm in 50 mL D5W IVPB ONE (13:45)
[2018-10-11 14:37] VITALS: BP 164/97; PULSE 82
[2018-10-11] MEDS ORDERED: Lidocaine 1% Inj (20ml) IJ STA (14:38)
--- NOTE | 2018-10-11 15:07 | RAD ---
Date of service: 10/11/2018 PROCEDURE: Radiographs of the right tibia and fibula. HISTORY: s/p fall COMPARISON: None available TECHNIQUE: Frontal and lateral views obtained. FINDINGS: BONES: No acute fracture or destructive bony lesion identified. JOINT SPACES: Unremarkable. OTHER FINDINGS: None. IMPRESSION: Unremarkable radiographs of the right tibia and fibula.
== END 2018-10-11 17:30 | disposition home or self-care (01) ==
LOC: ED 11:57
DX: S81.811A Laceration without foreign body, right lower leg, initial encounter (principal); W25.XXXA Contact with sharp glass, initial encounter; I10 Essential (primary) hypertension
CPT/HCPCS: 12002; 73590; 96365; 99284; J0690

== ENCOUNTER 2018-10-19 03:47 | Emergency (ER) | payer MEDICARE, OTHER ==
[2018-10-19 03:47] VITALS: BMI 27.7
[2018-10-19 04:11] VITALS: RESP 18; TEMP 97.7
--- NOTE | 2018-10-19 04:28 | ED PDOC ---
Arrival/HPI - General Chief Complaint: Suture/Staple Removal Time Seen by Provider: 10/19/18 04:00 Historian: Patient - History of Present Illness Narrative History of Present Illness (Text): 10/19/18 04:24 58 year old male, whose past medical history includes hypertension, uveitis, and Igg4 nephropathy, presents to the emergency department for laceration wound check. Patient was seen in the emergency department one week prior for laceration to right lower leg and had wound sutured. Patient reports wound is healing and has improved. Patient denies any purulent discharge. Patient denies any fevers, chills, headache, dizziness, nausea, vomiting, diarrhea, urinary/bowel changes, or any other complaint. 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 after having deviated septum sx, has had for last 2 yrs recurrent migranes and uvitis, c/o photophobia, blurred vision r eye - Renal Hx Renal Disorder: Yes Hx Dialysis: No Other/Comment: 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 - Endocrine/Metabolic Hx Endocrine Disorders: No - Hematological/Oncological Hx Blood Disorders: Yes Hx Cancer: No Hx Chemotherapy: Yes - Integumentary Hx Dermatological Disorder: Yes Other/Comment: multiple tatoos - Musculoskeletal/Rheumatological Hx Falls: No - Gastrointestinal Hx Gastrointestinal Disorders: No Other/Comment: colonoscopy - Genitourinary/Gynecological Hx Genitourinary Disorders: Yes Hx Prostate Problems: (pt denies prostate problems) - Psychiatric Hx Psychophysiologic Disorder: No Hx Substance Use: No - Surgical History Hx Cholecystectomy: Yes (2015) - Anesthesia Hx Anesthesia: Yes Hx Anesthesia Reactions: No Hx Malignant Hyperthermia: No - Suicidal Assessment Feels Threatened In Home Enviroment: No Family/Social History - Physician Review Nursing Documentation Reviewed: Yes Family/Social History: No Known Family HX Smoking Status: Never Smoked Hx Alcohol Use: Yes (10 beers/week) Hx Substance Use: No Hx Substance Use Treatment: No Allergies/Home Meds Allergies/Adverse Reactions: Allergies No Known Allergies Allergy (Verified 09/07/18 08:30) Home Medications: Home Meds Medication Instructions Recorded Confirmed RX: Alprazolam [Xanax] 0.25 mg PO PRN PRN 06/01/18 10/19/18 RX: amLODIPine [Norvasc] 5 mg PO DAILY 06/01/18 10/19/18 RX: predniSONE [predniSONE Tab] 5 mg PO DAILY 06/01/18 10/19/18 Review of Systems - Physician Review All systems were reviewed & negative as marked: Yes - Review of Systems Constitutional: absent: Fevers, Night Sweats Gastrointestinal: absent: Diarrhea, Nausea, Vomiting Genitourinary Male: absent: Urinary Output Changes Skin: Laceration (wound check). absent: Pruritis Neurological: absent: Headache, Dizziness Physical Exam Vital Signs Reviewed: Yes Vital Signs Temp Pulse Resp BP Pulse Ox 10/19/18 04:03 97.7 F 80 18 149/68 96 Temperature: Afebrile Blood Pressure: Normal Pulse: Regular Respiratory Rate: Normal Appearance: Positive for: Well-Appearing, Non-Toxic, Comfortable Pain Distress: None Mental Status: Positive for: Alert and Oriented X 3 - Systems Exam Head: Present: Atraumatic, Normocephalic Pupils: Present: PERRL Extroacular Muscles: Present: EOMI Conjunctiva: Present: Normal Mouth: Present: Moist Mucous Membranes Neck: Present: Normal Range of Motion Respiratory/Chest: Present: Clear to Auscultation, Good Air Exchange. No: Respiratory Distress, Accessory Muscle Use Cardiovascular: Present: Regular Rate and Rhythm, Normal S1, S2. No: Murmurs Abdomen: No: Tenderness, Distention, Peritoneal Signs Back: Present: Normal Inspection Upper Extremity: Present: Normal Inspection. No: Cyanosis, Edema Lower Extremity: Present: Normal Inspection. No: Edema Neurological: Present: GCS=15, CN II-XII Intact, Speech Normal Skin: Present: Warm, Dry, Normal Color. No: Rashes Psychiatric: Present: Alert, Oriented x 3, Normal Insight, Normal Concentration Medical Decision Making ED Course and Treatment: 10/19/18 04:29 Impression: 58 year old male presents for wound check. Plan: -- Suture removal -- Reassess and disposition Prior Visits: Notes and results from previous visits were reviewed Progress Notes: 10/19/18 05:27 wound still not well approximated. request return in 48 hours for recheck or pmd f/u strict return precatuions for signs of infecton. - Scribe Statement The provider has reviewed the documentation as recorded by the Scribe Benny Saleh Provider Scribe Attestation: All medical record entries made by the Scribe were at my direction and pers onally dictated by me. I have reviewed the chart and agree that the record accurately reflects my personal performance of the history, physical exam, medical decision making, and the department course for this patient. I have also personally directed, reviewed, and agree with the discharge instructions and disposition. Disposition/Present on Arrival - Present on Arrival Any Indicators Present on Arrival: No History of DVT/PE: No History of Uncontrolled Diabetes: No Urinary Catheter: No History of Decub. Ulcer: No History Surgical Site Infection Following: None - Disposition Have Diagnosis and Disposition been Completed?: Yes Diagnosis: Encounter for re-check of laceration wound Disposition: HOME/ ROUTINE Disposition Time: 04:00 Condition: STABLE Discharge Instructions (ExitCare): Wound Care (DC) Additional Instructions: follow up with your doctor in next 48 hours. return to any er with worsening symptoms or concerns. Forms: [place] ([place]ic)
[2018-10-19 04:29] VITALS: BP 146/64; PULSE 78; O2SAT 97
== END 2018-10-19 04:30 | disposition home or self-care (01) ==
LOC: ED 03:47
DX: S81.811D Laceration without foreign body, right lower leg, subsequent encounter (principal); W25.XXXD Contact with sharp glass, subsequent encounter

== ENCOUNTER 2018-10-23 13:36 | Emergency (ER) | payer MEDICARE, OTHER ==
[2018-10-23 13:37] VITALS: BMI 27.7
--- NOTE | 2018-10-23 14:24 | ED PDOC ---
Arrival/HPI - General Historian: Patient - History of Present Illness Narrative History of Present Illness (Text): 10/23/18 14:38 58 y/o male, here for the 4 sutures removal of the rt. anterior ba s/p sutured about 12 days ago. Pt. stated that it didn't heal well due to this CKD, no night sweat, no palpitation, no numbness or tingling, no rash, no change in vision, no limping, no other medical or psychological complaints. 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 after having deviated septum sx, has had for last 2 yrs recurrent migranes and uvitis, c/o photophobia, blurred vision r eye - Renal Hx Renal Disorder: Yes Hx Dialysis: No Other/Comment: 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 - Endocrine/Metabolic Hx Endocrine Disorders: No - Hematological/Oncological Hx Blood Disorders: Yes Hx Cancer: No Hx Chemotherapy: Yes - Integumentary Hx Dermatological Disorder: Yes Other/Comment: multiple tatoos - Musculoskeletal/Rheumatological Hx Falls: No - Gastrointestinal Hx Gastrointestinal Disorders: No Other/Comment: colonoscopy - Genitourinary/Gynecological Hx Genitourinary Disorders: Yes Hx Prostate Problems: (pt denies prostate problems) - Psychiatric Hx Psychophysiologic Disorder: No Hx Substance Use: No - Surgical History Hx Cholecystectomy: Yes (2016) - Anesthesia Hx Anesthesia: Yes Hx Anesthesia Reactions: No Hx Malignant Hyperthermia: No - Suicidal Assessment Feels Threatened In Home Enviroment: No Family/Social History - Physician Review Nursing Documentation Reviewed: Yes Family/Social History: Unknown Family HX Smoking Status: Never Smoked Hx Alcohol Use: Yes (10 beers/week) Hx Substance Use: No Hx Substance Use Treatment: No Allergies/Home Meds Allergies/Adverse Reactions: Allergies No Known Allergies Allergy (Verified 09/07/18 08:30) Home Medications: Home Meds Medication Instructions Recorded Confirmed Alprazolam [Xanax] 0.25 mg PO PRN PRN 06/01/18 10/19/18 amLODIPine [Norvasc] 5 mg PO DAILY 06/01/18 10/19/18 predniSONE [predniSONE Tab] 5 mg PO DAILY 06/01/18 10/19/18 Review of Systems - Review of Systems Constitutional: absent: Fatigue, Fevers Eyes: absent: Vision Changes ENT: absent: Hearing Changes Respiratory: absent: SOB, Cough Cardiovascular: absent: Chest Pain Gastrointestinal: absent: Abdominal Pain, Nausea, Vomiting Skin: Other (+sutured wound). absent: Rash, Pruritis, Skin Lesions, Laceration, Abscess, Ulcer, Cellulitis Neurological: absent: Headache, Dizziness Physical Exam Vital Signs Reviewed: Yes Temperature: Afebrile Blood Pressure: Hypertensive Pulse: Regular Respiratory Rate: Normal Appearance: Positive for: Well-Appearing, Non-Toxic, Comfortable Pain Distress: None Mental Status: Positive for: Alert and Oriented X 3 - Systems Exam Head: Present: Atraumatic, Normocephalic Pupils: Present: PERRL Extroacular Muscles: Present: EOMI Conjunctiva: Present: Normal Mouth: Present: Moist Mucous Membranes Neck: Present: Normal Range of Motion Respiratory/Chest: Present: Clear to Auscultation, Good Air Exchange. No: Respiratory Distress, Accessory Muscle Use Cardiovascular: Present: Regular Rate and Rhythm, Normal S1, S2. No: Murmurs Abdomen: No: Tenderness, Distention, Peritoneal Signs Back: Present: Normal Inspection Upper Extremity: Present: Normal Inspection. No: Cyanosis, Edema Lower Extremity: Present: Normal Inspection, Other (Rt. anterior ba noted to have 4 prolene sutures with open gapping wound but healing, no regional lymphenapathy, FROM without limitation, sensation intact, motor 5/5, +DPPT Pulse, capillary refill< 2 seconds, neurovascular intact. ). No: Edema Neurological: Present: GCS=15, CN II-XII Intact, Speech Normal Skin: Present: Warm, Dry, Normal Color. No: Rashes Psychiatric: Present: Alert, Oriented x 3, Normal Insight, Normal Concentration Medical Decision Making ED Course and Treatment: 10/23/18 14:42 -4 sutures removed with success, no other sutures noted, bacitracin and gazue dressing, will give short course of clindamycin while waiting for the wound to be completely healed. -Discharge home with clindamycin, follow up with your own pmd for wound check, return to the ER for any new or worsening signs or symptoms. - PA / MATRIX BATH ATTENDANT / Resident Statement MD/DO has reviewed & agrees with the documentation as recorded. Disposition/Present on Arrival - Present on Arrival Any Indicators Present on Arrival: No History of DVT/PE: No History of Uncontrolled Diabetes: No Urinary Catheter: No History of Decub. Ulcer: No History Surgical Site Infection Following: None - Disposition Have Diagnosis and Disposition been Completed?: Yes Diagnosis: Visit for wound check, Visit for suture removal Disposition: HOME/ ROUTINE Disposition Time: 14:43 Patient Plan: Discharge Condition: GOOD Additional Instructions: -Discharge home with clindamycin, follow up with your own pmd for wound check, return to the ER for any new or worsening signs or symptoms. Prescriptions: Clindamycin [Cleocin] 300 mg PO TID #21 cap Referrals: Leobardo Mcmahon MD [Staff Provider] - Follow up with primary Forms: WORK NOTE
[2018-10-23 14:35] VITALS: BP 157/78; PULSE 83; RESP 18; TEMP 97.3; O2SAT 99
== END 2018-10-23 15:00 | disposition home or self-care (01) ==
LOC: ED 13:36
DX: Z48.02 Encounter for removal of sutures (principal)

== ENCOUNTER 2018-12-25 03:50 | Emergency (ER) | payer MEDICARE ==
[2018-12-25 04:11] VITALS: RESP 18; TEMP 97.7; BMI 27.4
--- NOTE | 2018-12-25 04:30 | ED PDOC ---
Arrival/HPI - General Chief Complaint: Eye Problem Historian: Patient - History of Present Illness Narrative History of Present Illness (Text): 12/25/18 04:26 58 year old male, whose past medical history includes hypertension, uveitis, and IgG4 nephropathy, presents to the emergency department with right eye pain. Patient states he usually takes 5mg prednisone tablets and eye drops, but recently ran out of the tablets. Patient states he woke up in a lot of pain today, so he came to the ER. Patient denies any fevers, chills, headache, dizziness, chest pain, shortness of breath, cough, abdominal pain, nausea, vomiting, diarrhea, back pain, neck pain, or any other complaint. Time/Duration: Prior to Arrival Symptom Onset: Gradual Symptom Course: Unchanged Quality: Stabbing Activities at Onset: Sleeping Context: Home 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 after having deviated septum sx, has had for last 2 yrs recurrent migranes and uvitis, c/o photophobia, blurred vision r eye - Renal Hx Renal Disorder: Yes Hx Dialysis: No Other/Comment: 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 - Endocrine/Metabolic Hx Endocrine Disorders: No - Hematological/Oncological Hx Blood Disorders: Yes Hx Cancer: No Hx Chemotherapy: Yes - Integumentary Hx Dermatological Disorder: Yes Other/Comment: multiple tatoos - Musculoskeletal/Rheumatological Hx Falls: No - Gastrointestinal Hx Gastrointestinal Disorders: No Other/Comment: colonoscopy - Genitourinary/Gynecological Hx Genitourinary Disorders: Yes Hx Prostate Problems: (pt denies prostate problems) - Psychiatric Hx Psychophysiologic Disorder: No Hx Substance Use: No - Surgical History Hx Cholecystectomy: Yes (2015) - Anesthesia Hx Anesthesia: Yes Hx Anesthesia Reactions: No Hx Malignant Hyperthermia: No - Suicidal Assessment Feels Threatened In Home Enviroment: No Family/Social History - Physician Review Nursing Documentation Reviewed: Yes Family/Social History: No Known Family HX Smoking Status: Never Smoked Hx Alcohol Use: Yes (10 beers/week) Hx Substance Use: No Hx Substance Use Treatment: No Allergies/Home Meds Allergies/Adverse Reactions: Allergies No Known Allergies Allergy (Verified 09/07/18 08:30) Home Medications: Home Meds Medication Instructions Recorded Confirmed Alprazolam [Xanax] 0.25 mg PO PRN PRN 06/01/18 10/19/18 amLODIPine [Norvasc] 5 mg PO DAILY 06/01/18 10/19/18 predniSONE [predniSONE Tab] 5 mg PO DAILY 06/01/18 10/19/18 Review of Systems - Physician Review All systems were reviewed & negative as marked: Yes - Review of Systems Constitutional: absent: Fevers, Night Sweats Eyes: Eye Pain Respiratory: absent: SOB, Cough Cardiovascular: absent: Chest Pain Gastrointestinal: absent: Abdominal Pain, Diarrhea, Nausea, Vomiting Musculoskeletal: absent: Back Pain, Neck Pain Neurological: absent: Headache, Dizziness Physical Exam Vital Signs Reviewed: Yes Vital Signs Temp Pulse Resp BP Pulse Ox 12/25/18 04:10 97.7 F 78 18 175/100 H 98 Temperature: Afebrile Blood Pressure: Hypertensive Pulse: Regular Respiratory Rate: Normal Appearance: Positive for: Well-Appearing, Non-Toxic, Comfortable Pain Distress: None Mental Status: Positive for: Alert and Oriented X 3 - Systems Exam Head: Present: Atraumatic, Normocephalic Pupils: Present: PERRL, Other (Visual acuity intact) Extroacular Muscles: Present: EOMI Conjunctiva: Present: Injected (Injected sclera of the right eye), Other (Clear watery discharge noted) Mouth: Present: Moist Mucous Membranes Neck: Present: Normal Range of Motion Respiratory/Chest: Present: Clear to Auscultation, Good Air Exchange. No: Respiratory Distress, Accessory Muscle Use Cardiovascular: Present: Regular Rate and Rhythm, Normal S1, S2. No: Murmurs Abdomen: No: Tenderness, Distention, Peritoneal Signs Back: Present: Normal Inspection Upper Extremity: Present: Normal Inspection. No: Cyanosis, Edema Lower Extremity: Present: Normal Inspection. No: Edema Neurological: Present: GCS=15, CN II-XII Intact, Speech Normal Skin: Present: Warm, Dry, Normal Color. No: Rashes Psychiatric: Present: Alert, Oriented x 3, Normal Insight, Normal Concentration Medical Decision Making ED Course and Treatment: 12/25/18 04:43 Impression: 58 year old male presents with right eye pain Plan: -- Norvasc -- Prednisone -- Reassess and disposition Prior Visits: Notes and results from previous visits were reviewed. Progress Notes: 12/25/18 0530 Patient blood pressure rechecked with pressure decreasing. He reports improvement in his symptoms and desires to go home. He is advised to follow up with his PCP for continued steroid doses and monitoring of symptoms. He is given pain management physicians he may follow up with per his request. Scripts provided and return protocol explained. He is stable for discharge. - Medication Orders Current Medication Orders: Prednisone (Prednisone Tab) 5 mg PO STAT STA Stop: 12/25/18 04:25 - Scribe Statement The provider has reviewed the documentation as recorded by the Ritaibe Benny Saleh Provider Scribe Attestation: All medical record entries made by the Scribe were at my direction and personally dictated by me. I have reviewed the chart and agree that the record accurately reflects my personal performance of the history, physical exam, medical decision making, and the department course for this patient. I have also personally directed, reviewed, and agree with the discharge instructions and disposition. Disposition/Present on Arrival - Present on Arrival Any Indicators Present on Arrival: No History of DVT/PE: No History of Uncontrolled Diabetes: No Urinary Catheter: No History of Decub. Ulcer: No History Surgical Site Infection Following: None - Disposition Have Diagnosis and Disposition been Completed?: Yes Diagnosis: Chronic uveitis Disposition: HOME/ ROUTINE Disposition Time: 05:30 Patient Plan: Discharge Condition: STABLE Discharge Instructions (ExitCare): Uveitis Print Language: AUSTRIAN Additional Instructions: All medical record entries made by the Scribe were at my direction and personally dictated by me. I have reviewed the chart and agree that the record accurately reflects my personal performance of the history, physical exam, medical decision making, and the department course for this patient. I have also personally directed, reviewed, and agree with the discharge instructions and disposition. Prescriptions: predniSONE [predniSONE Tab] 5 mg PO QID #60 tab Referrals: Jeovany Benton MD [Primary Care Provider] - Follow up with primary Moustapha Hoffman MD [Medical Doctor] - Follow up with primary Seckin,Ali Inanc, MD [Medical Doctor] - Follow up with primary Forms: [employer] (Bengali)
[2018-12-25 04:56] VITALS: BP 145/90; PULSE 80; O2SAT 99
== END 2018-12-25 04:50 | disposition home or self-care (01) ==
LOC: ED 03:50
DX: H20.11 Chronic iridocyclitis, right eye (principal); I10 Essential (primary) hypertension

== ENCOUNTER 2019-03-29 15:36 | Emergency (ER) | payer MEDICARE ==
[2019-03-29 15:36] VITALS: BMI 27.4
--- NOTE | 2019-03-29 17:28 | ED PDOC ---
Arrival/HPI - General Chief Complaint: Abnormal Skin Integrity Time Seen by Provider: 03/29/19 16:47 Historian: Patient - History of Present Illness Narrative History of Present Illness (Text): 03/29/19 17:24 58-year-old male presents today with pain swelling and redness to the left thigh. Patient believes that he may have been bit by something yesterday. Patient states he has a history of frequent skin infection/abscess. Patient denies fevers or chills. Complaining of minimal pain to the left thigh. Denies numbness weakness or tingling in the extremity. No chest pain or shortness of breath. No other complaints Past Medical History - Provider Review Nursing Documentation Reviewed: Yes - Travel History Have you recently traveled outside [place] w/in the past 3 mons?: No - Past History Past History: No Previous - Infectious Disease Hx of Infectious Diseases: None - Tetanus Immunization Tetanus Immunization: Unknown - Reproductive Currently Lactating: No - Cardiac Hx Cardiac Disorders: No Hx Hypertension: Yes - Pulmonary Hx Bronchitis: Yes - Neurological Hx Migraine: Yes - HEENT Hx HEENT Disorder: Yes (CELLULITIS TO LEFT EYE) Other/Comment: sx for deviated septum 4 yrs ago, c/o of having 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 after having deviated septum sx, has had for last 2 yrs recurrent migranes and uvitis, c/o photophobia, blurred vision r eye - Renal Hx Renal Disorder: Yes Hx Dialysis: No Other/Comment: 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 - Endocrine/Metabolic Hx Endocrine Disorders: No - Hematological/Oncological Hx Blood Disorders: Yes Hx Cancer: No Hx Chemotherapy: Yes - Integumentary Hx Dermatological Disorder: Yes Other/Comment: multiple tatoos - Musculoskeletal/Rheumatological Hx Falls: No - Gastrointestinal Hx Gastrointestinal Disorders: No Other/Comment: colonoscopy - Genitourinary/Gynecological Hx Genitourinary Disorders: Yes Hx Prostate Problems: (pt denies prostate problems) - Psychiatric Hx Psychophysiologic Disorder: No Hx Substance Use: No - Surgical History Hx Cholecystectomy: Yes (2015) - Anesthesia Hx Anesthesia: Yes Hx Anesthesia Reactions: No Hx Malignant Hyperthermia: No - Suicidal Assessment Feels Threatened In Home Enviroment: No Family/Social History - Physician Review Nursing Documentation Reviewed: Yes Family/Social History: Unknown Family HX Smoking Status: Never Smoked Hx Alcohol Use: Yes (10 beers/week) Hx Substance Use: No Hx Substance Use Treatment: No Allergies/Home Meds Allergies/Adverse Reactions: Allergies No Known Allergies Allergy (Verified 09/07/18 08:30) Home Medications: Home Meds Medication Instructions Recorded Confirmed Alprazolam [Xanax] 0.25 mg PO PRN PRN 06/01/18 10/19/18 amLODIPine [Norvasc] 5 mg PO DAILY 06/01/18 10/19/18 predniSONE [predniSONE Tab] 5 mg PO DAILY 06/01/18 10/19/18 Review of Systems - Review of Systems Constitutional: absent: Fatigue, Fevers Respiratory: absent: SOB, Cough Cardiovascular: absent: Chest Pain, Palpitations Gastrointestinal: absent: Abdominal Pain, Nausea, Vomiting Skin: Abscess, Cellulitis Neurological: absent: Headache, Dizziness Psychiatric: absent: Anxiety, Depression Physical Exam Vital Signs Reviewed: Yes Temperature: Afebrile Blood Pressure: Normal Pulse: Regular Respiratory Rate: Normal Appearance: Positive for: Well-Appearing, Non-Toxic, Comfortable Pain Distress: None Mental Status: Positive for: Alert and Oriented X 3 - Systems Exam Head: Present: Atraumatic Mouth: Present: Moist Mucous Membranes Neck: Present: Normal Range of Motion Respiratory/Chest: Present: Clear to Auscultation, Good Air Exchange. No: Respiratory Distress, Accessory Muscle Use Cardiovascular: Present: Regular Rate and Rhythm, Normal S1, S2. No: Murmurs Abdomen: No: Tenderness Lower Extremity: Present: Normal ROM, Tenderness (left thigh; there is a 2cm round area of erythema and induration without central fluctuance without purulent discharge. ), Erythema, Neurovascularly Intact, Capillary Refill < 2 s Medical Decision Making ED Course and Treatment: 03/29/19 17:49 58yr old male with abscess/cellulitis to left thigh since today. no fever/chills. pt with hx of htn; bp elevated. case discussed with dr. Garces; he advised given 0.1mg of clonidine and 25mg of hydralazine pO for htn. case discussed with Dr. benton; he states patient has CKD. agrees with clonidine and hydralazine. will give patient 0.1mg of clonidine and 25mg of hydralazine and have patient f/u on monday in the office for BP check. pt with early abscess, no fluctuance with surrounding cellulitis. will start patient on bactrim and keflex for cellulitis. Patient reassessment: pt is non toxic well appearing; no distress. stable vitals. pt denies headaches, dizziness, weakness, cp, sob, abdominal pain, back pain. pt states he has hx of HTN and BP is always elevated when he is in pain. BP is trending downward; pt remains asymptomatic; pt with asymptomatic htn. and cellulitis with early abscess to the left thigh; area of erythema marked with skin marker. pt advised to f/u with dr. benton on monday and return to the ER immediately if symptoms worsen,persist or if new symptoms develop. advised taking abx as prescribed. Patient verbalizes understanding of discharge instructions and need for immediate followup. All aspects of this case were discussed the attending of record. Impression: Early abscess, cellulitis, hypertension tylenol every 4 hours as needed for pain. Bactrim 1 tablet twice daily x7 days Keflex 1 capsule 4 times daily x7 days Apply warm compresses frequently Follow-up with a primary care physician on Monday regarding your elevated blood pressure Return immediately if symptoms worsen persist or if new concerning symptoms develop: High fevers, increasing pain, increasing redness, increasing swelling, purulent discharge Disposition/Present on Arrival - Present on Arrival Any Indicators Present on Arrival: No History of DVT/PE: No History of Uncontrolled Diabetes: No Urinary Catheter: No History of Decub. Ulcer: No History Surgical Site Infection Following: None - Disposition Have Diagnosis and Disposition been Completed?: Yes Diagnosis: Cellulitis, Hypertension, Abscess Disposition Time: 17:59 Patient Plan: Discharge Patient Problems: Current Active Problems Problem Status Onset Abscess Acute Cellulitis Acute Hypertension Chronic Condition: GOOD Discharge Instructions (ExitCare): Cellulitis (ED), High Blood Pressure in Adults, Boil (DC) Additional Instructions: tylenol every 4 hours as needed for pain. Bactrim 1 tablet twice daily x7 days Keflex 1 capsule 4 times daily x7 days Apply warm compresses frequently Follow-up with a primary care physician on Monday regarding your elevated blood pressure Follow up with the surgeon within the next 2 days. Return immediately if symptoms worsen persist or if new concerning symptoms develop: High fevers, increasing pain, increasing redness, increasing swelling, purulent discharge Prescriptions: Cephalexin [Keflex] 500 mg PO QID #28 capsule Sulfamethoxazole/Trimethoprim [Bactrim DS 800 mg-160 mg] 1 tab PO BID #14 tab Referrals: Jeovany Benton MD [Family Provider] - Follow up with primary Francisco Garcia MD [Staff Provider] - Follow up with primary Forms: [employer] (Ukrainian), WORK NOTE
[2019-03-29 17:31] VITALS: RESP 18
[2019-03-29] MEDS ORDERED: Tmp-Smz 800 mg-160 mg DS Tab PO STA (17:37)
[2019-03-29 19:18] VITALS: BP 173/109; PULSE 75; O2SAT 100
== END 2019-03-29 19:24 | disposition home or self-care (01) ==
LOC: ED 15:36
DX: L03.116 Cellulitis of left lower limb (principal); L02.416 Cutaneous abscess of left lower limb; I10 Essential (primary) hypertension